=== PATIENT | male | born 1940 | race Caucasian/White ===

== ENCOUNTER 2017-03-16 14:25 | Outpatient (CLI) | payer MEDICARE ==
--- NOTE | 2017-03-16 17:44 | XRAY Report ---
TWO VIEW CHEST: 03/16/2017 CLINICAL INDICATION: Decreased breath sounds right base. COMPARISON: 10/15/2014 Frontal and lateral views of the chest demonstrate a normal cardiac silhouette. The lungs remain hyp erinflated. No focal infiltrate, effusion, or pneumothorax is present. IMPRESSION: STABLE COPD. NO EVIDENCE OF ACUTE CARDIOPULMONARY DISEASE. JOB #: [id number] EXT JOB #:[id number]
== END 2017-03-16 14:26 | disposition home or self-care (01) ==
LOC: DI 14:25
PROVIDERS: ATTEND Physician Assistant Medical
DX: J44.9 Chronic obstructive pulmonary disease, unspecified (principal)
CPT/HCPCS: 71020

== ENCOUNTER 2017-04-03 10:55 | Outpatient (CLI) | payer MEDICARE ==
--- NOTE | 2017-04-03 12:56 | XRAY Report ---
THREE VIEW LEFT SHOULDER: 04/03/2017 CLINICAL INDICATION: Pain. FINDINGS: Internal and external rotational views and a scapular Y view of the left shoulder demonstr ate mild osteoarthritis of the glenohumeral joint. There is no evidence of acute fracture or dislocat ion. No radiopaque foreign body is seen in the soft tissues. IMPRESSION: MILD OSTEOARTHRITIS. JOB #: [id number] EXT JOB #:[id number]
== END 2017-04-03 10:56 | disposition home or self-care (01) ==
LOC: DI 10:55
PROVIDERS: ATTEND Internal Medicine
DX: M19.012 Primary osteoarthritis, left shoulder (principal)

== ENCOUNTER 2018-12-24 11:45 | Outpatient (CLI) | payer MEDICARE ==
[2018-12-24 12:39] LABS: BASOPHILS % (AUTO) 0.5 %; EOSINOPHILS # (AUTO) 0.2 10^3/uL (0.0-0.7); HGB - HEMOGLOBIN 13.1 g/dL (14.0-18.0); LYMPHOCYTES # (AUTO) 2.1 10^3/uL (1.5-3.5); MEAN CORPUSCULAR HEMOGLOBIN 32.3 pg (27.0-31.0); MEAN CORPUSCULAR HGB CONC 33.7 g/dL (32.0-36.0); MONOCYTES # (AUTO) 0.6 10^3/uL (0.0-1.0); MONOCYTES % (AUTO) 10.3 %; NEUTROPHILS # (AUTO) 2.9 10^3/uL (1.5-6.6); PLT - PLATELET COUNT 180 10^3/uL (130-450); RED BLOOD COUNT 4.05 10^6/uL (4.70-6.10); WHITE BLOOD COUNT 5.9 x10^3/uL (4.8-10.8)
[2018-12-24 13:17] LABS: BUN - BLOOD UREA NITROGEN 21 mg/dL (6-20); CALCIUM 11.2 mg/dL (8.5-10.3); CARBON DIOXIDE - CO2 28 mmol/L (21-32); CHLORIDE 103 mmol/L (101-111); CREATININE 1.2 mg/dL (0.6-1.2); GFR - MDRD 58 (>89); GLUCOSE 114 mg/dL (70-100); SODIUM 140 mmol/L (135-145)
[2018-12-24 14:19] LABS: T4 (THYROXINE) 8.75 ug/dL (6.09-12.23)
[2018-12-24 14:22] LABS: CRP - C-REACTIVE PROTEIN < 1.0 mg/dL (0-1.0)
[2018-12-24 14:23] LABS: THYROID STIMULATING HORMONE 1.62 uIU/mL (0.34-5.60)
--- NOTE | 2018-12-24 16:11 | XRAY Report ---
Reason: PERICARDIAL FRICTION RUB Procedure Date: 12/24/2018 Accession Number: [id number] / [id number] Procedure: XR - Chest 2 View X-Ray CPT Code: 42156 FULL RESULT: EXAM: CHEST RADIOGRAPHY EXAM DATE: 12/24/2018 12:01 PM. CLINICAL HISTORY: PERICARDIAL FRICTION RUB. COMPARISON: CHEST 2 VIEW PA/LAT 05/17/2017 9:36 AM. TECHNIQUE: 2 views. FINDINGS: Lungs/Pleura: No focal opacities evident. No pleural effusion. No pneumothorax. Normal volumes. Mediastinum: Heart and mediastinal contours are unremarkable. Other: None. IMPRESSION: No focal consolidation. RADIA
== END 2018-12-24 11:46 | disposition home or self-care (01) ==
LOC: DI 11:45
PROVIDERS: ATTEND Family Medicine
DX: R01.2 Other cardiac sounds (principal)
CPT/HCPCS: 36415; 71046; 80048; 84436; 84443; 84481; 85025; 85651; 86140

== ENCOUNTER 2018-12-25 10:44 | Emergency (ER) | payer MEDICARE ==
[2018-12-25] MEDS ORDERED: LIDOCAINE PATCH 5% TOP STA (11:23)
[2018-12-25 11:33] LABS: BASOPHILS % (AUTO) 0.5 %; EOSINOPHILS # (AUTO) 0.2 10^3/uL (0.0-0.7); LYMPHOCYTES % (AUTO) 32.6 %; MEAN CORPUSCULAR HEMOGLOBIN 32.3 pg (27.0-31.0); MEAN CORPUSCULAR HGB CONC 33.6 g/dL (32.0-36.0); MEAN CORPUSCULAR VOLUME 96.3 fL (80.0-94.0); MEAN PLATELET VOLUME 9.6 fL (7.4-11.4); MONOCYTES # (AUTO) 0.6 10^3/uL (0.0-1.0); MONOCYTES % (AUTO) 10.4 %; NEUTROPHILS # (AUTO) 3.2 10^3/uL (1.5-6.6); PLT - PLATELET COUNT 170 10^3/uL (130-450); RED BLOOD COUNT 4.02 10^6/uL (4.70-6.10); WHITE BLOOD COUNT 6.1 x10^3/uL (4.8-10.8)
--- NOTE | 2018-12-25 11:38 | ED Physician Documentation ---
PD HPI CHEST PAIN - Stated complaint Stated Complaint: CHEST PX - Chief complaint Chief Complaint: Cardiac - History obtained from History obtained from: Patient, Family - History of Present Illness Timing - onset: How many months ago (1) Timing - onset during: Other (movement) Timing - duration: Months (1) Timing - details: Gradual onset, Still present, Other (worse in the last 2 days) Quality: Sharp Location: Right chest Radiation: Other (none) Improved by: Rest Worsened by: Movement, Palpation, Other (deep breathing) Associated symptoms: No: Shortness of air, Diaphoresis, Nausea, Vomiting, Feeling faint / dizzy, General Weakness, Palpitations, Cough Similar symptoms before: Has not had sx before Recently seen: Clinic (yesterday had a chest xray) Review of Systems Ten Systems: 10 systems reviewed and negative Constitutional: denies: Fever, Chills Cardiac: reports: Chest pain / pressure Respiratory: denies: Dyspnea, Cough GI: denies: Abdominal Pain, Nausea, Vomiting Skin: denies: Rash Musculoskeletal: denies: Neck pain, Back pain, Extremity pain, Extremity swelling Neurologic: denies: Focal weakness, Numbness Immunocompromised: reports: Other (hx of multiple myeloma) PD PAST MEDICAL HISTORY - Past Medical History Past Medical History: Yes Cardiovascular: Hypertension Respiratory: Asthma, Pneumonia, Other Endocrine/Autoimmune: None GI: None : Benign prostate hypertrophy HEENT: None Psych: None Musculoskeletal: Osteoarthritis Derm: Other - Past Surgical History Past Surgical History: Yes General: Colonoscopy Ortho: Hip replacement, Spine surgery HEENT: Tonsil/Adenoidectomy - Present Medications Home Medications: Ambulatory Orders Medication Instructions Recorded Confirmed Finasteride [Proscar] 5 mg PO DAILY 11/19/12 10/17/18 RX: Hydrochlorothiazide 25 mg PO DAILY 11/19/12 10/17/18 RX: Potassium Chloride 20 meq PO BID 11/19/12 10/17/18 Albuterol [Ventolin Hfa] 1 puffs INH DAILY PRN 02/04/15 10/17/18 Doxazosin [Cardura] 12 mg PO DAILY 02/15/17 10/17/18 Calcium Carbonate [Tums (Calcium 500 mg PO ONCE PRN 02/21/18 10/17/18 Carbonate 500mg)] RX: Aspirin 81 mg PO DAILY 02/21/18 10/17/18 Lenalidomide [Revlimid] 1 udtab ORAL DAILY 03/07/18 10/17/18 RX: dexAMETHasone [Dexamethasone] 1 tab ORAL DAILY 03/07/18 10/17/18 Psyllium [Metamucil] 1 packet PO DAILY PRN 03/21/18 10/17/18 RX: dexAMETHasone [Dexamethasone] 12 mg PO Q7D 05/16/18 10/17/18 RX: Lidocaine Ointment 5% 1 applic TOP BID 10/17/18 10/17/18 [Xylocaine Ointment 5%] RX: HYDROmorphone [Dilaudid] 2 mg PO Q6H PRN #20 tablet 12/25/18 - Allergies Allergies/Adverse Reactions: Allergies Allergy/AdvReac Type Severity Reaction Status Date / Time No Known Drug Allergies Allergy Verified 10/17/18 08:42 - Social History Does the pt smoke?: No Smoking Status: Never smoker Does the pt drink ETOH?: Yes Does the pt have substance abuse?: No - Immunizations Immunizations are current?: Yes - POLST Patient has POLST: No PD ED PE NORMAL - Vitals Vital signs reviewed: Yes - General General: Alert and oriented X 3, No acute distress, Well developed/nourished - HEENT HEENT: Atraumatic - Neck Neck: Supple, no meningeal sign, No JVD - Cardiac Cardiac: RRR, No murmur, No gallop, No rub - Respiratory Respiratory: No respiratory distress, Clear bilaterally - Abdomen Abdomen: Soft, Non tender, Non distended - Male Male : Deferred - Rectal Rectal: Deferred - Derm Derm: Normal color, Warm and dry, No rash - Extremities Extremities: No deformity, No tenderness to palpate, No edema - Neuro Neuro: Alert and oriented X 3 Eye Opening: Spontaneous Motor: Obeys Commands Verbal: Oriented GCS Score: 15 - Psych Psych: Normal mood, Normal affect PD ED PE EXPANDED - Cardiac Cardiac: Chest wall TTP (right mid chest wall, moderate, no crepitus) Results - Vitals Vitals: Oxygen O2 Source [] Room air O2 Source [] Room air O2 Source Room air - EKG (time done) 11:06 Rate: Rate (enter#) Rhythm: NSR, Other (occasional PVCs) [place]: Normal Intervals: Normal SC QRS: Normal Computer interpretation: Agree with computer - Labs Labs: Laboratory Tests 12/25/18 12/25/18 12/25/18 11:26 11:26 11:26 WBC 6.1 RBC 4.02 L Hgb 13.0 L Hct 38.7 L MCV 96.3 H MCH 32.3 H MCHC 33.6 RDW 13.0 Plt Count 170 MPV 9.6 Neut # (Auto) 3.2 Lymph # (Auto) 2.0 [place] # (Auto) 0.6 Eos # (Auto) 0.2 Baso # (Auto) 0.0 Absolute Nucleated RBC 0.00 Nucleated RBC % 0.0 PT INR Sodium 140 Potassium 3.9 Chloride 103 Carbon Dioxide 26 Anion Gap 11.0 BUN 22 H Creatinine 1.2 Estimated GFR (MDRD) 58 L Glucose 115 H Calcium 11.3 H Total Bilirubin 0.9 AST 21 ALT 23 Alkaline Phosphatase 67 Troponin I < 0.04 Total Protein 7.0 Albumin 4.1 Globulin 2.9 Albumin/Globulin Ratio 1.4 Lipase 36 12/25/18 11:26 WBC RBC Hgb Hct MCV MCH MCHC RDW Plt Count MPV Neut # (Auto) Lymph # (Auto) [place] # (Auto) Eos # (Auto) Baso # (Auto) Absolute Nucleated RBC Nucleated RBC % PT 11.2 INR 1.0 Sodium Potassium Chloride Carbon Dioxide Anion Gap BUN Creatinine Estimated GFR (MDRD) Glucose Calcium Total Bilirubin AST ALT Alkaline Phosphatase Troponin I Total Protein Albumin Globulin Albumin/Globulin Ratio Lipase - Rads (name of study) CXR Radiology: EMP read indepedently (no acute disease) CTA chest Radiology: Final report received (negative for PE, but sternal mass present as wall as vertebral mass in thoracic spine ) PD MEDICAL DECISION MAKING - ED course Complexity details: reviewed results, re-evaluated patient, considered differential, d/w patient, d/w family ED course: ddx - ACS, pleurisy, pericarditis, PE, pleural effusion, chest wall pain, co stochondritic, nonspecific chest pain, GERD, TAD 78 y/o M with hx of multiple myeloma in remission, pt with chest pain for months worsening for a few days. Worse with movement and deep breathing. EKG is nonischemic, CXR without acute abnormality. Given lidoderm patch and analgesics here. Given persistent pain despite treatment here. Thus obtained CTA to eval for pE. CTA neg for PE but shows a sternal mass c/w recurrent myeloma. Discussed this with pt, family, PCP and his Oncologist Dr. Olivares who will help in arranging radiation therapy. Pt however is currently stable for discharge with continued outpt mgmt. Departure - Departure Disposition: Home, Self Care Clinical Impression: Mass of sternum, Chest pain Condition: Fair Record reviewed to determine appropriate education?: Yes Follow-Up: Sebastian Dias MD [Primary Care Provider] - Prescriptions: RX: HYDROmorphone [Dilaudid] 2 mg PO Q6H PRN #20 tablet PRN Reason: Pain Comments: I discussed your symptoms and findings of your CT scan with Oncologist Dr. Olivares who will provide you with a referral to radiation oncology to treat your pain and your cancer. Take the hydromorphone as needed for pain. You should return to the ED if worsening symptoms. Discharge Date/Time: 12/25/18 16:42
[2018-12-25 11:47] LABS: PT - PROTHROMBIN TIME 11.2 secs (9.9-12.6)
[2018-12-25 11:51] LABS: ALBUMIN 4.1 g/dL (3.2-5.5); ALBUMIN/GLOBULIN RATIO 1.4 (1.0-2.2); BILIRUBIN,TOTAL 0.9 mg/dL (0.2-1.0); CALCIUM 11.3 mg/dL (8.5-10.3); CREATININE 1.2 mg/dL (0.6-1.2)
--- NOTE | 2018-12-25 12:05 | XRAY Report ---
Reason: chest pain Procedure Date: 12/25/2018 Accession Number: [id number] / [id number] Procedure: XR - Chest 2 View X-Ray CPT Code: 18783 FULL RESULT: EXAM: CHEST RADIOGRAPHY EXAM DATE: 12/25/2018 11:41 AM. CLINICAL HISTORY: Chest pain. COMPARISON: CHEST 2 VIEW 12/24/2018 11:52 AM. TECHNIQUE: 2 views. FINDINGS: Lungs/Pleura: No focal opacities evident. No pleural effusion. No pneumothorax. High lung volumes with flattened diaphragms. Mediastinum: Heart and mediastinal contours are stable, mild borderline cardiomegaly. Other: None. IMPRESSION: The lung volumes and flattened diaphragms are often seen in the setting of obstructive lung disease. RADIA
[2018-12-25] MEDS ORDERED: HYDROmorphone 1 MG/ML CARPUJECT IVP STA (13:08)
[2018-12-25] MEDS ORDERED: IOVERSOL 320 100 ML VIAL IVP ONE ×2 (13:22→13:50)
--- NOTE | 2018-12-25 14:53 | CT Report ---
Reason: Right chest pain with deep breath eval for PE Procedure Date: 12/25/2018 Accession Number: [id number] / [id number] Procedure: CT - ANGIO CHEST W/WO CPT Code: FULL RESULT: EXAM: CT ANGIOGRAM CHEST EXAM DATE: 12/25/2018 01:49 PM. CLINICAL HISTORY: Right chest pain with deep breath. Evaluate for pulmonary embolus. COMPARISON: None. TECHNIQUE: Routine helical imaging was performed through the chest in the pulmonary arterial phase. IV Contrast: OPTI 320, 80 mL. Reconstructions: Coronal 3-D MIP reconstructions. Sagittal and coronal. In accordance with CT protocol optimization, one or more of the following dose reduction techniques were utilized for this exam: automated exposure control, adjustment of mA and/or KV based on patient size, or use of iterative reconstructive technique. FINDINGS: Pulmonary Arteries: Diagnostic quality: Limited through the segmental arteries, adequate to the lobar arteries and most proximal segmental branch point. No evidence for sizable acute or chronic pulmonary emboli in this setting. RV/LV is within normal limits. There is no interventricular septal bowing. There is no reflux of contrast material in the IVC. Lungs/Pleura: No consolidation, nodules, or edema. No effusions or pneumothorax. Mediastinum: No lymphadenopathy by size criteria. No pericardial effusion. Thoracic Aorta: Mildly calcified. Upper Abdomen: Unremarkable. Other: There is a 2.6 x 2.8 cm lesion in the T11 vertebral body with destruction of the inferior endplate and discontinuity of the posterior border of the vertebral body against the spinal canal in the setting of osteopenia and diffuse lytic lesions. Separately, there is an expansile destructive mass in the sternum, approximately 4.5 x 4.8 cm as seen on image 103 series 12. A 1.7 cm subcutaneous superficial soft tissue nodule of the mid thoracic back most likely represents a sebaceous cyst. Malignant metastatic nodule would be highly unlikely unless the patient is found to have melanoma or similar entity known to present in this fashion. IMPRESSION: No PE. Osseous metastatic disease including sternal mass and T11 lytic lesion as described. RADIA The call report notification system was initiated by Dr. Isidro Hansen at 02:52 PM on 12/25/2018. The above call report findings were discussed with Erika Hedrick by Dr. Isidro Hansen at 02:54 PM on 12/25/2018.
[2018-12-25] MEDS ORDERED: HYDROcod/ACETAM 5/325 MG TABLET PO STA (16:34)
[2018-12-25 16:43] VITALS: BP 141/81
== END 2018-12-25 16:42 | disposition home or self-care (01) ==
LOC: ED 10:44
DX: R07.9 Chest pain, unspecified (principal); I49.3 Ventricular premature depolarization; M89.8X8 Other specified disorders of bone, other site; Z85.79 Personal history of other malignant neoplasms of lymphoid, hematopoietic and related tissues; I10 Essential (primary) hypertension; Z79.82 Long term (current) use of aspirin
CPT/HCPCS: 36415; 71046; 71275; 80053; 83690; 84484; 85025; 85610; 93005; 96374; 99284; 99285; A9270; J1170; Q9967

== ENCOUNTER 2018-12-27 08:26 | Outpatient (CLI) | payer MEDICARE ==
[2018-12-27 17:32] LABS: T4 (THYROXINE) 7.84 ug/dL (6.09-12.23)
[2018-12-27 17:35] LABS: THYROID STIMULATING HORMONE 2.69 uIU/mL (0.34-5.60)
== END 2018-12-27 08:27 | disposition home or self-care (01) ==
LOC: LAB.S 08:26
PROVIDERS: ATTEND Family Medicine
DX: R01.2 Other cardiac sounds (principal)
CPT/HCPCS: 36415; 80048; 84436; 84443; 84481; 85025; 85651; 86140

== ENCOUNTER 2019-01-16 17:56 | Outpatient (CLI) | payer MEDICARE ==
[2019-01-16 18:17] LABS: VBG PH 7.421 (7.31-7.41)
[2019-01-16 18:22] LABS: CALCIUM 9.7 mg/dL (8.5-10.3); CREATININE 1.4 mg/dL (0.6-1.2)
== END 2019-01-16 17:57 | disposition home or self-care (01) ==
LOC: LAB 17:56
PROVIDERS: ATTEND Family Medicine
DX: E83.52 Hypercalcemia (principal); C90.00 Multiple myeloma not having achieved remission; M99.9 Biomechanical lesion, unspecified; R01.2 Other cardiac sounds
CPT/HCPCS: 36415; 80048; 82330

== ENCOUNTER 2019-04-09 11:08 | Outpatient (CLI) | payer MEDICARE ==
--- NOTE | 2019-04-09 17:48 | CONSULTATION NOTE ---
Palliative Care Consultation - Referral Referring Provider: Dr. Jackie Olivares Time of Visit: 11:30-12:45 Referral setting: [facility] [place] [facility] [place] Reason: Pain of neoplastic origin/Recurrent Multiple Myeloma/COPD - Information Sources Records reviewed: Previous records reviewed History/Review of Systems obtained from: Patient, Family ( Abigail at visit) Exam limitations: No limitations - History of Present Illness Brief History of Present Illness: This is an 79-year-old gentleman who has had multiple myeloma originally diag nosed in 2006. He has had multiple treatments, including treatment with thalidomide and Velcade, Revlimid with residual peripheral neuropathy. He has been on Pomacyst since 02/08/2019. He did present to [facility] 12/25 with acute chest pain, and found to have hypercalcemia as well as recurrent multiple myeloma lesions to his sternum and thoracic spine for which he received radiation. He was hospitalized briefly over at [facility] during this time in December. He continues to struggle with pancytopenia, requiring recent transfusion. He does not perceive benefit, though did not get significant "bump" in his counts. He still remains quite anemic today. During that time he also had a history of malignant hypercalcemia with worsening renal functioning this has improved and resolved. Palliative care to see patient regarding ongoing and progressive pain, fatigue, advanced care planning as well as addressing goals of care. Medical/Surgical History - Past Medical History Cardiovascular: reports: Hypertension Respiratory: reports: Asthma, COPD, Pneumonia, Other Neuro: Tremors Endocrine/Autoimmune: reports: None GI: reports: None : reports: Benign prostate hypertrophy HEENT: reports: None Psych: reports: None Musculoskeletal: reports: Osteoarthritis, Fatigue Derm: reports: Other MRSA Hx?: No Other Past Medical History: hx of hypercalciumia - Past Surgical History General: reports: Colonoscopy Ortho: reports: Hip replacement, Spine surgery HEENT: reports: Tonsil/Adenoidectomy Derm: reports: Skin cancer surgery (malignant melanoma) Social History - Living Situation Living arrangement: At home Living Situation: With spouse/s.o. Support System: Patient is a retired telephone repairman, had come up from [place], he and his have been 54 years. They do have 2 daughters, and a huge circles of friends[place] She does have 2 sisters who are quite close to her and can provide support. She herself is pending surgery scheduled for replacement of the hip, that she needs to follow through on it is scheduled for April. Family History - Family History Family History: Mother: , Cancer (she at 100), Father: , CAD ( age 70) Medications/Allergies - Medications Home Medications: Ambulatory Orders Medication Instructions Recorded Confirmed Finasteride [Proscar] 5 mg PO DAILY 11/19/12 04/11/19 Potassium Chloride 20 meq PO BID 11/19/12 04/11/19 Albuterol [Ventolin Hfa] 2 puffs INH Q4HR PRN 02/04/15 04/11/19 Doxazosin [Cardura] 8 mg PO DAILY 02/15/17 04/11/19 dexAMETHasone [Dexamethasone] 20 mg PO Q7D 02/06/19 04/11/19 Pomalidomide [Pomalyst] 3 mg PO DAILY 02/07/19 04/11/19 Ixazomib Citrate [Ninlaro] 4 mg PO ONCE 04/03/19 04/11/19 Cholecalciferol (Vitamin D3) 2,000 unit PO DAILY 04/11/19 04/11/19 [Vitamin D3] Multivitamin [Multivitamins] 1 tab PO DAILY 04/11/19 04/11/19 Polyethylene Glycol 3350 [Miralax] 17 gm PO DAILY 04/11/19 04/11/19 Sennosides [Senna Lax] 1 tab PO BID PRN 04/11/19 04/11/19 oxyCODONE [Roxicodone] 5 mg PO Q4HR PRN 04/11/19 04/11/19 - Allergies Allergies/Adverse Reactions: Allergies Allergy/AdvReac Type Severity Reaction Status Date / Time No Known Drug Allergies Allergy Verified 03/26/19 11:27 Review of Systems - Constitutional Constitutional: reports: Fatigue, Weakness, Weight loss. denies: Fever, Chills - Ears, Nose & Throat Ears, Nose & Throat: reports: Hoarseness - Cardiovascular Cardiovascular: reports: Chest pain, Lightheadedness, Exertional dyspnea, Decr. exercise tolerance - Respiratory Respiratory: reports: Orthopnea, SOB at rest, SOB with exertion - Gastrointestinal Gastrointestinal: reports: Constipation, Poor appetite, Early satiety. denies: Nausea - Musculoskeletal Musculoskeletal: reports: Back pain, Stiffness, Muscle weakness - Integumentary Integumentary: reports: Dryness - Neurological Neurological: reports: General weakness, Numbness, Abnormal gait - Psychiatric Psychiatric: denies: Depression, Anxiety - Hematologic/Lymphatic Hematologic/Lymphatic: reports: Anemia (received transfusion with little improvment in SOB). denies: Recurrent infections - All Other Systems All Other Systems: reports: Reviewed and negative Physical Exam - Vital Signs Pulse Rate: 81 Respiratory Rate: 18 O2 Saturation: 98 (ra @ rest) Blood Pressure: 127/49 - Physical Exam General Appearance: positive: Alert, Mild distress (with breathlessness) Eyes Bilateral: positive: Normal inspection ENT: positive: No signs of dehydration, Other (voice hoarse; needing effort to get breath through vocal chords). negative: Pharyngeal erythema, Oral lesions Neck: positive: No JVD, Trachea midline Cardiovascular: positive: Regular rate & rhythm Respiratory: positive: Diminished throughout. negative: Wheezes, Rales, Rhonchi Abdomen: positive: Non-tender, Soft, Nml bowel sounds Skin: positive: Pallor, Dryness, Bruising Extremities: positive: No pedal edema Neurologic/Psychiatric: positive: Oriented x3, Mood/affect nml, Weakness Palliative Care - POLST Patient has POLST: No Pain: Pain worsening, Location (Patient presented in December with acute sternal pain, still has residual intermittent chest pains. Increased pain with deep inspiration, pain localized bilateral breast, up in shoulders, mid thoracic area over umbilical area as well as coccyx. Patient rates pain 9 out of 10. Has been using ibuprofen and acetaminophen without results. Patient quite anxious regarding using opioids, though has used in the past. Biggest fears are constipation and addiction.) Tiredness/Fatigue: Severe (7-10) Drowsiness/Sedation: Mild (1-3) Nausea: None Depression: None Anxiety: None Dyspnea: Severe (7-10), Comment (worsening; biggest QOL limitation) Anorexia: Moderate (4-6), Weight loss Sleep: Variable sleep pattern Constipation: Yes, Intermittent constipation Feelings of wellbeing/Perceived Quality of Life: Fair, Worsening Performance Status: Patient's most limiting factor for performance status, is his dyspnea and pain. He can only tolerate ambulate short distances without resting. He is able to manage his ADLs, but is quite sedentary given his limitations currently. He finds this quite frustrating. Has had to sleep in the recliner because it easier to get in and out of bed, for better breathing. - Palliative Care Discussion: Patient reports he has been fairly passive in his treatment program, has been able to tolerate quite well up to this point in time. This is time he has had significant impact on his quality of life and is quite concerned with his dyspnea and pain. He does feel like he has been on borrowed time, is quite pragmatic and somewhat pessimistic about looking forward as far as goals of care. He reports he does not feel like he asks enough questions, and does pre sent with multiple questions regarding his current disease process as well as implications of his lesions. Patient does not have any advanced care planning documents, will address this at future visits. 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 Patient presents with fairly significant symptom burden of severe dyspnea and severe pain. Patient does have pancytopenia and hemoglobin of 7.6 today. Palliative care meeting with patient to set up rapport, establish pain management program, and initiate conversation regarding advanced care planning for goals of care. Recommendations/Counseling Done: 1. Dyspnea. This is multifactorial in origin, patient has had recent radiation to his sternum, concern regarding pneumonitis. We will follow-up with Dr. jaswinder vincent if this is a possibility given his field of treatment. He is to have an echo tomorrow, though he did have one in the last 2 months that did not show any abnormal findings. Counseling provided regarding the role of anemia in the context of his dyspnea, essentially has less than a half tank of gas, and will feel effects with any kind of activity, patient does have poor activity tolerance currently. He is not hypoxic, but limited by his breathlessness. 2. Acute pain. Patient does have multiple lesions attributed to his multiple myeloma distributed across the T2, throughout the spine and sacrum. He also has underlying osteoarthritis and history of spinal surgery. Patient does awaken in pain, does not really able to find any kind of comfortable position. Patient's barriers for opioid use are worries about addiction and constipation. Counseling provided regarding addiction, and need for aggressive bowel program. 3. Constipation. Patient to initiate MiraLAX 17 g daily, and senna 1-2 tabs to titrate as needed for bowel program. Counseling provided and written instructions. 4. Fatigue. This is multifactorial in origin, mostly impacted also by his dyspnea and pain. Instructed and counseled regarding energy conservation, pacing activities, and staying active within the context of his activity tolerance. Patient most likely will need further transfusion support. 5. Recurrent multiple myeloma. Address questions regarding labs, symptom burden, and concerns regarding quality of life. Patient and are anxious to meet with provider again has to have more questions as they have been doing more research. Patient is hoping for the best, with extended quality and quantity of life, but does present with high symptom burden. 6. Advanced care planning. Palliative care established role of palliative care, development of rapport. Began exploration regarding goals of care, and setting of priorities. We will continue to explore in future visits. Time Spent: 75 minutes was given 50% of this done and counseling regarding pain and symptom management, opioid use and safety, bowel program, role of palliative care and anticipatory guidance. Plan for visit next week to follow-up on pain regimen, and titrate accordingly, she a long acting medication if indicated.
== END 2019-04-09 11:09 | disposition home or self-care (01) ==
LOC: PC 11:08
PROVIDERS: ATTEND Nurse Practitioner Adult Health
DX: Z51.5 Encounter for palliative care (principal); G89.3 Neoplasm related pain (acute) (chronic); R06.02 Shortness of breath; K59.00 Constipation, unspecified; J44.9 Chronic obstructive pulmonary disease, unspecified; D61.818 Other pancytopenia; C90.00 Multiple myeloma not having achieved remission; Z79.899 Other long term (current) drug therapy; Z79.891 Long term (current) use of opiate analgesic
CPT/HCPCS: 99205

== ENCOUNTER 2019-04-10 08:37 | Outpatient (CLI) | payer MEDICARE | END 2019-04-10 08:38 | disposition home or self-care (01) | LOC: DI 08:37 | PROVIDERS: ATTEND Internal Medicine Hematology & Oncology | DX: I35.0 Nonrheumatic aortic (valve) stenosis (principal); R06.02 Shortness of breath; R53.83 Other fatigue; C90.00 Multiple myeloma not having achieved remission | CPT/HCPCS: 93306 ==

== ENCOUNTER 2019-04-16 11:00 | Outpatient (CLI) | payer MEDICARE ==
--- NOTE | 2019-04-16 21:46 | CONSULTATION NOTE ---
Palliative Care Follow Up - Referral Referring Provider: Dr. Jackie Olivares Time of Visit: 9131-8189 Referral setting: [facility] – [place] Referral Reason: Pain of neoplastic origin/Dyspnea/Multiple Myeloma - Information Sources Records reviewed: Previous records reviewed History/Review of Systems obtained from: Patient, Family ( Gay @ visit) Exam limitations: No limitations - History of Present Illness Update Brief HPI Update: This an 79-year-old gentleman who has multiple myeloma of kappa light chain type, originally diagnosed in 2007. He has been on multiple treatments, and most recently on pomalidomide since 02/08/2019 and monthly Xgeva. Unfortunately he developed rapidly progressing bony mets, and required hospitalization at [facility] secondary to bone pain and hypercalcemia 12/25/2018, received palliative radiation to his sternum and thoracic spine. Patient has experienced pancytopenia, and though his counts have not worsened they have not improved his hemoglobin is 7.6 today. Patient's most distressing and persistent symptom that he rates a 10 out of 10 has been his dyspnea. He is only able to ambulate short distances, without resting. He has increased discomfort with deep inspiration, and poor activity tolerance. He is mostly sedentary, and certainly is most likely multifactorial with his anemia, but of concern particularly on the impact of his quality of life. On exam, he does have diminished breath sounds in the right lower lobe, no wheezing though he does report he has had some on and off but not responsive to his inhaler. He denies any fever or chills, any cough, but has developed some hoarseness that starts in the morning and resolves by evening. He denies pain with this, but is quite frustrated with his ongoing weakness and limiting breathlessness. His O2 sats are 98% at rest, with ambulation of 30 feet they decreased to 90%, and is getting quite concerned overall. He did have an echo on 04/10 which showed an ejection fraction of 55 to 60%, mild aortic stenosis and mildly abnormal right heart pressures. It did rule out any pericardial effusion, or pleural effusion. The other problematic symptom has been his pain, he does rated at an 8 out of 10. I did initiate [id number] oxycodone at 5 mg, which he has had no improvement in his pain management. His pain is fairly localized on the left and right chest area as well as in the back and scapula. Reports he has significant pain with twisting or turning, particularly getting in and out of bed. He reports is progressing as far as his ability to lift his arms over his head, this is limited both by pain and dyspnea. He also has some low-grade pain in his lumbar area no recent MRI showed T2 hyperintense marrow replacing lesions occupying the entirety of the imaged spine and sacrum, and some mild central canal bilateral for foraminal stenosis at L3-L4. Patient did try two oxycodone at the time, and did have a reaction of feeling hot and flushed and dizzy, without any relief of pain so was unwilling to try again at higher dose. He has been averaging about 4-5 oxycodone 5 mg in 24 hours. Unfortunately this is quite discouraging as well. He is on dexamethasone 20 mg weekly, so would not be appropriate to add either high-dose nonsteroidal or steroids at this point. 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 Social History - Living Situation Living arrangement: At home Living Situation: With spouse/s.o. Support System: He has been quite active and involved in managing his home and household tasks up to this last couple months, his functional status has declined. He does have his who is pending hip surgery in April, they have 2 daughters and a great number of friends. Medications/Allergies - Medications Home Medications: Ambulatory Orders Medication Instructions Recorded Confirmed Finasteride [Proscar] 5 mg PO DAILY 11/19/12 04/16/19 Potassium Chloride 20 meq PO BID 11/19/12 04/16/19 Albuterol [Ventolin Hfa] 2 puffs INH Q4HR PRN 02/04/15 04/16/19 Doxazosin [Cardura] 8 mg PO DAILY 02/15/17 04/16/19 dexAMETHasone [Dexamethasone] 20 mg PO Q7D 02/06/19 04/16/19 Pomalidomide [Pomalyst] 3 mg PO DAILY 02/07/19 04/16/19 Ixazomib Citrate [Ninlaro] 4 mg PO ONCE 04/03/19 04/16/19 Cholecalciferol (Vitamin D3) 2,000 unit PO DAILY 04/11/19 04/16/19 [Vitamin D3] Multivitamin [Multivitamins] 1 tab PO DAILY 04/11/19 04/16/19 Polyethylene Glycol 3350 [Miralax] 17 gm PO DAILY 04/11/19 04/16/19 Sennosides [Senna Lax] 1 tab PO BID PRN 04/11/19 04/16/19 oxyCODONE [Roxicodone] 5 mg PO Q4HR PRN 04/11/19 04/16/19 Gabapentin 100 mg PO ACHS MDD titrating 04/16/19 04/16/19 fentaNYL [Fentanyl 12mcg patch] 12 mcg TOP .Q72 HOURS MDD titrating 04/16/19 04/16/19 - Allergies Allergies/Adverse Reactions: Allergies Allergy/AdvReac Type Severity Reaction Status Date / Time No Known Drug Allergies Allergy Verified 03/26/19 11:27 Review of Systems - Constitutional Constitutional: reports: Fatigue, Weakness, Poor appetite, Weight loss. denies: Fever, Chills - Ears, Nose & Throat Ears, Nose & Throat: reports: Hoarseness - Cardiovascular Cardiovascular: reports: Exertional dyspnea, Decr. exercise tolerance, Orthopnea. denies: Edema - Respiratory Respiratory: reports: Wheezing (intermittent), SOB at rest, SOB with exertion - Gastrointestinal Gastrointestinal: reports: Poor appetite, Early satiety. denies: Constipation (managing with bowel program), Nausea - Musculoskeletal Musculoskeletal: reports: Back pain, Stiffness, Limited range of motion, Muscle weakness - Integumentary Integumentary: reports: Dryness - Neurological Neurological: reports: General weakness - Psychiatric Psychiatric: denies: Depression, Anxiety - Hematologic/Lymphatic Hematologic/Lymphatic: reports: Anemia (severe 7.6 hgb) - All Other Systems All Other Systems: reports: Reviewed and negative Physical Exam - Vital Signs Temperature: 36.8 C Pulse Rate: 86 Respiratory Rate: 18 (16 with activity) O2 Saturation: 98 (@ rest; 90 with activiy) Blood Pressure: 122/50 (sitting 126/63 standing) - Physical Exam General Appearance: positive: Moderate distress, Anxious Eyes Bilateral: negative: Conjunctivae nml (pallor) ENT: negative: Pharyngeal erythema Neck: positive: Trachea midline Cardiovascular: positive: Regular rate & rhythm, Systolic murmur Respiratory: positive: Other (decreased RLL). negative: Wheezes, Rales, Rhonchi Abdomen: positive: Non-tender, Soft Skin: positive: Pallor, Dryness Extremities: positive: No pedal edema Neurologic/Psychiatric: positive: Oriented x3, Mood/affect nml, Weakness Palliative Care - POLST Patient has POLST: No Pain: Location (bilateral chest area anteriorly; back in scapular area with lower back pain less intense), Severity (8/10) Tiredness/Fatigue: Severe (7-10) Drowsiness/Sedation: Moderate (4-6) Nausea: None Depression: None Anxiety: None Dyspnea: Severe (7-10) Anorexia: Moderate (4-6) Sleep: Variable sleep pattern Constipation: Yes, Opoid induced, Managed Feelings of wellbeing/Perceived Quality of Life: Poor, Worsening Performance Status: Patient's functional status continues to deteriorate, is quite limited by his dyspnea and pain. Spends most of his time in the recliner, changing "chairs". Is unable to tolerate participating in his usual activities or doing household tasks. He is limited in his ambulation because of his need for frequent rest periods and is quite frustrated overall at his functional decline. - Palliative Care Discussion: Patient continues to describe his current situation as being on "borrowed time". He does remain quite concerned and discouraged his quality of life. Finds it quite discouraging to need as much support as he is needing, and not be able to participate in day-to-day activities. Results - Lab Results Lab results reviewed: Yes Impression and Recommendations - Palliative Care Impression: This is an 79-year-old gentleman with multiple myeloma of kappa light chain type, with progressive disease, currently on Pomalidomide and Ninlaro. Patient continues with severe and limiting dyspnea, persistent anemia with a hemoglobin was 7.6, pain unresponsive to low-dose opioids and deteriorating quality of life. I will have care providing support regarding pain and symptom management and advanced care planning for goals of care. Palliative care providing support for pain and symptom management and pursuing further defining goals of care. Recommendations/Counseling Done: 1. Dyspnea. This is multifactorial in origin, did follow-up with Dr. Fisher, did not feel field of radiation captured enough to make at risk for pneumonitis related to radiation. Patient did have echo, but does not reflect the severity of his symptomology. Patient does continue with persistent hemoglobin 7.6. He had declined further transfusion last week, as he did not see it helped dramatically. We did discuss in the context of his low counts, expectations would be to improve mildly functional status, with possible improvement in his dyspnea. His felt he was more active after the transfusion, and he admitted probably had higher expectations with hope for resolution of his breathlessness. Patient does have history of wheezing, denies any fever chills, does not present with cough but is at high risk for infection, as well as on an immunomodulator and not on any prophylactics for thromboembolism. Patient would like to pursue anything that might improve his shortness of breath, will go ahead and follow up on transfusion, will also get chest x-ray to rule out any infection or other cues given today's findings. 2. Acute on chronic pain. Patient does have multiple lesions attributed to his multiple myeloma, his most recent imaging though shows it is across T2 and 3 spine and sacrum. His pain is mostly located bilaterally in his chest and rib area as well as scapula and lower back. Patient did not get any relief with low-dose oxycodone, had a reaction with taking 2 oxycodone and hesitant to escalate his opioids. Patient would be a good candidate for methadone, but is contraindicated with his current Pomalyst. Patient is not a candidate for high- dose NSAIDs and agreement to try some titration of long-acting medication. We will go ahead and start fentanyl 12 mcg patch, with hope for slow steady increase will get some relief. We will also add some gabapentin 100 mg at bedtime, and titrate up accordingly for not only his baseline neuropathy but to improve his pain on awakening and sleep. Plan to call in 3 days and titrate if patient tolerating. Counseling provided regarding opioid safety, Narcan nasal spray given with instruction. Oncology is documented patient not candidate for further radiation, though patient did not perceive much relief of pain though did have tumor shrinkage. 3. Constipation. Patient is taking his daily MiraLAX and senna with good results. 4. Fatigue. This is multifactorial in origin, mostly impacted by his dyspnea and pain and poor sleep. Instructed and counseled regarding energy again conservation pacing activities and staying within the context of his activity tolerance. Patient will most likely need transfusion support ongoing. 5. Recurrent multiple myeloma. Patient does not have appointment for several weeks with provider, is feeling quite anxious. Patient continues to hope for the best with extended quality and quantity of life, but continues to present with high symptom burden. 6. Advanced care planning. Given the acuity and focus on symptoms today, did not explore further advanced care planning, will continue to explore in further visits with expectation to meet next week. 1730 Chest x-ray results returned, unfortunately not read ~end of the day. I will follow-up with oncology tomorrow, findings include possible minimal left CP angle blunting, left lung grossly clear. But did reveal new healing fractures left sixth and ninth lateral, right fourth anterior and right seventh lateral ribs. This could explain the acuteness and pattern of his pain, it was compared to his chest angio 12/25. Spoke with patient and on phone, they were unaware of any imaging over [facility] that revealed any fractures, and these do appear to be more subacute, does not mention it in his MRI of his lumbar spine done on 03/15. Patient also has new right basilar airspace process appearing since 12/25/2018. Patient does not present with any acute signs or symptoms of infection, though is pancytopenic. Will follow up with Dr. Olivares tomorrow if wants further follow-up or testing as on meds increase risk of thromboembolism. He does want to pursue transfusion, will follow up and facilitate tomorrow after speaking with oncology. Time Spent: 45 minutes with greater than 50% of this done in counseling regarding pain and symptom management, anticipatory guidance, and coordination of care.
== END 2019-04-16 11:01 | disposition home or self-care (01) ==
LOC: PC 11:00
PROVIDERS: ATTEND Nurse Practitioner Adult Health
DX: Z51.5 Encounter for palliative care (principal); G89.3 Neoplasm related pain (acute) (chronic); R06.02 Shortness of breath; K59.03 Drug induced constipation; T40.2X5A Adverse effect of other opioids, initial encounter; C90.00 Multiple myeloma not having achieved remission; Z79.899 Other long term (current) drug therapy; Z79.891 Long term (current) use of opiate analgesic
CPT/HCPCS: 99215

== ENCOUNTER 2019-04-16 12:30 | Outpatient (CLI) | payer MEDICARE ==
--- NOTE | 2019-04-16 14:08 | XRAY Report ---
Reason: DYSPNEA,INCREASE WHEEZING,HOARNESS RLL Procedure Date: 04/16/2019 Accession Number: [id number] / [id number] Procedure: XR - Chest 2 View X-Ray CPT Code: 91787 FULL RESULT: EXAM: CHEST RADIOGRAPHY EXAM DATE: 04/16/2019 12:47 PM. CLINICAL HISTORY: DYSPNEA,INCREASE WHEEZING, hoarseness. COMPARISON: CHEST 2 VIEW 12/25/2018 11:34 AM CHEST 2 VIEW PA/LAT 05/17/2017 9:36 AM CHEST ANGIO 12/25/2018 1:40 PM. TECHNIQUE: 2 views. FINDINGS: Lungs/Pleura: Possible minimal left CP angle blunting. Left lung grossly clear Mediastinum: Heart and mediastinal contours are unremarkable. Other: New healing fracture left sixth and ninth lateral, right fourth anterior, and right seventh lateral ribs. Stable degenerative change in the spine. IMPRESSION: New right basilar airspace process appearing since 12/25/2018. Several new bilateral subacute healing rib fractures. RADIA
== END 2019-04-16 12:31 | disposition home or self-care (01) ==
LOC: DI 12:30
PROVIDERS: ATTEND Nurse Practitioner Adult Health
DX: S22.43XA Multiple fractures of ribs, bilateral, initial encounter for closed fracture (principal); R91.8 Other nonspecific abnormal finding of lung field
CPT/HCPCS: 71046

== ENCOUNTER 2019-04-23 11:05 | Outpatient (CLI) | payer MEDICARE ==
--- NOTE | 2019-04-23 19:39 | CONSULTATION NOTE ---
Palliative Care Follow Up - Referral Referring Provider: Dr. Jackie Olivares Time of Visit: [id number] [place] [facility] [place] Reason: Pain of neoplastic origin/MM/dyspnea - Information Sources Records reviewed: Previous records reviewed History/Review of Systems obtained from: Patient, Family ( Abigail) Exam limitations: No limitations - History of Present Illness Update Brief HPI Update: This is an 79-year-old gentleman who has multiple myeloma of kappa light chain type, originally diagnosed in 2017. He has been on multiple treatments and most recently on pomalidomide since 01/2019 and monthly Xgeva. Has also added Ninlaro. Unfortunately continues to have rapidly progressing bone mets, required hospitalization at [facility] in December secondary to tumor in his sternum and thoracic spine and received palliative radiation. Patient has continued with progressive developing and increase severity of ch[place] n, had originally tried multiple medications earlier in the summer, without results. After radiation has been using acetaminophen and ibuprofen without results. He had initiated fentanyl up to 25 mcg patch, with little impact as well as regular scheduled oxycodone 5 mg. He continues with persistent pain, though it has decreased to 6 out of 10 from 10 out of 10. He did present with increased respiratory and dyspnea last time on our visit 04/16. Unfortunately on looking at chest xray 04/16 he did present with new healing fractures of his left sixth and ninth lateral ribs as well as right fourth anterior and right seventh lateral ribs. These correlate with patient's description of his pain which is bilateral left upper chest area and right upper chest area with left greater than right. He now presents with bilateral pain in his groin particularly with weightbearing, and residual long-standing lower extremity pain in his lumbar area. Patient did develop some sharp shooting electric pains in the area of his left nipple breast area, this was exacerbated with movement, and was persistent over the weekend. He did not share this with his , she reports he is stoic and often downplays his symptoms. He had no chest heaviness no change in breathlessness, no nausea, no radiation to his jaw. Certainly is concern for chest pain, but also concern for ongoing escalating bone pain in context of known pathologic fractures. Patient had his fentanyl patches on that side, thought it was a reaction though there was no redness or erythema and removed patches has been without fentanyl for about 24 hours, with no change in intensity of pain he has been using his oxycodone.Patient is quite discouraged by his ongoing level of discomfort, we discussed possible radiation as a intervention, he has had some ongoing pancytopenia and concern for transportation issues. But am worried about opioid refractory pain at this point. Patient did receive 2 units of packed red blood cells, was feeling quite fabulous on Monday, this is also when he got his dexamethasone, his counts are slightly improved. His dyspnea orinally improved, now is persistent and has worsened again, but not back to the severity. His chest x-ray 04/16 also showed new right basilar airspace process in consultation with oncologist, I did prescribe Z-Omar, his hypoxia is improved today, may need follow-up chest x-ray to confirm resolution next week. Social History - Living Situation Living arrangement: At home Living Situation: With spouse/s.o. Support System: Patient is , they have 2 daughters, and supportive community. 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 They have been to [place] in 1996, does have some support from her sisters and she has pending surgery scheduled in April herself. Medications/Allergies - Medications Home Medications: Ambulatory Orders Medication Instructions Recorded Confirmed Finasteride [Proscar] 5 mg PO DAILY 11/19/12 04/24/19 Potassium Chloride 20 meq PO BID 11/19/12 04/24/19 Albuterol [Ventolin Hfa] 2 puffs INH Q4HR PRN 02/04/15 04/24/19 Doxazosin [Cardura] 8 mg PO DAILY 02/15/17 04/24/19 dexAMETHasone [Dexamethasone] 20 mg PO Q7D 02/06/19 04/24/19 Pomalidomide [Pomalyst] 3 mg PO DAILY 02/07/19 04/24/19 Ixazomib Citrate [Ninlaro] 4 mg PO ONCE 04/03/19 04/24/19 Cholecalciferol (Vitamin D3) 2,000 unit PO DAILY 04/11/19 04/24/19 [Vitamin D3] Multivitamin [Multivitamins] 1 tab PO DAILY 04/11/19 04/24/19 Polyethylene Glycol 3350 [Miralax] 17 gm PO DAILY 04/11/19 04/24/19 Sennosides [Senna Lax] 1 tab PO BID PRN 04/11/19 04/24/19 oxyCODONE [Roxicodone] 5 mg PO Q4HR PRN 04/11/19 04/24/19 Gabapentin 200 mg PO ACHS MDD titrating 04/16/19 04/24/19 Morphine ER 15 mg PO BID 04/24/19 04/24/19 - Allergies Allergies/Adverse Reactions: Allergies Allergy/AdvReac Type Severity Reaction Status Date / Time No Known Drug Allergies Allergy Verified 03/26/19 11:27 Review of Systems - Constitutional Constitutional: reports: Fatigue. denies: Fever, Chills, Night sweats - Ears, Nose & Throat Ears, Nose & Throat: reports: Hearing loss, Dry mouth - Cardiovascular Cardiovascular: reports: Chest pain (patient episode of localize left chest area pain; worsened with turning/movement tingling in nature; recurrent Monday on and off; no chest heaviness no radiation no increase in shortness of breath; point tenderness over area of fx improved today; has not had cardiac chest pain before), Exertional dyspnea, Decr. exercise tolerance - Respiratory Respiratory: reports: Orthopnea (sleeps better and more comfortably for pain and dyspnea in recliner), SOB at rest, SOB with exertion. denies: Cough, Sputum production - Gastrointestinal Gastrointestinal: reports: Good appetite. denies: Constipation (using bowel meds), Nausea, Reflux/heartburn - Musculoskeletal Musculoskeletal: reports: Back pain, Stiffness, Muscle weakness - Integumentary Integumentary: reports: Dryness - Neurological Neurological: reports: General weakness. denies: Dizziness - Psychiatric Psychiatric: denies: Depression, Anxiety - Hematologic/Lymphatic Hematologic/Lymphatic: reports: Anemia, Recurrent infections (treated with zpack related to chest xray findings of new right basilar airspace process) - All Other Systems All Other Systems: reports: Reviewed and negative Physical Exam - Vital Signs Temperature: 36.7 C Pulse Rate: 95 Respiratory Rate: 16 (20 with mild activity) O2 Saturation: 97 (ra @ rest; with amb improved 93%) Blood Pressure: 120/53 - Physical Exam General Appearance: positive: Alert, Mild distress Eyes Bilateral: positive: Normal inspection ENT: positive: No signs of dehydration Neck: positive: No JVD, Trachea midline Cardiovascular: positive: Regular rate & rhythm Respiratory: positive: Other (decreased RLL;). negative: Wheezes, Rales, Rhonchi Abdomen: positive: Soft, Nml bowel sounds Skin: positive: Pallor Extremities: positive: No pedal edema Neurologic/Psychiatric: positive: Oriented x3, Mood/affect nml, Weakness Palliative Care - POLST Patient has POLST: No Pain: Pain unchanged, Pain worsening, Location (Bilateral upper chest area; left greater than right; bilateral scapular area worsening with any movement; bilateral groin area; and mid lumbar area; see HPI) Tiredness/Fatigue: Moderate (4-6) Drowsiness/Sedation: Moderate (4-6) Nausea: None Depression: Mild (1-3) Anxiety: Mild (1-3) Dyspnea: Moderate (4-6) Anorexia: Mild (1-3) Sleep: Variable sleep pattern Constipation: Yes, Opoid induced, Managed Feelings of wellbeing/Perceived Quality of Life: Fair, No change Performance Status: Patient's functional status is severely impacted by his dyspnea and persistent pain. He is quite sedentary, is unable to tolerate participating household tasks. He had a very good day on Monday, and was hoping for ongoing improvement, is quite discouraged with progressive symptoms. - Palliative Care Discussion: Patient and do express concerns over patient's ongoing high symptom burden, and recurrent disease and what the implications are currently and into the future. They are anxious to meet with Dr. Olivares with questions about these issues. Patient does express discouragement at his current limitations and i nability to engage with activities that add to his quality of life. Results - Lab Results Lab results reviewed: Yes Lab and Imaging Results: Hematocrit 27.5; hemoglobin 8.9, his now neutropenic with 0.5 neutrophils, and WBCs 1.8 and platelets 75,000. He has been educated on neutropenic precautions by naturopathic oncology provider. Impression and Recommendations - Palliative Care Impression: This is an 79-year-old gentleman with multiple myeloma of kappa light chain type, with progressive disease particularly with advancing bone pain and lesions. Patient is currently on oral therapeutic agents, does continue with severe and limiting dyspnea, pancytopenia, and opioid resistant pain. Palliative care to continue with addressing pain and symptom management and anticipatory guidance. Recommendations/Counseling Done: 1. Dyspnea. This is multifactorial in origin, patient has been treated with Z- Omar, with some mild improvement as well as received 2 units of packed red blood cells. Patient would benefit from follow-up chest x-ray with visit next week, will follow up with oncology if indicated. Counseling provided to continue to pace activities and energy conservation. 2. Pain of neoplastic origin. Patient's titrated up to fentanyl 25 mcg patch, was discontinued related to patient's perception may have been a reaction on his left chest. We did discuss in the context of little effect, we will go ahead and initiate oral long-acting medication, as he is no longer read will start him on MS Contin 15 mg twice daily, he is instructed to use his oxycodone frequently for breakthrough pain and track. He is also been instructed to increase his gabapentin to 200 mg at night. Patient may benefit from low dose decadron for bone pain, will follow up with oncology if this is possible in the treatment plan. 3. Chest pain. Patient's pain correlates over rib area of healing fx, concerned may be progressive in nature or exacerbated with activity. Patient has been instructed if develops persistent pain again to have it evaluated as want to rule out cardiac in nature if needed, patient has had an echo has not had a history of cardiac issues in the past. Verbalized understanding. Currently tenderness on palpation over the area, exacerbated with movement. 4. Constipation. Patient is managing with MiraLAX and senna, reviewed bowel program. 5. Fatigue. This is multifactorial in origin, impacted by dyspnea, pain, and poor sleep. 6. Advanced care planning. Recent does not have any advanced care planning documents, is awaiting meeting with oncologist next week, hoping to have some further information regarding prognosis and expectations from treatment. We will continue to work with patient and on advanced care planning documents. Time Spent: 40 minutes with greater than 50% of this done in counseling regarding pain and symptom management, symptoms to access to ED evaluation, and anticipatory guidance.
== END 2019-04-23 11:06 | disposition home or self-care (01) ==
LOC: PC 11:05
PROVIDERS: ATTEND Nurse Practitioner Adult Health
DX: Z51.5 Encounter for palliative care (principal); G89.3 Neoplasm related pain (acute) (chronic); R06.02 Shortness of breath; R07.9 Chest pain, unspecified; R53.83 Other fatigue; K59.03 Drug induced constipation; T40.2X5A Adverse effect of other opioids, initial encounter; D64.9 Anemia, unspecified; C90.00 Multiple myeloma not having achieved remission; Z79.891 Long term (current) use of opiate analgesic; Z79.899 Other long term (current) drug therapy; Z92.3 Personal history of irradiation
CPT/HCPCS: 99215

== ENCOUNTER 2019-05-14 11:52 | Outpatient (CLI) | payer MEDICARE ==
--- NOTE | 2019-05-14 14:38 | CONSULTATION NOTE ---
Palliative Care Follow Up - Referral Referring Provider: Dr. Jackie Olivares Time of Visit: 7302-5596 Ref[place] [facility] [place] Reason: Pain of neoplastic origin/Dyspnea/Multiple Myeloma - Information Sources Records reviewed: Previous records reviewed History/Review of Systems obtained from: Patient, Family (SUNNY was present) Exam limitations: Clinical condition ([place], mild STM) - History of Present Illness Update Brief HPI Update: This is an 79-year-old gentleman who has multiple myeloma of kappa light chain type, originally diagnosed in 2017. He has been on multiple treatments most recently on pomalidomide since 01/2019, addition of Ninlaro, and monthly Xgeva. 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 Patient continues to have progressive and limiting dyspnea. He reports it is worse with ambulation, is only able to ambulate 10 to 15 feet. He is unable to cough secondary to pain, reports his pain location is bilateral over the breast area, and continues in his lower back. He also has peripheral neuropathy in his hands and feet. His morphine 15 mg extended release twice daily does appear to be manage his pain better, he does occasionally use an oxycodone in the middle the night when he awakens. He does have more pain laying flat, is more comfortable in his recliner. His pain is exacerbated with twisting or raising his arms, and has been quite limiting as far as his ability to manage his ADLs. His biggest complaint though as far as limiting quality of life and he continues to rate at a 10 out of 10 is his dyspnea. His past medical history includes hypertension, COPD, asthma, tremors, BPH, osteoarthritis, and history of hypercalcemia. Social History - Living Situation Living arrangement: At home Living Situation: With spouse/s.o. Support System: Is here today with his [id number], his Abigail has just had hip surgery. She is doing quite well. His [id number] will support them until tomorrow, and then their daughter is coming somewhat indefinitely to provide support over the holidays in particular. He and his have been 54 years, they have 2 daughters, and a supportive community. He is a retired telephone repairman. Medications/Allergies - Medications Home Medications: Ambulatory Orders Medication Instructions Recorded Confirmed Finasteride [Proscar] 5 mg PO DAILY 11/19/12 05/15/19 Potassium Chloride 20 meq PO BID 11/19/12 05/15/19 Albuterol [Ventolin Hfa] 2 puffs INH Q4HR PRN 02/04/15 05/15/19 Doxazosin [Cardura] 8 mg PO DAILY 02/15/17 05/15/19 dexAMETHasone [Dexamethasone] 20 mg PO Q7D 02/06/19 05/15/19 Pomalidomide [Pomalyst] 3 mg PO DAILY 02/07/19 05/15/19 Ixazomib Citrate [Ninlaro] 4 mg PO ONCE 04/03/19 05/15/19 Cholecalciferol (Vitamin D3) 2,000 unit PO DAILY 04/11/19 05/15/19 [Vitamin D3] Multivitamin [Multivitamins] 1 tab PO DAILY 04/11/19 05/15/19 Polyethylene Glycol 3350 [Miralax] 17 gm PO DAILY 04/11/19 05/15/19 Sennosides [Senna Lax] 1 tab PO TID PRN 04/11/19 05/15/19 oxyCODONE [Roxicodone] 5 mg PO Q4HR PRN 04/11/19 05/15/19 Gabapentin 200 mg PO ACHS MDD titrating 04/16/19 05/15/19 Morphine ER 15 mg PO TID 04/24/19 05/15/19 - Allergies Allergies/Adverse Reactions: Allergies Allergy/AdvReac Type Severity Reaction Status Date / Time No Known Drug Allergies Allergy Verified 04/30/19 09:23 Review of Systems - Constitutional Constitutional: reports: Fatigue, Weight stable. denies: Fever, Chills, Diaphoresis, Night sweats - Ears, Nose & Throat Ears, Nose & Throat: reports: Hearing loss - Cardiovascular Cardiovascular: reports: Exertional dyspnea, Decr. exercise tolerance - Respiratory Respiratory: reports: Cough (difficult to cough related to pain in bilateral rib cage), Orthopnea, SOB at rest, SOB with exertion, Pleuritic pain - Gastrointestinal Gastrointestinal: reports: Good appetite. denies: Constipation (managing with meds), Nausea, Reflux/heartburn - Genitourinary Genitourinary: reports: Frequency - Musculoskeletal Musculoskeletal: reports: Back pain, Muscle aches, Stiffness, Limited range of motion, Muscle weakness, Other (able to ambulate only short distances with needing to take rests) - Integumentary Integumentary: reports: Dryness - Neurological Neurological: reports: General weakness, Memory problems (mild) - Psychiatric Psychiatric: reports: Anxiety (worried about his limitations and SOB). denies: Depression - Hematologic/Lymphatic Hematologic/Lymphatic: reports: Anemia - All Other Systems All Other Systems: reports: Reviewed and negative Physical Exam - Vital Signs Temperature: 36.7 C Pulse Rate: 109 Respiratory Rate: 20 O2 Saturation: 98 (RA @ rest) Blood Pressure: 122/55 - Physical Exam General Appearance: positive: Alert, Mild distress, Anxious Eyes Bilateral: positive: Normal inspection ENT: positive: No signs of dehydration, Other (hoarseness of voice) Neck: positive: No JVD, Trachea midline. negative: Lymphadenopathy (R), Lymphadenopathy (L) Cardiovascular: positive: Regular rate & rhythm Respiratory: positive: Diminished throughout. negative: No respiratory distress (easily breathless with activity or talking), Wheezes, Rales, Rhonchi Abdomen: positive: Non-tender, Soft, Nml bowel sounds Skin: positive: Pallor, Dryness Extremities: positive: No pedal edema Neurologic/Psychiatric: positive: Oriented x3, Mood/affect nml, Weakness Palliative Care - POLST Patient has POLST: No Pain: Pain improved, Location (bilateral chest area; bilateral scapula; lower back pain; peripheral neuropathy of hands and feet), Comment (reports pain could be better though has improved; on MS Contin 15 mg BID) Tiredness/Fatigue: Severe (7-10) Drowsiness/Sedation: Moderate (4-6) Nausea: None Anorexia: Moderate (4-6) Dyspnea: Severe (7-10), Comment (feels no improvement) Depression: None Anxiety: Mild (1-3) Feelings of wellbeing/Perceived Quality of Life: Poor, Worsening Sleep: Variable sleep pattern (sleeps better with the pain relieved in recliner) Constipation: Yes, Opoid induced, Managed Performance Status: Patient is mostly limited by his dyspnea, his activities are limited as far as dressing, bathing, with his pain. He is only able to ambulate 8 to 10 feet without needing to rest. He is quite discouraged with his sedentary status. I would put him at a PPS of 60% - Palliative Care Discussion: Patient continues to be quite discouraged by his symptom burden, and limitations on his quality of life. The are having family for the holidays, his is doing well from surgery, he tries to keep a good attitude. describes him as quite stoic. And often not went complain, both are quite worried about the implications regarding his current decline and disease process. Results - Lab Results Lab results reviewed: Yes Impression and Recommendations - Palliative Care Impression: This is a 79 year old gentleman with multiple myeloma of kappa light chain type, with progressive disease with advancing bone pain and lesions. Patient is currently on oral therapeutic agents, continues to present with high symptom burden including severe and limiting dyspnea, ongoing pancytopenia, he has had some improvement in his pain. Palliative care to continue with addressing pain and symptom management and anticipatory guidance. Recommendations/Counseling Done: 1. Dyspnea. This is multifactorial in origin, patient reports his continued progress, with no improvement from baseline. Consult with oncologist, possibly rule out PE, does not feel this is in the differential. Patient does not present with any persistent signs of infection, no fever or chills. He continues with low counts, but finds this most limiting symptom. Will increase his morphine 15 mg to 3 times daily for his pain, counseling provided and may help as well with his persistent feeling of dyspnea and improve exercise tolerance. Counseled patient if patient had worsening shortness of breath, unrelieved with rest, increased cough or fever chills to seek follow-up at the ED. 2. Pain of neoplastic origin. Patient does perceive MS Contin 15 mg twice daily is more effective than the fentanyl, will go ahead and increase it to 3 times daily. Counseling provided regarding increasing bowel program as well, as well as can continue to use intermittent oxycodone for breakthrough pain. We will leave his current gabapentin dose at 200 mg at night, as not to add to sedation, and titrate next week as he continues to have persistent peripheral neuropathy. This information was reviewed with [id number], as patient can be forgetful, as well as follow-up call to his .Written instructions were provided. 3. Constipation. Patient reports he is managing with his MiraLAX senna, denies constipation at visit today. 4. Fatigue, this is multifactorial in origin impacted by dyspnea, pain, and intermittent poor sleep. Patient does do better in his recliner, both with his pain and dyspnea. Recommended to sleep in his recliner over his bed, to improve his sleep hygiene. 5. Multiple myeloma. Patient to receive instruction regarding G-CSF. Patient continues with somewhat limited in side into the seriousness of his illness, as well as his complications secondary to his disease. They are looking forward to their appointment with Dr. ram, as they have still multiple questions. 6. Advance care planning. Patient does not have advanced care planning documents, is awaiting meeting with oncologist, hoping to have further information regarding prognosis. His is not with him today, will not further explore advanced care planning documents but plan for next visit. Time Spent: 35 minutes with greater than 50% of this done in counseling regarding pain and symptom management, coordination of care with oncology, and anticipatory guidance.
== END 2019-05-14 11:53 | disposition home or self-care (01) ==
LOC: PC 11:52
PROVIDERS: ATTEND Nurse Practitioner Adult Health
DX: Z51.5 Encounter for palliative care (principal); R06.02 Shortness of breath; G89.3 Neoplasm related pain (acute) (chronic); R53.83 Other fatigue; K59.03 Drug induced constipation; T40.2X5D Adverse effect of other opioids, subsequent encounter; Z79.899 Other long term (current) drug therapy; C90.00 Multiple myeloma not having achieved remission; Z79.891 Long term (current) use of opiate analgesic; Z79.52 Long term (current) use of systemic steroids
CPT/HCPCS: 99214

== ENCOUNTER 2019-05-21 10:13 | Outpatient (CLI) | payer MEDICARE | END 2019-05-21 10:14 | disposition home or self-care (01) | LOC: RT 10:13 | PROVIDERS: ATTEND Internal Medicine Hematology & Oncology | DX: C90.00 Multiple myeloma not having achieved remission (principal) ==

== ENCOUNTER 2019-05-22 14:58 | Outpatient (CLI) | payer MEDICARE ==
--- NOTE | 2019-05-22 19:19 | CONSULTATION NOTE ---
Palliative Care Follow Up - Referral Referring Provider: Dr. Jackie Olivares Time of Visit: [id number] Referral setting: [facility] [place] Referral Reason: Pain of neoplastic origin/LE edema/Multiple Myeloma - Information Sources Records reviewed: Previous records reviewed History/Review of Systems obtained from: Patient, Family ( Abigail present for visit) Exam limitations: No limitations - History of Present Illness Update Brief HPI Update: This is a jarvis 79-year-old gentleman who has multiple myeloma of kappa light chain type, originally diagnosed in 2017. He has been on multiple treatments most recently on pomalidomide since 01/2019, with the addition of Ninlaro, and monthly Xgeva. 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 Palliative care has been working with him on his pain management, on 04/16/2019 he did have a chest x-ray that did show several new bilateral subacute healing rib fractures, these correlate with his acute and now chronic pain on bilateral chest areas, exacerbated by lifting or twisting, but has improved with the titration of the MS Contin 15 mg 3 times daily, he still uses occasional oxycodone at nighttime, as has more discomfort getting up and down and turning in bed. Other allusive symptom continues to be his progressive and limiting dyspnea. It is worse with any ambulation or activity, in response to his chest x-ray on 04/16 we did try some antibiotics as he had a new right basilar airspace, without any improvement. He had at that point in time had some symptoms of chills these have since abated. He is continue to be limited with an ambulation of 10 to 15 feet with needing frequent rest periods he was tested again, but this time with respiratory therapist for O2 eval. His O2 sats at rest were 97%, pulse of 86, with ambulation of 75 feet on room air 96% with a pulse of 110, and 150 feet O2 sats are 97% with a pulse of 128. Patient does not demonstrate any hypoxia, but does present with tachycardia and poor activity tolerance. He does have a pending referral to cardiology, as he is also now presented in the last few days with increased lower extremity edema, 1-2+ up to mid calf. His lungs are clear other than the decreased breath sounds in his right lower lobe. Patient's is present for exam, we had discussed if patient ever been on diuretics, he actually has been on furosemide in the past, and had it discontinued most likely response to his lower blood pressures and anemia, but had been continued on potassium. He is now receiving his second unit of RBCs, and did feel increased pressure and dyspnea after getting home yesterday. Social History - Living Situation Living arrangement: At home Living Situation: With spouse/s.o. Support System: Patient is here with his Abigail, she is just coming off hip surgery and feels significantly better. They are managing well at home. They do have their daughter presently visiting, and providing support. Unfortunately she is leaving in the next couple days. They do feel currently they have adequate support and are managing. Medications/Allergies - Medications Home Medications: Ambulatory Orders Medication Instructions Recorded Confirmed Finasteride [Proscar] 5 mg PO DAILY 11/19/12 05/23/19 Potassium Chloride 20 meq PO BID 11/19/12 05/23/19 Albuterol [Ventolin Hfa] 2 puffs INH Q4HR PRN 02/04/15 05/23/19 Doxazosin [Cardura] 8 mg PO DAILY 02/15/17 05/23/19 dexAMETHasone [Dexamethasone] 20 mg PO Q7D 02/06/19 05/23/19 Pomalidomide [Pomalyst] 3 mg PO DAILY 02/07/19 05/23/19 Ixazomib Citrate [Ninlaro] 4 mg PO ONCE 04/03/19 05/23/19 Cholecalciferol (Vitamin D3) 2,000 unit PO DAILY 04/11/19 05/23/19 [Vitamin D3] Multivitamin [Multivitamins] 1 tab PO DAILY 04/11/19 05/23/19 Polyethylene Glycol 3350 [Miralax] 17 gm PO DAILY 04/11/19 05/23/19 Sennosides [Senna Lax] 1 tab PO TID PRN 04/11/19 05/23/19 oxyCODONE [Roxicodone] 5 mg PO Q4HR PRN 04/11/19 05/23/19 Gabapentin 200 mg PO ACHS MDD titrating 04/16/19 05/23/19 Morphine ER 15 mg PO TID 04/24/19 05/23/19 Furosemide 20 mg PO DAILY MDD 5 days 05/23/19 05/23/19 - Allergies Allergies/Adverse Reactions: Allergies Allergy/AdvReac Type Severity Reaction Status Date / Time No Known Drug Allergies Allergy Verified 04/30/19 09:23 Review of Systems - Constitutional Constitutional: reports: Fatigue, Weakness, Weight loss (243). denies: Fever, Chills - Ears, Nose & Throat Ears, Nose & Throat: reports: Hearing loss, Hearing aids, Hoarseness (remains problematic for patient) - Cardiovascular Cardiovascular: reports: Edema (new LE for several days), Exertional dyspnea, Decr. exercise tolerance, Orthopnea - Respiratory Respiratory: reports: Cough (causes increased pain), Orthopnea, SOB with exertion. denies: SOB at rest - Gastrointestinal Gastrointestinal: reports: Early satiety. denies: Constipation - Musculoskeletal Musculoskeletal: reports: Stiffness, Muscle weakness, Assistive devices (using walker with better tolerance) - Integumentary Integumentary: reports: Dryness - Neurological Neurological: reports: General weakness - Psychiatric Psychiatric: denies: Depression, Anxiety - Hematologic/Lymphatic Hematologic/Lymphatic: reports: Anemia (receiving 2nd unit). denies: Recurrent infections - All Other Systems All Other Systems: reports: Reviewed and negative Physical Exam - Physical Exam General Appearance: positive: Alert Eyes Bilateral: positive: Normal inspection ENT: positive: No signs of dehydration Neck: positive: No JVD, Trachea midline Cardiovascular: positive: Regular rate & rhythm Respiratory: positive: Other (diminished RLL). negative: No respiratory distress (increased resp. effort with ambulation), Wheezes, Rales, Rhonchi Abdomen: positive: Non-tender, Soft Skin: positive: Pallor, Dryness Extremities: positive: Pedal edema (new 1-2 + up to mid calf) Neurologic/Psychiatric: positive: Oriented x3, Mood/affect nml, Weakness Palliative Care - POLST Patient has POLST: No Pain: Pain improved, Location (bilateral shoulder pain/thoracic are right greater than left; bilat scapular and lower back pain; peripheral neuropathy in hands and feet not improved on gabapentin) Tiredness/Fatigue: Severe (7-10) Drowsiness/Sedation: Mild (1-3) Nausea: None Anorexia: Moderate (4-6) Dyspnea: Severe (7-10) Depression: Mild (1-3) Anxiety: Mild (1-3) Feelings of wellbeing/Perceived Quality of Life: Fair, Improved Sleep: Sleep improved Constipation: Yes, Opoid induced, Managed Performance Status: Patient is limited, relating his activity only to able to ambulate short distances without needing breaks. This is related to his dyspnea, though does admit to increasing lower extremity weakness as he has not been able to be active for several months now. His pain is improved so is able to do more of his ADLs, he is using a walker with improved ambulation as far as gait and stable base. Discussion today regarding physical therapy, if would be of benefit. We will go ahead and do [id number], as patient is homebound, but will await outcome of cardiac consultation. - Palliative Care Discussion: Patient continues to be discouraged by his current quality of life, his pain is better but his dyspnea remains limiting as far as his ability to engage in things that bring him pleasure. He has had his daughter visiting, his is doing better after surgery, and appears in good spirits. 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 He is currently on oral therapeutic agents, has ongoing pancytopenia, receiving frequent transfusions. He has had improvement in his pain, but remains problematic and impactful with his dyspnea, he is pending now a cardiology referral. Palliative care to continue to provide support addressing pain and symptom management and anticipatory guidance. Recommendations/Counseling Done: 1. Pain of neoplastic origin. Patient is tolerating increased MS Contin 15 mg 3 times daily with no increase in side effects, he is using oxycodone intermittently, at bedtime, but otherwise has not felt the need for it. We did review again short acting/breakthrough pain management, if patient is experiencing increasing discomfort. present for visit today, does feel pain has improved and observations of him moving easier. Agreed we will keep current regimen, and continue to titrate as indicated. 2. Lower extremity edema. Patient has in the past been on furosemide, has presented with 3 to 4 days of increasing lower extremity edema, no significant change in his dyspnea. Will do short course of furosemide 20 mg x 5 days, as patient is receiving 2 units of packed red blood cells. He is already on baseline potassium. Instructed pending cardiology referral, to do daily weights, to hold furosemide if blood pressure less than 100/40, and if increased shortness of breath are worsening dyspnea at rest to seek urgent evaluation. Counseling provided regarding use of moderate support hose, and elevation of legs. 3. Constipation. Patient is managing with his MiraLAX and senna, denies constipation at visit today. 4. Fatigue. This is multifactorial in origin impacted by dyspnea, pain, and intermittently poor sleep. Patient does do better in his recliner as far as pain and dyspnea. 5. Generalized weakness. Counseling and discussion with patient and regarding outcome for physical therapy. Discussed patient has had increase sedentary lifestyle with pain and dyspnea, and does present with some deconditioning. His activity though is more limited by his dyspnea, not his strength. Counseling provided regarding outpatient versus home health. At this point, it is a taxing considerable effort for the patient to leave the home, and given his multiple appointments adding physical therapy would most likely add to his fatigue. Conclusion was to wait until cardiac evaluation, and if/pending outcome of this can move forward on home health. Patient is a [facility] patient, will go ahead and do [id number] in preparation. 6. Multiple myeloma. Patient is to start G-CSF next week, patient with limited insight into the seriousness of his illness, as well as complications secondary to his disease. They did meet with Dr. Olivares and got some other questions answered are looking forward to follow-up next week. 7. Advanced care planning. Patient does not have advanced care planning documents, is hoping to have more information regarding his prognosis. is recovering from surgery, will address with next visit to initiate conversation. [id number]. It is a taxing considerable effort for the patient leave the home secondary severe dyspnea and deconditioning as a result of his decline in functional status. Physical therapy to provide home safety eval, home exercise program, and progressive ambulation as well as equipment recommendations. Time Spent: 45 minutes with greater than 50% of this done in counseling regarding pain and symptom management, and anticipatory guidance
== END 2019-05-22 14:59 | disposition home or self-care (01) ==
LOC: PC 14:58
PROVIDERS: ATTEND Nurse Practitioner Adult Health
DX: Z51.5 Encounter for palliative care (principal); G89.3 Neoplasm related pain (acute) (chronic); C90.00 Multiple myeloma not having achieved remission; Z92.3 Personal history of irradiation; Z79.899 Other long term (current) drug therapy; Z79.891 Long term (current) use of opiate analgesic; R06.00 Dyspnea, unspecified; R60.0 Localized edema; G62.9 Polyneuropathy, unspecified; D61.818 Other pancytopenia
CPT/HCPCS: 99215

== ENCOUNTER 2019-05-27 11:15 | Outpatient (CLI) | payer MEDICARE ==
--- NOTE | 2019-05-27 15:30 | CONSULTATION NOTE ---
Palliative Care Follow Up - Referral Referring Provider: Dr. Case Time of Visit: [id number] Referral setting: [facility] [place] Referral Reason: LE edema/Dyspnea/Multiple Myeloma - Information Sources Records reviewed: Previous records reviewed History/Review of Systems obtained from: Patient, Family ( Abigail) Exam limitations: No limitations - History of Present Illness Update Brief HPI Update: This is a jarvis 79-year-old gentleman has multiple myeloma of kappa light chain type, originally diagnosed in 2017. He has been on multiple treatments most recently on thalidomide since 01/2019 with addition of Ninlaro, and monthly Xgeva. 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 Patient was seen acutely today, response to patient's progressive lower extremity edema. He had been seen on 4 with instituting furosemide 20 mg daily, was requested to do daily weights, he was 250 on 05/23 and this morning was 259. With increasing lower extremity edema. His blood pressures have remained stable of 113-126/62-68, denies any dizziness with this. He is on baseline potassium. He is going to try some compression, he has been elevating his legs, unfortunately he has though had some increase in urination, has not had any weight loss. He has not heard anything further on his cardiology referral, patient is having progressive dyspnea over several weeks, given his now lower extremity edema and weight gain, have requested he see his internal medicine doctor Dr. Lee urgently. He would like to avoid emergency room visit, we will go ahead and bump up his furosemide to 40 mg daily, and possibly further but need labs for tomorrow. Patient's original lower extremity edema last week was 1-2+ up to mid calf, he presents today with 3-4+ up to mid calf with right greater than left and taut though no fluid blisters noted. Palliative care is also been providing support regarding pain management, is currently on MS Contin 50 mg 3 times daily, his reports that his is continued to improve, he has been able to walk better not needed the wheelchair today, he has had some increase with constipation, they are titrating his MiraLAX and senna, this was reviewed again today. Social History - Living Situation Living arrangement: At home Living Situation: With spouse/s.o. Support System: Patient's Abigail, is present for exam. She is recently had hip surgery, their daughter is since returned home. Medications/Allergies - Medications Home Medications: Ambulatory Orders Medication Instructions Recorded Confirmed Finasteride [Proscar] 5 mg PO DAILY 11/19/12 05/27/19 Potassium Chloride 20 meq PO BID 11/19/12 05/27/19 Albuterol [Ventolin Hfa] 2 puffs INH Q4HR PRN 02/04/15 05/27/19 Doxazosin [Cardura] 8 mg PO DAILY 02/15/17 05/27/19 dexAMETHasone [Dexamethasone] 20 mg PO Q7D 02/06/19 05/27/19 Pomalidomide [Pomalyst] 3 mg PO DAILY 02/07/19 05/27/19 Ixazomib Citrate [Ninlaro] 4 mg PO ONCE 04/03/19 05/27/19 Cholecalciferol (Vitamin D3) 2,000 unit PO DAILY 04/11/19 05/27/19 [Vitamin D3] Multivitamin [Multivitamins] 1 tab PO DAILY 04/11/19 05/27/19 Polyethylene Glycol 3350 [Miralax] 17 gm PO DAILY 04/11/19 05/27/19 Sennosides [Senna Lax] 2 tab PO BID 04/11/19 05/27/19 oxyCODONE [Roxicodone] 5 mg PO Q4HR PRN 04/11/19 05/27/19 Gabapentin 200 mg PO ACHS MDD titrating 04/16/19 05/27/19 Morphine ER 15 mg PO TID 04/24/19 05/27/19 Furosemide 40 mg PO DAILY MDD 5 days 05/23/19 05/27/19 - Allergies Allergies/Adverse Reactions: Allergies Allergy/AdvReac Type Severity Reaction Status Date / Time No Known Drug Allergies Allergy Verified 04/30/19 09:23 Review of Systems - Constitutional Constitutional: reports: Fatigue, Weight gain (9 pounds LE edema). denies: Fever, Chills - Ears, Nose & Throat Ears, Nose & Throat: reports: Hearing loss, Hoarseness - Cardiovascular Cardiovascular: reports: Exertional dyspnea, Decr. exercise tolerance - Respiratory Respiratory: reports: SOB with exertion. denies: SOB at rest - Gastrointestinal Gastrointestinal: reports: Constipation, Good appetite. denies: Nausea - Genitourinary Genitourinary: reports: Frequency, Urgency - Musculoskeletal Musculoskeletal: reports: Stiffness, Muscle weakness, Assistive devices (cane) - Integumentary Integumentary: reports: Dryness - Neurological Neurological: reports: General weakness - Psychiatric Psychiatric: denies: Depression, Anxiety - Hematologic/Lymphatic Hematologic/Lymphatic: reports: Anemia (recent blood transfusion) - All Other Systems All Other Systems: reports: Reviewed and negative Physical Exam - Vital Signs Temperature: 36.6 C Pulse Rate: 113 Respiratory Rate: 18 Blood Pressure: 108/56 - Physical Exam General Appearance: positive: No acute distress, Alert Eyes Bilateral: positive: Normal inspection ENT: positive: No signs of dehydration Neck: positive: No JVD, Trachea midline Cardiovascular: positive: Regular rate & rhythm Respiratory: positive: Diminished in bases. negative: No respiratory distress (with activity; conversation) Abdomen: positive: Non-tender, Soft, Nml bowel sounds, Distended Skin: positive: Pallor Extremities: positive: Pedal edema (Worsening; taut) Neurologic/Psychiatric: positive: Oriented x3, Mood/affect nml, Weakness, Other (voice soft/hoarse) Palliative Care Pain: Pain improved, Location Tiredness/Fatigue: Moderate (4-6) Drowsiness/Sedation: Mild (1-3) Nausea: None Anorexia: None Dyspnea: Moderate (4-6), Comment (mild improvement last couple of days; but still distressful) Depression: None Anxiety: None Constipation: Yes, Opoid induced, Intermittent constipation Performance Status: Patient with some mild improvement of his functional status, he had been using walker last week, is using cane today. He still is very slow from sit to stand, gait quite measured, and moving quite slowly. - Palliative Care Discussion: Discussed with patient and , acute concerns regarding weight gain over week of 9 pounds, continued dyspnea. He does not have an appointment or referral completed for cardiology, recommended given in the context of making sure managed appropriately, will defer and refer to see his internal medicine doctor Dr. Lee as soon as possible, before it becomes more urgent and need for ED visit. In agreement. 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 He is currently on oral therapeutic agents, has had ongoing pancytopenia, and received 2 units of packed red blood cells last week. He presents today more acutely, with a 9 pound weight gain, his dyspnea has not increased in severity, but continues, concern regarding his worsening respiratory/cardiac status. Have requested he see his internal medicine, Dr. Lee. Patient's pain currently controlled, constipation needs to be further titrated. Palliative care to continue to provide support addressing pain and symptom management and anticipatory guidance. Recommendations/Counseling Done: Lower extremity edema, exacerbated. Patient has been instructed with poor response of his 20 mg of furosemide, to increase to 40 mg and he will have an added CMP for his labs tomorrow. He has been instructed to follow-up with his PCP, for more aggressive work-up and diuresis, patient most likely needs follow- up with CT scan as we have not looked at his chest recently. Counseling provided regarding urgency of visit, would like to avoid emergency room, but will seek assistance if needed. Patient also to obtain compression hose. 2. Pain of neoplastic origin. Patient is tolerating MS Contin 15 mg 3 times daily, has not needed much oxycodone. His observes he is doing much better with functional status, and seems less painful. Though when he coughs this is with significant discomfort. Will continue on current regimen, and titrate as indicated. 3. Constipation. Patient is taking daily MiraLAX, has been using senna 1-2 tabs, instructed as patient's bowels are soft, to increase his senna consistently 2 tabs twice daily. Reviewed titration rationale, with MiraLAX for softening and senna for frequency. 5. Generalized weakness. Patient is actually doing little bit better, suspect improved with his 2 units of packed red blood cells. Currently he is using cane, versus wheelchair and walker as of last week. We will continue to monitor, may need further follow-up as far as home health. 6. Multiple myeloma. Patient received his first GSF this week, and continues with his oral therapies. Time Spent: The minutes with greater than 50% of this done in counseling and follow-up regarding acute chronic symptoms, pain management, and anticipatory guidance with recommendation to coordinate care with PCP internal medicine.
== END 2019-05-27 11:16 | disposition home or self-care (01) ==
LOC: PC 11:15
PROVIDERS: ATTEND Nurse Practitioner Adult Health
DX: Z51.5 Encounter for palliative care (principal); C90.00 Multiple myeloma not having achieved remission; Z79.899 Other long term (current) drug therapy; Z92.3 Personal history of irradiation; R60.0 Localized edema; R63.5 Abnormal weight gain; Z79.891 Long term (current) use of opiate analgesic; K59.03 Drug induced constipation; T40.2X5D Adverse effect of other opioids, subsequent encounter; D61.818 Other pancytopenia; G89.3 Neoplasm related pain (acute) (chronic)
CPT/HCPCS: 99213

== ENCOUNTER 2019-06-18 11:09 | Outpatient (CLI) | payer MEDICARE ==
--- NOTE | 2019-06-18 15:33 | CONSULTATION NOTE ---
Palliative Care Follow Up - Referral Referring Provider: Dr. Jackie Olivares Time of Visit: [id number] Referral setting: [facility] [place] Referral Reason: Pain of neoplastic origin/dyspnea/multiple myeloma - Information Sources Records reviewed: Previous records reviewed History/Review of Systems obtained from: Patient, Family ( Abigail present) Exam limitations: No limitations - History of Present Illness Update Brief HPI Update: This is a jarvis 79-year-old gentleman who has multiple myeloma of kappa light chain type, originally diagnosed in 2017. He has been on multiple treatments most recently on pomalyst 3 mg, Ninlaro, and monthly Xgeva. He presented with rapidly progressing bone mets with a sternal tumor that required hospitalization and received radiation to his sternum and thoracic spine. Patient's most significant development, has been a further decline in his cardiac status. Patient originally presented with severe dyspnea, has received multiple transfusions related to his anemia, today his HCT is 25.5 and hemoglobin 7.9. He has been fairly incapacitated with the shortness of breath. He did start to develop lower extremity edema in the last few weeks, unresponsive to furosemide, did see his PCP on recommendation to see urgently, as he had been waiting for a cardiology referral. He was diagnosed with atrial fib with controlled ventricular rate, was started on Xarelto and metoprolol, and changed from furosemide to torsemide. Unfortunately continues to have progressive dyspnea, poor activity tolerance, and feels fairly incapacitated. His weight has continued to increase, he originally had a response to torsemide, but is now creeping back up almost a pound a day. He did see the food service order clerk, no further medication changes were made, he is going to rule out cardiac amyloidosis with further testing. He was diagnosed with congestive heart failure related to diastolic dysfunction and atrial fib, and presents today with hypotension. Both he and his are quite discouraged, they are awaiting a nuclear cardiac stress test to be done at [place] on this Monday and Monday. Patient's lower extremity is now 4+, does present with abdominal swelling, no crackles but limiting activity. Patient's pain has improved, though still has some discomfort in his lower back, his pain is more intensified in his feet with the lower extremity swelling. He has been able to titrate back off the MS Contin, though we did discuss it may be helping with some breathlessness. Social History - Living Situation Living arrangement: At home Living Situation: With spouse/s.o. Support System: She lives at home with his jarvis Abigail, she is recently had hip surgery but is recovering quite well. She is quite concerned over his ongoing decline, and worried about the future. They do have 2 daughters and a supportive community,. Medications/Allergies - Medications Home Medications: Ambulatory Orders Medication Instructions Recorded Confirmed Finasteride [Proscar] 5 mg PO DAILY 11/19/12 06/18/19 Potassium Chloride 20 meq PO BID 11/19/12 06/18/19 Albuterol [Ventolin Hfa] 2 puffs INH Q4HR PRN 02/04/15 06/18/19 Doxazosin [Cardura] 8 mg PO DAILY 02/15/17 06/18/19 dexAMETHasone [Dexamethasone] 20 mg PO Q7D 02/06/19 06/18/19 Pomalidomide [Pomalyst] 3 mg PO DAILY 02/07/19 06/18/19 Ixazomib Citrate [Ninlaro] 4 mg PO ONCE 04/03/19 06/18/19 Cholecalciferol (Vitamin D3) 2,000 unit PO DAILY 04/11/19 06/18/19 [Vitamin D3] Multivitamin [Multivitamins] 1 tab PO DAILY 04/11/19 06/18/19 Polyethylene Glycol 3350 [Miralax] 17 gm PO DAILY PRN 04/11/19 06/18/19 Sennosides [Senna Lax] 2 tab PO BID PRN 04/11/19 06/18/19 oxyCODONE [Roxicodone] 5 mg PO Q4HR PRN 04/11/19 06/18/19 Gabapentin 300 mg PO ACHS MDD titrating 04/16/19 06/18/19 Morphine ER 15 mg PO DAILY 04/24/19 06/18/19 Torsemide 40 mg PO DAILY 06/04/19 06/18/19 Metoprolol Tartrate 25 mg PO BID 06/18/19 06/21/19 Rivaroxaban [Xarelto] 15 mg PO DAILY 06/18/19 06/18/19 - Allergies Allergies/Adverse Reactions: Allergies Allergy/AdvReac Type Severity Reaction Status Date / Time No Known Drug Allergies Allergy Verified 06/04/19 11:52 Review of Systems - Constitutional Constitutional: reports: Fatigue, Poor appetite, Other (patient has had steady gain of fluid weight despite diuretics; loss of muscle mass presenting with upper extremity wasting and temporal wasting). denies: Fever, Chills - Eyes Eyes: reports: Vision loss, Corrective lenses - Ears, Nose & Throat Ears, Nose & Throat: reports: Hearing loss, Hoarseness (worsens through the day), Dry mouth - Cardiovascular Cardiovascular: reports: Irregular heart rate, Edema (worsening), Exertional dyspnea, Decr. exercise tolerance, Orthopnea - Respiratory Respiratory: reports: Orthopnea, SOB at rest (worsening; able to ambulate only a few steps before "winded"), SOB with exertion - Gastrointestinal Gastrointestinal: reports: Abdominal distention (worsening), Poor appetite, Early satiety. denies: Constipation - Genitourinary Genitourinary: reports: Frequency - Musculoskeletal Musculoskeletal: reports: Back pain, Muscle aches, Stiffness, Limited range of motion, Muscle weakness, Assistive devices - Integumentary Integumentary: reports: Dryness - Neurological Neurological: reports: General weakness - Psychiatric Psychiatric: reports: Depression, Anxiety - Hematologic/Lymphatic Hematologic/Lymphatic: reports: Anemia - All Other Systems All Other Systems: reports: Reviewed and negative Physical Exam - Vital Signs Pulse Rate: 89 Respiratory Rate: 20 Blood Pressure: 98/51 (sitting) - Physical Exam General Appearance: positive: Alert, Mild distress, Anxious Eyes Bilateral: positive: Normal inspection ENT: positive: No signs of dehydration. negative: Pharyngeal erythema Neck: positive: Trachea midline. negative: No JVD Cardiovascular: positive: Irregular Respiratory: positive: Diminished in bases. negative: No respiratory distress (increased respiratory effort with ambulation; conversation), Wheezes, Rales, Rhonchi Abdomen: positive: Non-tender, Distended, Taut (appears fluid retention) Skin: positive: Pallor, Dryness Extremities: positive: Pedal edema (severe LE edema worsening up to knees;) Neurologic/Psychiatric: positive: Oriented x3, Weakness, Depressed mood/affect, Flat affect Palliative Care - POLST Patient has POLST: No POLST Status: Full Code Pain: Pain improved, Location (pain in chest better; has weaned off MS Contin; patient with high tolerance; still with pain in back at baseline; pain worsening bilat feet with edema; gabapentin at 200 mg) Tiredness/Fatigue: Severe (7-10) Drowsiness/Sedation: Moderate (4-6) Nausea: None Anorexia: Moderate (4-6), Weight loss (signs of cachexia) Dyspnea: Severe (7-10) (patient feels is worsening) Depression: Moderate (4-6) Anxiety: Severe (7-10) Feelings of wellbeing/Perceived Quality of Life: Poor, Worsening Sleep: Sleeps poorly, Variable sleep pattern (has to sleep in recliner with orthopnea) Constipation: Yes, Opoid induced, Managed Performance Status: .Patient continues to decline with his functional status, he is limited now not by his pain but by dyspnea he is quite discouraged as he is used to being quite active, he is quite sedentary and spending most the time in the chair, he cannot sleep in the bed secondary to orthopnea. He is needing wheelchair for longer distance, is ambulatory in his home. He is feeling like he is getting more more deconditioned, and needing to use assistive devices. - Palliative Care Discussion: Both he and his are expressing concern. Regarding his ongoing decline. This is been a progressive and very frustrating journey for them, and feeling like it is still getting drawn out. They do recognize he is getting acutely worse, are hoping there is something that can be done to improve his symptoms. Results - Lab Results Lab results reviewed: Yes Impression and Recommendations - Palliative Care Impression: This is a jarvis 81-year-old gentleman with multiple myeloma of kappa light chain type, with progressive disease with advancing bone lesions. He is currently on oral therapeutic agents, ongoing pancytopenia, and presents with high symptom burden. Is recently been diagnosed with atrial fib with controlled ventricular rate, Is receiving work-up to rule out cardiac amyloidosis, and now presents with worsening congestive heart failure related to diastolic dysfunction and atrial fib. Palliative care continue provide support regarding symptom management, coordination of care, and anticipatory guidance. Recommendations/Counseling Done: 1. Dyspnea. This is multifactorial in origin, including worsening congestive heart failure, anemia with hemoglobin 7.9, deconditioning, and newly onset atrial fib. Patient currently in work-up for cardiology, are hopeful there will be some outcome with improvement of symptoms. Patient though with worsening weight, symptomology, and lower extremity edema. They are scheduled for nuclear stress test this Monday, very past provided, also counseling provided regarding further acute decline and accessing emergent evaluation. Patient continues with baseline pain and discomfort, instructed to retry MS Contin 15 mg a.m. to see if decrease the severity of his symptomology of his dyspnea. 2. Acute on chronic pain. Patient does have longstanding chronic back pain, his chest pain and scapular pain have improved, he is not needing any oxycodone, and has titrated off the MS Contin. We will go ahead and increase his gabapentin for his peripheral neuropathy, worsened with the edema. 3. Depression. Patient is quite stoic, has often not shared the severity of his symptoms, they are getting quite discouraged over his ongoing decline, the length of time as far as working on his cardiology work-up, and his poor quality of life. Counseling provided to normalize grief and anxiety with current changes. 4. Advanced care planning. Patient does present with ongoing decline, is aware of the seriousness of his illness, but now concern regarding prognosis. Both patient and feel would be helpful to have more information to be able to better complete and further advance care planning documents. ADDENDUM: 06/[address] Aguiar's office to get note regarding patient's questions and pending work up. Call to Abigail to share regarding diagnosis of cardiac amyloidosis is what they are concerned about, she could not remember the conversation, other than it had to do with his multiple myeloma affecting his heart and wanted dx. Patient has had further weight gain, today was 250; yesterday 248; 12 31-247; blood pressure today 109/49, continues with breathlessness and increased lower extremity edema and abdominal pressure. They are scheduled for test tomorrow, did recommend if patient worsens or has further weight gain to access [place] ED as cardiology would be available to him. Time Spent: 55 minutes with greater than 50% of this done in counseling regarding symptom management, anxiety and depression, coordination of care, and anticipatory guidance
== END 2019-06-18 11:10 | disposition home or self-care (01) ==
LOC: PC 11:09
PROVIDERS: ATTEND Nurse Practitioner Adult Health
DX: Z51.5 Encounter for palliative care (principal); R06.02 Shortness of breath; G89.3 Neoplasm related pain (acute) (chronic); C90.00 Multiple myeloma not having achieved remission; F32.9 Major depressive disorder, single episode, unspecified; I50.30 Unspecified diastolic (congestive) heart failure; G62.9 Polyneuropathy, unspecified; I48.91 Unspecified atrial fibrillation; D61.818 Other pancytopenia; Z79.899 Other long term (current) drug therapy; Z79.01 Long term (current) use of anticoagulants; Z92.3 Personal history of irradiation
CPT/HCPCS: 99215

== ENCOUNTER 2019-06-26 14:53 | Outpatient (CLI) | payer MEDICARE ==
--- NOTE | 2019-06-26 16:53 | CONSULTATION NOTE ---
Palliative Care Follow Up - Referral Referring Provider: Dr. Olivares Time of Visit: [id number] [place] [facility] [place] Reason: CHF/Anemia/Multiple Myeloma - Information Sources Records reviewed: Previous records reviewed History/Review of Systems obtained from: Patient, Family ( Gay) Exam limitations: Clinical condition (patient feeling poorly) - History of Present Illness Update Brief HPI Update: This is a jarvis 79-year-old gentleman who has multiple myeloma of kappa light chain type, originally diagnosed in 2017. He has been on multiple treatments most recently on poly-mist 3 mg, Ninlaro, and monthly Xgeva. Unfortunately over the last few weeks he is developed more disabling and severe dyspnea, has been fairly incapacitated as far as his activity level, and yesterday when originally we had a visit scheduled, he was feeling quite woozy. There was some discussion regarding he was not having a CBC, his is concerned as he had declined a transfusion last week when his hemoglobin was 7.9. He is feeling quite weak and worried, his feels he does improve though it "doesn't fix him" like he wants. We had agreed if it was 7.5 or less, given his last transfusion on 3, it did come back at 7.0. He is receiving 2 units today, with furosemide in between. Patient is also had worsening weight, he did see his PCP Dr. Lee yesterday, he had been recommended to go to the emergency room by myself, as he had been putting a 1 pound a day on, and his blood pressure remained quite low. This was is compromised with his . He did increase his torsemide to 40 mg twice daily, he was recently diagnosed with atrial fib with controlled ventricular rate, was started on Xarelto and metoprolol, he did see the mill machinist, with no further medication changes, and is receiving work-up to rule out cardiac amyloidosis. He was diagnosed with congestive heart failure related to his d iastolic dysfunction and atrial fib, and has been dealing with persistent hypotension. They are quite discouraged they do not have even a phone consult until 07/03. Abigail has tried to reach out to cardiology, is unable to talk to anybody specifically. Requested some assistance as far as communicating the severity of his symptoms and their distress. Patient has been resistant to follow-up the ED and/or consider hospitalization with the acuity of his symptoms fluctuating. Patient's O2 sats are 94%, he has decreased breath sounds in the right lower lobe though this is been his baseline, few fine crackles in LLL with inspiration only. Social History - Living Situation Living arrangement: At home Living Situation: With spouse/s.o. Support System: This with his Abigail, who is recently undergone hip surgery. They do have 2 daughters but they are in [place]. She is feeling somewhat overwhelmed with patient's ongoing decline, patient is currently able to ambulate short distances, but she is quite worried about the sequela of a fall or if he were to get weaker. Medications/Allergies - Medications Home Medications: Ambulatory Orders Medication Instructions Recorded Confirmed Finasteride [Proscar] 5 mg PO DAILY 11/19/12 06/26/19 Potassium Chloride 20 meq PO BID 11/19/12 06/26/19 Albuterol [Ventolin Hfa] 2 puffs INH Q4HR PRN 02/04/15 06/26/19 Doxazosin [Cardura] 8 mg PO DAILY 02/15/17 06/26/19 dexAMETHasone [Dexamethasone] 20 mg PO Q7D 02/06/19 06/26/19 Pomalidomide [Pomalyst] 3 mg PO DAILY 02/07/19 06/26/19 Ixazomib Citrate [Ninlaro] 4 mg PO ONCE 04/03/19 06/26/19 Cholecalciferol (Vitamin D3) 2,000 unit PO DAILY 04/11/19 06/26/19 [Vitamin D3] Multivitamin [Multivitamins] 1 tab PO DAILY 04/11/19 06/26/19 Sennosides [Senna Lax] 2 tab PO BID PRN 04/11/19 06/26/19 oxyCODONE [Roxicodone] 5 mg PO Q4HR PRN 04/11/19 06/26/19 polyethylene glycoL 3350 [Miralax] 17 gm PO DAILY PRN 04/11/19 06/26/19 Gabapentin 300 mg PO QPM MDD titrating 04/16/19 06/26/19 Morphine ER 15 mg PO PRN PRN 04/24/19 06/26/19 Torsemide 40 mg PO BID 06/04/19 06/26/19 Metoprolol Tartrate 25 mg PO BID 06/18/19 06/26/19 Rivaroxaban [Xarelto] 15 mg PO DAILY 06/18/19 06/26/19 - Allergies Allergies/Adverse Reactions: Allergies Allergy/AdvReac Type Severity Reaction Status Date / Time No Known Drug Allergies Allergy Verified 06/04/19 11:52 Review of Systems - Constitutional Constitutional: reports: Fatigue, Weight gain (fluid gain; wasting upper extremitities). denies: Fever, Chills - Ears, Nose & Throat Ears, Nose & Throat: reports: Hearing loss, Hearing aids, Nasal congestion, Hoarseness - Cardiovascular Cardiovascular: reports: Edema (worsening; lower extremity up to sacral area; abdomen taut), Exertional dyspnea, Decr. exercise tolerance, Orthopnea (awakened last night and felt claustrophic and had to sit in recliner) - Respiratory Respiratory: reports: SOB at rest, SOB with exertion - Gastrointestinal Gastrointestinal: reports: Abdominal distention, Bloating, Early satiety - Musculoskeletal Musculoskeletal: reports: Stiffness, Limited range of motion, Muscle weakness, Assistive devices (needing walker at home; w/c for longer distances) - Integumentary Integumentary: reports: Dryness, Other ("sore on bottom") - Neurological Neurological: reports: General weakness, Memory problems ( notes mild cognitive changes), Abnormal gait (difficulty with neuropathy and edema) - Psychiatric Psychiatric: reports: Depression, Anxiety - Hematologic/Lymphatic Hematologic/Lymphatic: reports: Anemia (hgb 7.0 and hct 22.9) - All Other Systems All Other Systems: reports: Reviewed and negative Physical Exam - Vital Signs Pulse Rate: 96 Respiratory Rate: 20 O2 Saturation: 97 (ra @ rest) Blood Pressure: 81/49 (retook 90/50 few minutes later; has been low consistently) - Physical Exam General Appearance: positive: Moderate distress, Anxious Eyes Bilateral: positive: Normal inspection ENT: positive: Other (hoarseness) Neck: positive: Trachea midline Cardiovascular: positive: Regular rate & rhythm, Tachycardia Respiratory: positive: Diminished in bases (right greater than left). negative: No respiratory distress (patient with perception of breathlessness with any activity; limiting ability to function; reports now difficulty without frequent rest periods; and frustrated), Wheezes, Rales, Rhonchi Abdomen: positive: Distended, Taut, Other (feels distention is not improving with diuretics) Skin: positive: Pressure wound (stage II decub in crevice between buttocks; moist; sacral edema;) Extremities: positive: Pedal edema (legs taut / severe up to mid thigh; painful no blistering but skin taut) Neurologic/Psychiatric: positive: Oriented x3, Weakness, Depressed mood/affect, Flat affect Palliative Care - POLST Patient has POLST: Yes POLST Status: DNR, Selective Treatment (completed POLST at visit) Pain: Pain worsening, Location (chronic low back pain; mild bilateral chest/rib pain with movement; worsening pain/numbenss in feet/legs) Tiredness/Fatigue: Severe (7-10) Drowsiness/Sedation: Moderate (4-6) (had received benadryl) Nausea: None Anorexia: Mild (1-3) Dyspnea: Severe (7-10) Depression: Moderate (4-6) Anxiety: Moderate (4-6) Feelings of wellbeing/Perceived Quality of Life: Poor, Worsening Sleep: Variable sleep pattern Constipation: Yes, Intermittent constipation Performance Status: Patient has had declining functional status since hospitalization in December, more acutely over the last few weeks, having significant weakness over the last 24 to 48 hours. This is attributed to his increased edema as well as his severe anemia. He is now needing to use a walker, he is at high risk for falls, his is quite concerned. - Palliative Care Discussion: Patient presents with worsening symptoms of heart failure, high symptom burden, ongoing functional decline. and patient quite discouraged, hoping for answers to cardiology, goal is to improve his quality of life and quality of life. Patient does recognize the seriousness of his illness. We did discuss advanced care planning today. His Abigail is his D POA, with his daughter Jolly as secondary. They do have this completed, we did though introduced and discussed the POLST today. In the context most likely he may end up calling 911, have all fallen need assistance, or go into the hospital system. We discussed what is most important to him at this point in time, he would like "a miracle", he would like to be able to breathe, and be able to be more functioning. It is very important for him to be independent, he is worried about his ongoing decline. He has been quite resistant to going into the hosp ital, or accessing ED with his progressive symptoms. This is been quite frustrating for his , she does see his rapid decline. We did discuss as far as what was acceptable in the way of interventions, we completed the POLST as DNA R/selective treatments. At this point in time he would accept hospitalization, interventions that would improve his quality and quantity of life, but does not want to be intubated or have suffering prolonged. We did discuss if we are hoping for the best for some improvement, but if he were to continue decline, what his wishes were around end of life, he would want hospice and an end-of-life experience there. If this was okay with his , his would like this as well. We did complete his goals as focusing on comfort and quality of life, treating reversible conditions, and end-of-life a comfortable respectful at home. Patient and did discuss things that were priorities at this point in time. Results - Lab Results Lab results reviewed: Yes Impression and Recommendations - Palliative Care Impression: This is an 79-year-old gentleman who has a new diagnosis of CHF, related diastolic dysfunction and atrial fib, severe anemia currently receiving blood transfusion, and underlying multiple myeloma receiving palliative treatment. Patient presents with high symptom burden, ongoing functional decline, and quite distressed with his persistent symptoms regarding his CHF. Palliative care providing support regarding advanced care planning, symptom burden, will reach out to cardiology regarding urgent concerns regarding follow up on testing. Recommendations/Counseling Done: 1. Dyspnea. This is multifactorial in origin, including worsening heart failure, anemia with a hemoglobin of 7.0, deconditioning, and new onset atrial fib. Patient did complete his testing for cardiology, they are hopeful there will be some outcome with improvement of symptoms. Patient though with progressive weight, did see PCP yesterday, did increase torsemide to 40 mg twice daily. Patient did think he lost maybe 1 or 2 pounds, unfortunately is now receiving 2 units of blood, but with IV Lasix. Patient has been encouraged if worsening, or nonresponsive to diuretics to access to ED support, patient does have significant abdominal distention concerned about patient's absorption of medications. Unfortunately with patient's hypotension, is difficult to push diuretics much more aggres sively.Patient is feeling a little better with his first unit of blood, but remains quite discouraged. Counseling provided regarding signs and symptoms and rationale for accessing emergent help, if patient worsens or does not improve.Both verbalized understanding, patient remains quite resistant, remains quite frustrated with patient's resistance 2. Stage II decub sacral. Mepilex dressing applied by oncology nurse. Counseling provided regarding pressure relief measures, will order pressure relief cushion, as well as obtain Cavilon barrier cream. Instructed to stop the Neosporin. Patient high risk for further breakdown, given his sedentary measures and presacral edema. 3. Depression. Patient is quite stoic, he often does not share the severity of his symptoms, he is able to expresses some of his concerns and worries today in our conversation around advanced care planning. Patient is hoping for the best, but concerned about his ongoing decline. Counseling provided to no rmalize her feelings of grief and concern, they do feel care is fragmented, and awaiting final input from cardiology. Agreed palliative care would reach out and try and facilitate earlier contact or appointment. 4. Advanced care planning. Counseling provided regarding patient's goals, the role and completion of POLST, as DNA R/selective treatments, patient would still accept treatment for reversible conditions, including hospitalization. Patient except antibiotics, at this point we marked no medical nutrition, but did discuss The POLST is a set of guidelines, that all decisions other than DNA R, can be weighed in the context of the situation. Time Spent: 70 minutes is greater than 50% of this done in counseling regarding goals of care, completing the POLST, coordination of care.
== END 2019-06-26 14:54 | disposition home or self-care (01) ==
LOC: PC 14:53
PROVIDERS: ATTEND Nurse Practitioner Adult Health
DX: Z51.5 Encounter for palliative care (principal); I50.9 Heart failure, unspecified; I48.91 Unspecified atrial fibrillation; D64.9 Anemia, unspecified; R06.00 Dyspnea, unspecified; L89.152 Pressure ulcer of sacral region, stage 2; I95.9 Hypotension, unspecified; C90.00 Multiple myeloma not having achieved remission; F32.9 Major depressive disorder, single episode, unspecified; Z79.899 Other long term (current) drug therapy; Z79.01 Long term (current) use of anticoagulants; Z66 Do not resuscitate
CPT/HCPCS: 99215

== ENCOUNTER 2019-06-27 11:36 | Observation (INO) | payer MEDICARE ==
--- NOTE | 2019-06-27 12:35 | ED Physician Documentation ---
History of Present Illness - Stated complaint Stated Complaint: DYSPNEA - Chief complaint Chief Complaint: Resp - History obtained from History obtained from: Patient, Family - History of Present Illness Timing: Other (ongoing for months) Pain level max: 0 Pain level now: 0 - Additonal information Additional information: 79-year-old male with a history of multiple myeloma presents to the emergency department with worsening edema of his bilateral lower extremities and abdomen. He was on Lasix, was changed to torsemide. Still having increasing edema. No difficulty ambulating. Can only take 2-3 steps at a time before he is out of breath. Worse with exertion, better with rest. Review of Systems Constitutional: denies: Fever, Chills Ears: denies: Ear pain Nose: denies: Rhinorrhea / runny nose, Congestion Throat: denies: Sore throat Respiratory: reports: Dyspnea. denies: Cough GI: denies: Nausea, Vomiting, Constipation, Diarrhea Skin: denies: Rash Musculoskeletal: denies: Neck pain, Back pain PD PAST MEDICAL HISTORY - Past Medical History Cardiovascular: Hypertension Respiratory: Asthma, Pneumonia, Other Endocrine/Autoimmune: None GI: None : Benign prostate hypertrophy HEENT: None Psych: None Musculoskeletal: Osteoarthritis Derm: Other - Past Surgical History Past Surgical History: Yes General: Colonoscopy Ortho: Hip replacement, Spine surgery HEENT: Tonsil/Adenoidectomy - Present Medications Home Medications: Ambulatory Orders Medication Instructions Recorded Confirmed Finasteride [Proscar] 5 mg PO DAILY 11/19/12 06/26/19 Potassium Chloride 20 meq PO BID 11/19/12 06/26/19 Albuterol [Ventolin Hfa] 2 puffs INH Q4HR PRN 02/04/15 06/26/19 Doxazosin [Cardura] 8 mg PO DAILY 02/15/17 06/26/19 dexAMETHasone [Dexamethasone] 20 mg PO Q7D 02/06/19 06/26/19 Pomalidomide [Pomalyst] 3 mg PO DAILY 02/07/19 06/26/19 Ixazomib Citrate [Ninlaro] 4 mg PO ONCE 04/03/19 06/26/19 Cholecalciferol (Vitamin D3) 2,000 unit PO DAILY 04/11/19 06/26/19 [Vitamin D3] Multivitamin [Multivitamins] 1 tab PO DAILY 04/11/19 06/26/19 Sennosides [Senna Lax] 2 tab PO BID PRN 04/11/19 06/26/19 oxyCODONE [Roxicodone] 5 mg PO Q4HR PRN 04/11/19 06/26/19 polyethylene glycoL 3350 [Miralax] 17 gm PO DAILY PRN 04/11/19 06/26/19 Gabapentin 300 mg PO QPM MDD titrating 04/16/19 06/26/19 Morphine ER 15 mg PO PRN PRN 04/24/19 06/26/19 Torsemide 40 mg PO BID 06/04/19 06/26/19 Metoprolol Tartrate 25 mg PO BID 06/18/19 06/26/19 Rivaroxaban [Xarelto] 15 mg PO DAILY 06/18/19 06/26/19 - Allergies Allergies/Adverse Reactions: Allergies Allergy/AdvReac Type Severity Reaction Status Date / Time No Known Drug Allergies Allergy Verified 06/27/19 11:58 - Social History Does the pt smoke?: No Smoking Status: Never smoker Does the pt drink ETOH?: Yes Does the pt have substance abuse?: No - Immunizations Immunizations are current?: Yes - POLST Patient has POLST: Yes PD ED PE NORMAL - Vitals Vital signs reviewed: Yes - General General: Alert and oriented X 3, Well developed/nourished, Other (Dyspnea, even at rest, speaking in short sentences) - HEENT HEENT: PERRL, Moist mucous membranes - Neck Neck: Supple, no meningeal sign - Cardiac Cardiac: RRR - Respiratory Respiratory: No respiratory distress, Clear bilaterally - Abdomen Abdomen: Soft, Non tender, Non distended - Derm Derm: Warm and dry - Extremities Extremities: Other (Diffuse edema from his feet to mid abdomen. Pitting throughout.) - Neuro Neuro: Alert and oriented X 3 - Psych Psych: Normal mood, Normal affect Results - Vitals Vitals: Vital Signs - 24 hr 06/27/19 06/27/19 11:43 13:07 Temperature 36 C L Heart Rate 74 80 Respiratory 24 21 Rate Blood Pressure 105/59 L 106/57 L O2 Saturation 96 96 Oxygen O2 Source [With Activity] Room air O2 Source [Without Activity] Room air O2 Source Room air - EKG (time done) 1209 Rate: Rate (enter#) (76) Rhythm: Atrial fibrillation Intervals: RBBB (incomplete) QRS: Normal Ischemia: Normal ST segments - Labs Labs: Laboratory Tests 06/27/19 06/27/19 06/27/19 13:00 13:00 13:00 WBC 1.9 L* RBC 2.55 L Hgb 8.4 L Hct 26.8 L MCV 105.1 H MCH 32.9 H MCHC 31.3 L RDW 22.1 H Plt Count 27 L* MPV 10.9 Neut # (Auto) Not Reportable Lymph # (Auto) Not Reportable Johnson # (Auto) Not Reportable Eos # (Auto) Not Reportable Baso # (Auto) Not Reportable Absolute Nucleated RBC Not Reportable Total Counted 100 Band Neuts % (Manual) 0 Reactive Lymphs % (Man) 3 Abnorm Lymph % (Manual) 0 Nucleated RBC % Not Reportable Neutrophils # (Manual) 0.2 L* Lymphocytes # (Manual) 1.1 L Monocytes # (Manual) 0.3 Eosinophils # (Manual) 0.2 Basophils # (Manual) 0.0 Nucleated RBCs 6 Differential Comment MANUAL DIFFERENTIAL Platelet Estimate DECREASED (<130,000) Platelet Morphology NORMAL APPEARANCE RBC Morph Micro Appear 2+ ANISOCYTOSIS Sodium 138 Potassium 5.3 H Chloride 101 Carbon Dioxide 26 Anion Gap 11.0 BUN 51 H Creatinine 1.9 H Estimated GFR (MDRD) 34 L Glucose 112 H Calcium 9.7 Total Bilirubin 0.9 AST 40 ALT 56 Alkaline Phosphatase 162 H B-Natriuretic Peptide 432 H Total Protein 6.4 L Albumin 3.9 Globulin 2.5 Albumin/Globulin Ratio 1.6 Lipase 29 Urine Color Urine Clarity Urine pH Ur Specific Limon Urine Protein Urine Glucose (UA) Urine Ketones Urine Occult Blood Urine Nitrite Urine Bilirubin Urine Urobilinogen Ur Leukocyte Esterase Ur Microscopic Review Urine Culture Comments 06/27/19 13:29 WBC RBC Hgb Hct MCV MCH MCHC RDW Plt Count MPV Neut # (Auto) Lymph # (Auto) Johnson # (Auto) Eos # (Auto) Baso # (Auto) Absolute Nucleated RBC Total Counted Band Neuts % (Manual) Reactive Lymphs % (Man) Abnorm Lymph % (Manual) Nucleated RBC % Neutrophils # (Manual) Lymphocytes # (Manual) Monocytes # (Manual) Eosinophils # (Manual) Basophils # (Manual) Nucleated RBCs Differential Comment Platelet Estimate Platelet Morphology RBC Morph Micro Appear Sodium Potassium Chloride Carbon Dioxide Anion Gap BUN Creatinine Estimated GFR (MDRD) Glucose Calcium Total Bilirubin AST ALT Alkaline Phosphatase B-Natriuretic Peptide Total Protein Albumin Globulin Albumin/Globulin Ratio Lipase Urine Color YELLOW Urine Clarity CLEAR Urine pH 5.0 Ur Specific Limon 1.025 Urine Protein TRACE Urine Glucose (UA) NEGATIVE Urine Ketones NEGATIVE Urine Occult Blood NEGATIVE Urine Nitrite NEGATIVE Urine Bilirubin NEGATIVE Urine Urobilinogen 0.2 (NORMAL) Ur Leukocyte Esterase NEGATIVE Ur Microscopic Review NOT INDICATED Urine Culture Comments NOT INDICATED - Rads (name of study) Chest x-ray Radiology: Prelim report reviewed, EMP read contemporaneously PD MEDICAL DECISION MAKING - ED course Complexity details: reviewed results, re-evaluated patient, considered differential, d/w patient, d/w family ED course: 79-year-old male with multiple myeloma, pancytopenia and worsening edema. Symptoms improved with 100 mg of Lasix IV. He was also given a small amount of IV fluid for his acute renal failure. He is unable to take more than 2-3 steps without significant dyspnea. He is even dyspneic just lying in bed. We will place in observation for further diuresis. Had a recent echocardiogram in March with normal left ventricular function and normal EF. Discussed the case with Dr. Duque, hospitalist who accepts This document was made in part using voice recognition software. While efforts are made to proofread this document, sound alike and grammatical errors may occur. Departure - Departure Disposition: ED Place in Observation Clinical Impression: Anasarca, Peripheral edema, Acute renal insufficiency, Hyperkalemia Condition: Stable
--- NOTE | 2019-06-27 12:42 | XRAY Report ---
Reason: dyspnea Procedure Date: 06/27/2019 Accession Number: [id number] / [id number] Procedure: XR - Chest 1 View X-Ray CPT Code: 81324 Final Report FULL RESULT: EXAM: CHEST RADIOGRAPHY EXAM DATE: 06/27/2019 12:10 PM. CLINICAL HISTORY: Dyspnea. COMPARISON: CHEST 2 VIEW 04/16/2019 12:42 PM. TECHNIQUE: 1 view. FINDINGS: Lungs/Pleura: There is focal opacity within the right lung base which may represent right middle lobe atelectasis. No other areas of opacity are seen. No evidence of large effusion. There is no pneumothorax. Mediastinum: There is borderline cardiomegaly. Other: There are remote rib fractures. IMPRESSION: 1. Focal opacity within the right lung base likely represents right middle lobe atelectasis. 2. Lungs are otherwise clear. 3. There is no pneumothorax. RADIA
[2019-06-27 13:12] LABS: BASOPHILS % (AUTO) 0.5 %; HGB - HEMOGLOBIN 8.4 g/dL (14.0-18.0); LYMPHOCYTES % (AUTO) 50.8 %; MEAN CORPUSCULAR HEMOGLOBIN 32.9 pg (27.0-31.0); MEAN CORPUSCULAR HGB CONC 31.3 g/dL (32.0-36.0); MEAN CORPUSCULAR VOLUME 105.1 fL (80.0-94.0); MEAN PLATELET VOLUME 10.9 fL (7.4-11.4); MONOCYTES % (AUTO) 23.3 %; NEUTROPHILS % (AUTO) 13.8 %; RED BLOOD COUNT 2.55 10^6/uL (4.70-6.10); RED CELL DISTRIBUTION WIDTH 22.1 % (12.0-15.0)
[2019-06-27 13:15] LABS: PLT - PLATELET COUNT 27 10^3/uL (130-450); WHITE BLOOD COUNT 1.9 x10^3/uL (4.8-10.8)
[2019-06-27 13:16] LABS: ABNORMAL LYMPHS % (MANUAL) 0 %; BAND NEUTROPHILS % (MANUAL) 0 %
[2019-06-27 13:23] LABS: ALBUMIN 3.9 g/dL (3.2-5.5); ALBUMIN/GLOBULIN RATIO 1.6 (1.0-2.2); BILIRUBIN,TOTAL 0.9 mg/dL (0.2-1.0); CALCIUM 9.7 mg/dL (8.5-10.3); CREATININE 1.9 mg/dL (0.6-1.2); TOTAL PROTEIN 6.4 g/dL (6.7-8.2)
[2019-06-27] MEDS ORDERED: FUROSEMIDE 100 MG/10 ML VIAL IVP STA (13:35)
[2019-06-27 13:36] LABS: BILIRUBIN,URINE NEGATIVE (NEGATIVE); CLARITY,URINE CLEAR (CLEAR); GLUCOSE, URINE (UA) NEGATIVE (NEGATIVE); KETONES,URINE (UA) NEGATIVE (NEGATIVE); LEUKOCYTE ESTERASE, URINE NEGATIVE (NEGATIVE); NITRITE,URINE NEGATIVE (NEGATIVE); OCCULT BLOOD,URINE NEGATIVE (NEGATIVE); PROTEIN,URINE TRACE mg/dL (NEGATIVE); UROBILINOGEN,URINE 0.2 (NORMAL) E.U./dL (NORMAL)
[2019-06-27] MEDS ORDERED: SODIUM CHLORIDE 0.9% 500 ML IV ONE (13:36)
[2019-06-27 13:51] LABS: EOSINOPHILS # (MANUAL) 0.2 10^3/uL (0-0.7); LYMPHOCYTES # (MANUAL) 1.1 10^3/uL (1.5-3.5); LYMPHOCYTES % (MANUAL) 54 %; MONOCYTES # (MANUAL) 0.3 10^3/uL (0.0-1.0)
[2019-06-27 13:52] LABS: DIFFERENTIAL COMMENT MANUAL DIFFERENTIAL; PLATELET ESTIMATE, MANUAL DECREASED (<130,000) (NORMAL); PLATELET MORPHOLOGY NORMAL APPEARANCE (NORMAL)
[2019-06-27] MEDS ORDERED: SODIUM CHLORIDE FLUSH 0.9% 10 ML SYRINGE IVP PRN (15:37)
[2019-06-27] MEDS ORDERED: LIDOCAINE 2% URO-JET 5 ML SYRINGE UR PRN (17:05)
--- NOTE | 2019-06-27 17:11 | HISTORY & PHYSICAL EXAMINATION ---
Chief Complaint - Chief Complaint Chief Complaint: Shortness of breath History of Present Illness - Admitted From Admitted From:: ED - History Obtained From Records Reviewed: yes History obtained from: patient, , old records Exam Limitations: none - History of Present Illness HPI Comment/Other: Eriberto Roberto is a pleasant 79-year old male with a past medical history of hypertension, longstanding macrocytic anemia, status post 2 units PRBC on 06/26/2019, multiple myeloma of kappa light chain type, originally diagnosed in 2017, aortic stenosis, peripheral neuropathy, hemorrhoids, psoriasis, spondylosis of the cervical spine, Stage 2 COPD, BPH, nocturia, GERD, undiagnosed ARSENIO, hearing impairment, and recent CHF 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 The patient is being followed by palliative care, Katalina Riggins. Chart review notes that the patient was recently started on CHF medications to manage his fluid status. Despite starting torsemide, the patient has continued to gain weight, have activity intolerance, loss of appetite, orthopnea, cough, hoarseness, and progressive shortness of breath. He can only take a few steps at a time without having to stop to catch his breath and has stopped driving a car within the past few weeks. He has progressed to using a walker. Chest x-ray from the ED shows borderline cardiomegaly, no pleural effusions, some atelectasis. Labs show an elevated BNP at 432, creatinine 1.9, BUN 51, GFR 34, alk phos 162, WBC 1.9, ANC 0.2, Hgb 8.4, HCt 26.8, MCV 105.1, platelets 27. On my exam the patient appears to have severe hepatic congestion with complaints of anorexia, nausea, and a firm, muffin-top abdominal girth, positive for +pericardial rub, +JVD, +S3, irregular, poor peripheral perfusion, orthopnea, accessory muscle use, few word sentences, firm abdomen, +3 pitting edema to BLEs, anasarca generalized to nipple line/chest. He will be admitted for observation to treat volume overload. History - Past Medical History Cardiovascular: reports: Congestive heart failure, Hypertension, Atrial fibrillation, Murmur, Arrhythmia Respiratory: reports: Asthma, COPD, Pneumonia, Shortness of breath, Sleep apnea (not diagnosed per ), Other Neuro: reports: Headaches, Peripheral neuropathy, Tremors Endocrine/Autoimmune: reports: None GI: reports: GERD, Hemorrhoids IMPROVEMENT SPECIALIST: reports: None : reports: Benign prostate hypertrophy, Renal insuffiency, Nocturia, Frequency HEENT: reports: Chronic vision loss, Chronic sinusitis, Chronic hearing loss Psych: reports: Depression Musculoskeletal: reports: Osteoarthritis, Fatigue, Chronic back pain Derm: reports: Other (coccyx wound, boil in mid-posterior spine) MRSA Hx?: No - Past Surgical History General: reports: Colonoscopy Ortho: reports: Hip replacement, Spine surgery HEENT: reports: Tonsil/Adenoidectomy - Family & Social History Family History: Mother: , Father: Family History Comment/Other: The patient has no siblings, mother at age 100 from cancer, father with heart disease- at age 70. Living arrangement: At home Living Situation: With spouse/s.o. Social History Notes: The patient is retired from the [employer]. - Substance History Use: Uses substance without health or social issues: NONE Abuse: Recurrent use of substance despite neg consequences: NONE Dependence: Experiences withdrawal or developed tolerances: NONE - POLST Patient has POLST: Yes POLST Status: DNR Meds/Allgy - Home Medications Home Medications: Ambulatory Orders Medication Instructions Recorded Confirmed Finasteride [Proscar] 5 mg PO DAILY 11/19/12 06/26/19 Potassium Chloride 20 meq PO BID 11/19/12 06/26/19 Albuterol [Ventolin Hfa] 2 puffs INH Q4HR PRN 02/04/15 06/26/19 Doxazosin [Cardura] 8 mg PO DAILY 02/15/17 06/26/19 dexAMETHasone [Dexamethasone] 20 mg PO Q7D 02/06/19 06/26/19 Pomalidomide [Pomalyst] 3 mg PO DAILY 02/07/19 06/26/19 Ixazomib Citrate [Ninlaro] 4 mg PO ONCE 04/03/19 06/26/19 Cholecalciferol (Vitamin D3) 2,000 unit PO DAILY 04/11/19 06/26/19 [Vitamin D3] Multivitamin [Multivitamins] 1 tab PO DAILY 04/11/19 06/26/19 Sennosides [Senna Lax] 2 tab PO BID PRN 04/11/19 06/26/19 oxyCODONE [Roxicodone] 5 mg PO Q4HR PRN 04/11/19 06/26/19 polyethylene glycoL 3350 [Miralax] 17 gm PO DAILY PRN 04/11/19 06/26/19 Gabapentin 300 mg PO QPM MDD titrating 04/16/19 06/26/19 Morphine ER 15 mg PO PRN PRN 04/24/19 06/26/19 Torsemide 40 mg PO BID 06/04/19 06/26/19 Metoprolol Tartrate 25 mg PO BID 06/18/19 06/26/19 Rivaroxaban [Xarelto] 15 mg PO DAILY 06/18/19 06/26/19 - Allergies Allergies/Adverse Reactions: Allergies Allergy/AdvReac Type Severity Reaction Status Date / Time No Known Drug Allergies Allergy Verified 06/27/19 11:58 Review of Systems - Constitutional Constitutional: reports: Fatigue, Weakness, Poor appetite, Weight gain - Eyes Eyes: reports: Vision loss - Ears, Nose & Throat Ears, Nose & Throat: reports: Hearing loss, Hearing aids, Postnasal drainage, Sore throat, Hoarseness - Cardiovascular Cariovascular: reports: Irregular heart rate, Edema, Lightheadedness, Exertional dyspnea, Decr. exercise tolerance, Orthopnea - Respiratory Respiratory: reports: Cough, Wheezing, Orthopnea, SOB at rest, SOB with exertion - Gastrointestinal Gastrointestinal: reports: Abdominal distention, Change in bowel habits, Nausea, Reflux/heartburn, Bloating, Poor appetite - Genitourinary Genitourinary: reports: Frequency, Urgency, Nocturia - Musculoskeletal Musculoskeletal: reports: Stiffness, Limited range of motion, Muscle weakness, Joint pain - Integumentary Integumentary: reports: Lesions, Dryness, Pigment changes, Nail changes, Hair changes - Neurological Neurological: reports: General weakness, Focal weakness, Headache, Dizziness, Numbness, Memory problems, Pre-existing deficit, Abnormal gait, Incoordination - Psychiatric Psychiatric: reports: Depression - Endocrine Endocrine: reports: Intolerance to cold - Hematologic/Lymphatic Hematologic/Lymphatic: reports: Anemia, Bruising, Petechiae, Lymphadenopathy, Bleeding tendencies, Recurrent infections - All Other Systems All Other Systems: reports: Reviewed and negative Prior Level of Functionality: Recently using a walker, stopped driving greater than one week ago. Denies falls. Exam - Vital Signs Reviewed Vital Signs: Yes Vital Signs: Vital Signs x48h Temp Pulse Pulse Resp BP BP Pulse Ox 06/27/19 16:42 36.3 C L 79 18 91/50 L 99 06/27/19 16:00 74 18 95/65 97 06/27/19 13:07 80 21 106/57 L 96 06/27/19 11:43 36 C L 74 24 105/59 L 96 - Physical Exam General Appearance: positive: Alert, Mild distress Eyes Bilateral: positive: No lid inflammation ENT: positive: Pharyngeal erythema, Dry mucous membranes Neck: positive: Trachea midline Respiratory: positive: Chest non-tender, Other (absent lung sounds to low bases, expiratory crackles) Cardiovascular: positive: Irregularly irregular, PMI displaced laterally, JVD present, Systolic murmur, Diastolic murmur, Gallop/S3, Decreased pulse(s) Peripheral Pulses: positive: Other (doppler) Abdomen: positive: Guarding, Hepatomegaly, Abnml bowel sounds, Other (firm) Back: negative: Nml inspection (pitting edema to most of back) Skin: positive: No rash, Warm, Cyanosis (BLE toes), Decubitus Extremities: positive: Pedal edema (+3 pitting) Neurologic/Psychiatric: positive: Oriented x3, CN's nml (2-12), Motor nml, Sensation nml, Weakness, Sensory loss Reflexes: Bicep (R): 3+, Bicep (L): 3+ Conclusion/Plan - Problem List (1) Acute exacerbation of CHF (congestive heart failure) Conclusion/Plan: Acute exacerbation of CHF (congestive heart failure) -Outpatient work up is suggesting cardiac amyloidosis -Profound fluid overload; status post 2 units PRBCs on 06/26/2019 -Last echo result in March 2019 showed: mild aortic stenosis, EF 65%, mild pulmonary HTN, and mild diastolic dysfunction -Home medications: torsemide, metoprolol by PCP Plan: Continue telemetry, IV lasix if blood pressure allows, consider Dopamine drip if midodrine does not improve blood pressure KRYSTAL (acute kidney injury) -Baseline creatinine was 1.4, now up to 1.9, GFR 34, BUN 51 -Likely renal (multiple myeloma, suspected amyloidosis), pre-renal (from acute CHF) and nephrotoxic agents with prolonged hypotension -Routine labs, diuretics as tolerated -Gandara cath for accurate I/Os Hyperkalemia -Serum K+ was 5.3, on 06/04/19 it was normal at 3.7 -Likely due to KRYSTAL, poor renal perfusion from hypotension -Consider dextrose/insulin -Routine labs, continue diuretics as tolerated Hypotension -Subacute -Likely secondary to worsening heart failure (reduced EF) -Midodrine 5 mg PO x1 was given with no effect -Blood pressure remains in the 90's systolic -Monitor vital signs, give IV lasix as tolerated -Continue midodrine 5 mg PO TID with meals -Will consider Dopamine to increased renal perfusion, ICU care Peripheral neuropathy -Gabapentin at home, now on hold, pending pharmacy to verify Neutropenia -WBC count low at 1.9, ANC 0.2 -Likely due to multiple myeloma -Routine labs, monitor mental status, signs of infection, fevers Thrombocytopenia -Platelets low at 27 -Holding Xarelto -Consider platelet transfusion if platelets are less than 10 or less than 50 AND bleeding -Routine labs, monitor for bleeding Multiple myeloma -See Dr. Olivares-Oncology and takes Pomalyst & Ninlaro at home, continued here -Patient is status post chest radiation from a prior mediastinal mass related to chronic multiple myeloma BPH (benign prostatic hyperplasia) -Patient notes that generally, he would get up 3-5 times per night prior to this exacerbation -Takes Finasteride, Cardura at home, now on hold due to nephrotoxic effects -Maintain indwelling gandara for accurate I/Os Aortic stenosis -noted as mild on March 2019 echo -Echo is pending for the AM - Lab Results Lab results reviewed: Yes Fish Bones: 06/28/19 06:00 06/28/19 06:00 - Diagnostic Imaging Results Diagnostic Imaging Results: positive: Final report reviewed Diagnostic Imaging Results Comments: EXAM: CHEST RADIOGRAPHY EXAM DATE: 06/27/2019 12:10 PM. IMPRESSION: 1. Focal opacity within the right lung base likely represents right middle lobe atelectasis. 2. Lungs are otherwise clear. 3. There is no pneumothorax. Core Measures - Anticipated LOS I expect patient to be DC'd or transferred within 96 hours.: Yes - DVT/VTE - Prophylaxis VTE/DVT Device ordered at admit?: Yes VTE/DVT Prophylaxis med ordered at admit?: Yes - Stroke - Rehab Assessment Rehab services assessment to be ordered?: Yes - AMI - Statin at Admit Aspirin Prescribed on Admit: Yes
[2019-06-27] MEDS ORDERED: MIDODRINE 2.5 MG TABLET PO SCH (18:00)
[2019-06-27] MEDS ORDERED: MIDODRINE 2.5 MG TABLET PO ONE (18:59)
[2019-06-27] MEDS: SODIUM CHLORIDE FLUSH 0.9% 10 ML SYRINGE IVP SCH (19:40)
[2019-06-27] MEDS ORDERED: MIN OIL/DIMETHICON/COCONUT OIL 92 GM TUBE TOP PRN (19:42)
[2019-06-27] MEDS ORDERED: ACETAMINOPHEN 325 MG TABLET PO PRN (22:22)
[2019-06-28] MEDS: SODIUM CHLORIDE FLUSH 0.9% 10 ML SYRINGE IVP SCH ×3 (01:17→17:49)
[2019-06-28] MEDS ORDERED: MIDODRINE 2.5 MG TABLET PO STA (03:18)
--- NOTE | 2019-06-28 04:17 | CT Report ---
Reason: abdominal distension. asess for ascites Procedure Date: 06/28/2019 Accession Number: [id number] / [id number] Procedure: CT - Abdomen/Pelvis WO CPT Code: Final Report FULL RESULT: EXAM: CT ABDOMEN AND PELVIS EXAM DATE: 06/28/2019 01:58 AM. CLINICAL HISTORY: Abdominal distension. Assess for ascites. COMPARISONS: ABD/PEL 11/17/2006 10:26 AM LUMBAR SPINE W/WO 03/15/2019 9:22 AM. TECHNIQUE: Routine helical CT imaging was performed through the abdomen and pelvis. IV contrast: None. Enteric contrast: No. Reconstructions: Coronal and sagittal. In accordance with CT protocol optimization, one or more of the following dose reduction techniques were utilized for this exam: automated exposure control, adjustment of mA and/or KV based on patient size, or use of iterative reconstructive technique. FINDINGS: Lung Bases: Moderate right and small left pleural effusions. Mild cardiomegaly. Coronary artery calcifications. Bibasilar atelectasis. Liver: No focal lesion identified on this noncontrast examination. Gallbladder/Bile Ducts: Unremarkable. Spleen: Enlarged at 17 cm. Pancreas: Normal. Adrenal Glands: Normal. Kidneys: Normal. No masses or hydronephrosis. Peritoneal Cavity/Bowel: Moderate ascites. No free air. No bowel obstruction seen. Colonic diverticulosis. No diverticulitis seen. No lymphadenopathy. Appendix is not well seen. No evidence of appendicitis. Pelvic Organs: Suboptimally seen due to streak artifact. Sanchez catheter in the urinary bladder. Vasculature: Moderate atherosclerosis. No aortic aneurysm. 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 Bones: Right hip prosthesis. Mottled appearance of the bones. Lytic focus at T12 measuring 2.7 cm. Vertebral body fracture at L3 of uncertain age. Other: None. IMPRESSION: 1. Moderate ascites. 2. Moderate right and small left pleural effusions with cardiomegaly and bibasilar atelectasis. 3. Splenomegaly measuring 17 cm. 4. Mottled appearance of the bones consistent with multiple myeloma. RADIA
[2019-06-28 06:10] LABS: EOSINOPHILS % (AUTO) 5.9 %; LYMPHOCYTES % (AUTO) 64.4 %; MEAN CORPUSCULAR HEMOGLOBIN 33.6 pg (27.0-31.0); MEAN CORPUSCULAR HGB CONC 32.3 g/dL (32.0-36.0); MEAN CORPUSCULAR VOLUME 104.2 fL (80.0-94.0); MEAN PLATELET VOLUME 12.2 fL (7.4-11.4); MONOCYTES % (AUTO) 13.9 %; NEUTROPHILS % (AUTO) 11.3 %; RED BLOOD COUNT 2.38 10^6/uL (4.70-6.10); RED CELL DISTRIBUTION WIDTH 21.3 % (12.0-15.0)
[2019-06-28 06:18] LABS: INR 1.2 (0.8-1.2); PT - PROTHROMBIN TIME 13.8 secs (9.9-12.6)
[2019-06-28 06:22] LABS: PLT - PLATELET COUNT 26 10^3/uL (130-450)
[2019-06-28 06:23] LABS: ABNORMAL LYMPHS % (MANUAL) 0 %; ALBUMIN 3.6 g/dL (3.2-5.5); ALBUMIN/GLOBULIN RATIO 1.6 (1.0-2.2); BAND NEUTROPHILS % (MANUAL) 0 %; BILIRUBIN,TOTAL 1.1 mg/dL (0.2-1.0); CALCIUM 9.6 mg/dL (8.5-10.3); CREATININE 1.7 mg/dL (0.6-1.2); MAGNESIUM 2.5 mg/dL (1.7-2.8); TOTAL PROTEIN 5.8 g/dL (6.7-8.2)
[2019-06-28 06:33] LABS: EOSINOPHILS # (MANUAL) 0.1 10^3/uL (0-0.7); LYMPHOCYTES # (MANUAL) 1.2 10^3/uL (1.5-3.5); LYMPHOCYTES % (MANUAL) 62 %; MONOCYTES # (MANUAL) 0.3 10^3/uL (0.0-1.0); MYELOCYTES % (MANUAL) 1 %
[2019-06-28 06:37] LABS: DIFFERENTIAL COMMENT MANUAL DIFFERENTIAL; PLATELET ESTIMATE, MANUAL DECREASED (<130,000) (NORMAL)
[2019-06-28] MEDS ORDERED: FUROSEMIDE 40 MG/4 ML VIAL IVP ONE (07:15)
[2019-06-28] MEDS: MIDODRINE 2.5 MG TABLET PO SCH ×3 (08:40→17:43)
--- NOTE | 2019-06-28 09:10 | PROVIDER PROGRESS NOTE ---
Subjective - Prog Note Date Prog Note Date: 06/28/19 Prog Note Time: 09:08 - Subjective Pt reports feeling: Improved Subjective: Eriberto states that his swelling is much improved and his Echo has already been completed. He denies chest pain, nausea, vomiting, confusion, dysuria, diarrhea or a new rash. He is agreeable to one more night of stay for further diuretic therapy. Current Medications - Current Medications Current Medications: Active Medications Acetaminophen (Tylenol) 650 mg PO Q4HR PRN PRN Reason: Pain or Fever > 38C (100.4F) Last Admin: 06/28/19 01:21 Dose: 650 mg Furosemide (Lasix Inj 40 Mg Vial) 40 mg IVP BIDDIURETIC MARTINEZ Last Admin: 06/28/19 13:51 Dose: 40 mg Lidocaine HCl (Xylocaine Uro-Jet 2%) 2.5 ml UR Q6H PRN PRN Reason: PAIN Last Admin: 06/27/19 18:25 Dose: 2.5 ml Lorazepam (Ativan Inj (Vial)) 0.25 mg IVP Q2H PRN PRN Reason: Anxiety Last Admin: 06/28/19 13:52 Dose: 0.25 mg Midodrine () 10 mg PO TIDWM [facility] Mineral Oil (Cavilon) 1 applic TOP PRN PRN PRN Reason: Skin Care Last Admin: 06/27/19 21:38 Dose: 1 applic Morphine Sulfate (Roxanol) 5 mg PO Q2HR PRN PRN Reason: AIR HUNGER Sodium Chloride (Normal Saline Flush 0.9%) 10 ml IVP PRN PRN PRN Reason: NEEDED PER PROVIDER ORDERS Last Admin: 06/28/19 13:52 Dose: 10 ml Sodium Chloride (Normal Saline Flush 0.9%) 10 ml IVP 0100,0900,1700 MARTINEZ Last Admin: 06/28/19 08:41 Dose: 10 ml Finasteride [Proscar] 5 mg PO DAILY 11/19/12 Potassium Chloride 20 meq PO BID 11/19/12 Albuterol [Ventolin Hfa] 2 puffs INH Q4HR PRN 02/04/15 dexAMETHasone [Dexamethasone] 20 mg PO Q7D 02/06/19 Pomalidomide [Pomalyst] 3 mg PO DAILY 02/07/19 Ixazomib Citrate [Ninlaro] 4 mg PO Q7D 04/03/19 Cholecalciferol (Vitamin D3) [Vitamin D3] 2,000 unit PO DAILY 04/11/19 Multivitamin [Multivitamins] 1 tab PO DAILY 04/11/19 polyethylene glycoL 3350 [Miralax] 17 gm PO DAILY PRN 04/11/19 Gabapentin 300 mg PO QPM 04/16/19 Morphine ER 15 mg PO DAILY PRN 04/24/19 Torsemide 40 mg PO BID 06/04/19 Metoprolol Tartrate 25 mg PO BID 06/18/19 Rivaroxaban [Xarelto] 15 mg PO QPM 06/18/19 Doxazosin Mesylate 8 mg PO DAILY 06/28/19 Objective - Vital Signs/Intake & Output Reviewed Vital Signs: Yes Vital Signs: Vital Signs x48h Temp Pulse Resp BP BP Pulse Ox 06/28/19 08:26 36.4 C L 83 18 102/53 L 95 06/28/19 06:00 105/49 L 06/28/19 05:00 36.3 C L 86 18 95/56 L 97 06/28/19 03:41 36.3 C L 87 18 99/49 L 92 Intake & Output: Intake & Output 06/25/19 06/26/19 06/27/19 06/28/19 23:59 23:59 23:59 23:59 Intake Total 1040 952 Output Total 1980 450 Balance -940 502 - Objective General Appearance: positive: No acute distress, Alert Eyes Bilateral: positive: No lid inflammation Eyes: OU Conjunctivae pale ENT: positive: Pharyngeal erythema, Dry mucous membranes Neck: positive: Stiff neck Respiratory: positive: Chest non-tender, No respiratory distress, Other (diminished) Cardiovascular: positive: JVD present, Systolic murmur, Diastolic murmur, Gallop/S3, Friction rub (pericardial,heard in aortic region,apex), Decreased pulse(s), Other (Abdominal edema is less firm, now with a soft abdomen, BLE pitting edema is also improved, OLU hose applied) Peripheral Pulses: 1+ Radial (R), 1+ Radial (L) Abdomen: positive: Non-tender, Hepatomegaly, Abnml bowel sounds, Other (soft,obese) Back: positive: Nml inspection, Other (midline-spinal abcess, not infected) Skin: positive: No rash, Warm, Dry, Pallor (Extremities) Extremities: positive: Non-tender, Pedal edema, Joint swelling, Other (Pitting edema to BLEs, +2-3 today) Neurologic/Psychiatric: positive: Oriented x3, CN's nml (2-12), Motor nml, Sensation nml, Mood/affect nml, Weakness, Sensory loss, Depressed mood/affect (flat affect, still with a good sense of humor), Other (sluggish speech at times,did not sleep well) Reflexes: Bicep (R): 2+, Bicep (L): 2+ - Lab Results Fish Bones: 06/28/19 06:00 06/28/19 06:00 Other Labs: Lab Results x24hrs 06/28/19 06/28/19 06/28/19 Range/Units 06:00 06:00 06:00 WBC (4.8-10.8) x10^3/uL RBC (4.70-6.10) 10^6/uL Hgb (14.0-18.0) g/dL Hct (42.0-52.0) % MCV (80.0-94.0) fL MCH (27.0-31.0) pg MCHC (32.0-36.0) g/dL RDW (12.0-15.0) % Plt Count (130-450) 10^3/uL MPV (7.4-11.4) fL Neut # (Auto) Lymph # (Auto) Sherman # (Auto) Eos # (Auto) Baso # (Auto) Absolute Nucleated RBC Total Counted Band Neuts % (Manual) (0 - 10) % Reactive Lymphs % (Man) % Abnorm Lymph % (Manual) % Myelocytes % ( - 0) % Nucleated RBC % Neutrophils # (Manual) (1.5-6.6) 10^3/uL Lymphocytes # (Manual) (1.5-3.5) 10^3/uL Monocytes # (Manual) (0.0-1.0) 10^3/uL Eosinophils # (Manual) (0-0.7) 10^3/uL Basophils # (Manual) (0-0.1) 10^3/uL Nucleated RBCs % Differential Comment Platelet Estimate (NORMAL) Platelet Morphology (NORMAL) RBC Morph Micro Appear (NORMAL) PT 13.8 H (9.9-12.6) secs INR 1.2 (0.8-1.2) Sodium 138 (135-145) mmol/L Potassium 4.6 (3.5-5.0) mmol/L Chloride 100 L (101-111) mmol/L Carbon Dioxide 27 (21-32) mmol/L Anion Gap 11.0 (6-13) BUN 47 H (6-20) mg/dL Creatinine 1.7 H (0.6-1.2) mg/dL Estimated GFR (MDRD) 39 L (>89) Glucose 100 (70-100) mg/dL Calcium 9.6 (8.5-10.3) mg/dL Magnesium 2.5 (1.7-2.8) mg/dL Total Bilirubin 1.1 H (0.2-1.0) mg/dL AST 33 (10-42) IU/L ALT 50 (10-60) IU/L Alkaline Phosphatase 150 H (42-121) IU/L B-Natriuretic Peptide 413 H (5-100) pg/mL Total Protein 5.8 L (6.7-8.2) g/dL Albumin 3.6 (3.2-5.5) g/dL Globulin 2.2 (2.1-4.2) g/dL Albumin/Globulin Ratio 1.6 (1.0-2.2) Lipase (22-51) U/L Urine Color Urine Clarity (CLEAR) Urine pH (5.0-7.5) PH Ur Specific Dermott (1.002-1.030) Urine Protein (NEGATIVE) mg/dL Urine Glucose (UA) (NEGATIVE) mg/dL Urine Ketones (NEGATIVE) mg/dL Urine Occult Blood (NEGATIVE) Urine Nitrite (NEGATIVE) Urine Bilirubin (NEGATIVE) Urine Urobilinogen (NORMAL) E.U./dL Ur Leukocyte Esterase (NEGATIVE) Ur Microscopic Review Urine Culture Comments 06/28/19 06/27/19 06/27/19 Range/Units 06:00 13:29 13:00 WBC 2.0 L* (4.8-10.8) x10^3/uL RBC 2.38 L (4.70-6.10) 10^6/uL Hgb 8.0 L (14.0-18.0) g/dL Hct 24.8 L (42.0-52.0) % MCV 104.2 H (80.0-94.0) fL MCH 33.6 H (27.0-31.0) pg MCHC 32.3 (32.0-36.0) g/dL RDW 21.3 H (12.0-15.0) % Plt Count 26 L* (130-450) 10^3/uL MPV 12.2 H (7.4-11.4) fL Neut # (Auto) Not Reportable Lymph # (Auto) Not Reportable Sherman # (Auto) Not Reportable Eos # (Auto) Not Reportable Baso # (Auto) Not Reportable Absolute Nucleated RBC Not Reportable Total Counted 100 Band Neuts % (Manual) 0 (0 - 10) % Reactive Lymphs % (Man) % Abnorm Lymph % (Manual) 0 % Myelocytes % 1 H ( - 0) % Nucleated RBC % Not Reportable Neutrophils # (Manual) 0.3 L* (1.5-6.6) 10^3/uL Lymphocytes # (Manual) 1.2 L (1.5-3.5) 10^3/uL Monocytes # (Manual) 0.3 (0.0-1.0) 10^3/uL Eosinophils # (Manual) 0.1 (0-0.7) 10^3/uL Basophils # (Manual) 0.0 (0-0.1) 10^3/uL Nucleated RBCs 6 % Differential Comment MANUAL DIFFERENTIAL Platelet Estimate DECREASED (<130,000) (NORMAL) Platelet Morphology (NORMAL) RBC Morph Micro Appear 1+ POLYCHROMASIA (NORMAL) PT (9.9-12.6) secs INR (0.8-1.2) Sodium (135-145) mmol/L Potassium (3.5-5.0) mmol/L Chloride (101-111) mmol/L Carbon Dioxide (21-32) mmol/L Anion Gap (6-13) BUN (6-20) mg/dL Creatinine (0.6-1.2) mg/dL Estimated GFR (MDRD) (>89) Glucose (70-100) mg/dL Calcium (8.5-10.3) mg/dL Magnesium (1.7-2.8) mg/dL Total Bilirubin (0.2-1.0) mg/dL AST (10-42) IU/L ALT (10-60) IU/L Alkaline Phosphatase (42-121) IU/L B-Natriuretic Peptide 432 H (5-100) pg/mL Total Protein (6.7-8.2) g/dL Albumin (3.2-5.5) g/dL Globulin (2.1-4.2) g/dL Albumin/Globulin Ratio (1.0-2.2) Lipase (22-51) U/L Urine Color YELLOW Urine Clarity CLEAR (CLEAR) Urine pH 5.0 (5.0-7.5) PH Ur Specific Dermott 1.025 (1.002-1.030) Urine Protein TRACE (NEGATIVE) mg/dL Urine Glucose (UA) NEGATIVE (NEGATIVE) mg/dL Urine Ketones NEGATIVE (NEGATIVE) mg/dL Urine Occult Blood NEGATIVE (NEGATIVE) Urine Nitrite NEGATIVE (NEGATIVE) Urine Bilirubin NEGATIVE (NEGATIVE) Urine Urobilinogen 0.2 (NORMAL) (NORMAL) E.U./dL Ur Leukocyte Esterase NEGATIVE (NEGATIVE) Ur Microscopic Review NOT INDICATED Urine Culture Comments NOT INDICATED 06/27/19 06/27/19 Range/Units 13:00 13:00 WBC 1.9 L* (4.8-10.8) x10^3/uL RBC 2.55 L (4.70-6.10) 10^6/uL Hgb 8.4 L (14.0-18.0) g/dL Hct 26.8 L (42.0-52.0) % MCV 105.1 H (80.0-94.0) fL MCH 32.9 H (27.0-31.0) pg MCHC 31.3 L (32.0-36.0) g/dL RDW 22.1 H (12.0-15.0) % Plt Count 27 L* (130-450) 10^3/uL MPV 10.9 (7.4-11.4) fL Neut # (Auto) Not Reportable Lymph # (Auto) Not Reportable Sherman # (Auto) Not Reportable Eos # (Auto) Not Reportable Baso # (Auto) Not Reportable Absolute Nucleated RBC Not Reportable Total Counted 100 Band Neuts % (Manual) 0 (0 - 10) % Reactive Lymphs % (Man) 3 % Abnorm Lymph % (Manual) 0 % Myelocytes % ( - 0) % Nucleated RBC % Not Reportable Neutrophils # (Manual) 0.2 L* (1.5-6.6) 10^3/uL Lymphocytes # (Manual) 1.1 L (1.5-3.5) 10^3/uL Monocytes # (Manual) 0.3 (0.0-1.0) 10^3/uL Eosinophils # (Manual) 0.2 (0-0.7) 10^3/uL Basophils # (Manual) 0.0 (0-0.1) 10^3/uL Nucleated RBCs 6 % Differential Comment MANUAL DIFFERENTIAL Platelet Estimate DECREASED (<130,000) (NORMAL) Platelet Morphology NORMAL APPEARANCE (NORMAL) RBC Morph Micro Appear 2+ ANISOCYTOSIS (NORMAL) PT (9.9-12.6) secs INR (0.8-1.2) Sodium 138 (135-145) mmol/L Potassium 5.3 H (3.5-5.0) mmol/L Chloride 101 (101-111) mmol/L Carbon Dioxide 26 (21-32) mmol/L Anion Gap 11.0 (6-13) BUN 51 H (6-20) mg/dL Creatinine 1.9 H (0.6-1.2) mg/dL Estimated GFR (MDRD) 34 L (>89) Glucose 112 H (70-100) mg/dL Calcium 9.7 (8.5-10.3) mg/dL Magnesium (1.7-2.8) mg/dL Total Bilirubin 0.9 (0.2-1.0) mg/dL AST 40 (10-42) IU/L ALT 56 (10-60) IU/L Alkaline Phosphatase 162 H (42-121) IU/L B-Natriuretic Peptide (5-100) pg/mL Total Protein 6.4 L (6.7-8.2) g/dL Albumin 3.9 (3.2-5.5) g/dL Globulin 2.5 (2.1-4.2) g/dL Albumin/Globulin Ratio 1.6 (1.0-2.2) Lipase 29 (22-51) U/L Urine Color Urine Clarity (CLEAR) Urine pH (5.0-7.5) PH Ur Specific Dermott (1.002-1.030) Urine Protein (NEGATIVE) mg/dL Urine Glucose (UA) (NEGATIVE) mg/dL Urine Ketones (NEGATIVE) mg/dL Urine Occult Blood (NEGATIVE) Urine Nitrite (NEGATIVE) Urine Bilirubin (NEGATIVE) Urine Urobilinogen (NORMAL) E.U./dL Ur Leukocyte Esterase (NEGATIVE) Ur Microscopic Review Urine Culture Comments - Diagnostic Imaging Diagnostic Imaging Results: positive: Final report reviewed Diagnostic Imaging Comments: EXAM: CT ABDOMEN AND PELVIS EXAM DATE: 06/28/2019 01:58 AM. IMPRESSION: 1. Moderate ascites. 2. Moderate right and small left pleural effusions with cardiomegaly and bibasilar atelectasis. 3. Splenomegaly measuring 17 cm. 4. Mottled appearance of the bones consistent with multiple myeloma. 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 -Ongoing fluid overload; status post 2 units PRBCs on 06/26/2019, improved today -Preliminary echo today shows similar findings as already known with aortic stenosis, EF 65%, moderate pulmonary HTN, and diastolic dysfunction -Home medications: torsemide, metoprolol by PCP -Spoke with primary Varnish Finisher who was in agreement with current treatment of high dose midodrine/IV lasix -BNP still 413, weight down 1 kg in 24 hours -Results of recent nuclear stress test was given as no suspected blocked coronaries -Continue telemetry, IV lasix if blood pressure allows, consider Dopamine drip if midodrine does not improve blood pressure KRYSTAL (acute kidney injury) -Baseline creatinine was 1.4, now1.7, GFR 39, BUN 47 -Great urine output; 1650 mL on day shift, clear colorless urine in gandara -Likely renal (multiple myeloma, suspected amyloidosis), pre-renal (from acute CHF) and nephrotoxic agents with prolonged hypotension -Routine labs, diuretics as tolerated -Gandara cath for accurate I/Os Hyperkalemia -Serum K+ now 4.6 -Likely due to KRYSTAL, poor renal perfusion from hypotension -Consider dextrose/insulin -Routine labs, continue diuretics as tolerated Hypotension -Subacute -Likely secondary to worsening heart failure (reduced EF) -Midodrine adjusted to max dosing of 10 mg PO TID with meals -Blood pressure remains in the 90-100's systolic -Monitor vital signs, continue BID lasix Peripheral neuropathy -Gabapentin at home, now on hold, resuming in the AM Neutropenia -WBC count low at 2.0, ANC 0.5 -Likely due to multiple myeloma -Routine labs, monitor mental status, signs of infection, fevers Thrombocytopenia -Platelets low at 26 -Holding Xarelto -Consider platelet transfusion if platelets are less than 10 or less than 50 AND bleeding -Routine labs, monitor for bleeding Multiple myeloma -See Dr. Olivares-Oncology and takes Pomalyst & Ninlaro at home, continued here -Patient is status post chest radiation from a prior mediastinal mass related to chronic multiple myeloma BPH (benign prostatic hyperplasia) -Patient notes that generally, he would get up 3-5 times per night prior to this exacerbation -Takes Finasteride, Cardura at home, now on hold due to nephrotoxic effects -Maintain indwelling gandara for accurate I/Os Aortic stenosis -noted as mild on March 2019 echo - appears unchanged per preliminary echo today
[2019-06-28] MEDS ORDERED: LORazepam 2 MG/ML VIAL IVP PRN (13:09)
[2019-06-28] MEDS ORDERED: MORPHINE SOL 10 MG/0.5 ML SYRINGE PO PRN ×2 (13:10→13:34)
[2019-06-28] MEDS: FUROSEMIDE 40 MG/4 ML VIAL IVP SCH (13:51)
--- NOTE | 2019-06-28 16:30 | PHARMACY PROGRESS NOTE ---
- Best Possible Medication History Admit Date and Time: 06/27/19 1537 Processed by: Pharmacy Medication History completed: Yes Patient Interview: Completed Secondary Source(s): Written medication list, Spouse/Significant other, Insurance records As the person ultimately responsible for medication therapy, providers are able to order a medication from an existing home medication list in [facility] via the "Reconcile Routine" prior to Confirmation of that medication by practice support specialist. Such practice is discouraged except when the physician, in their clinical judgment, deems that a medical need exists for a medication without regard to previous use.
[2019-06-28] MEDS ORDERED: IXAZOMIB CITRATE 4 MG PO SCH (16:45)
[2019-06-28] MEDS ORDERED: dexAMETHasone 4 MG TABLET PO SCH (17:00)
[2019-06-28] MEDS ORDERED: GABAPENTIN 100 MG CAPSULE PO SCH (22:00)
[2019-06-29 05:41] LABS: BASOPHILS % (AUTO) 0.7 %; EOSINOPHILS % (AUTO) 5.2 %; HGB - HEMOGLOBIN 8.6 g/dL (14.0-18.0); LYMPHOCYTES % (AUTO) 49.8 %; MEAN CORPUSCULAR HEMOGLOBIN 33.5 pg (27.0-31.0); MEAN CORPUSCULAR HGB CONC 32.1 g/dL (32.0-36.0); MEAN CORPUSCULAR VOLUME 104.3 fL (80.0-94.0); MEAN PLATELET VOLUME 10.9 fL (7.4-11.4); MONOCYTES % (AUTO) 23.3 %; NEUTROPHILS % (AUTO) 16.1 %; RED BLOOD COUNT 2.57 10^6/uL (4.70-6.10); RED CELL DISTRIBUTION WIDTH 21.1 % (12.0-15.0); WHITE BLOOD COUNT 2.9 x10^3/uL (4.8-10.8)
[2019-06-29 05:51] LABS: ALBUMIN 3.9 g/dL (3.2-5.5); ALBUMIN/GLOBULIN RATIO 1.6 (1.0-2.2); BILIRUBIN,TOTAL 1.4 mg/dL (0.2-1.0); CREATININE 1.4 mg/dL (0.6-1.2); MAGNESIUM 2.5 mg/dL (1.7-2.8); TOTAL PROTEIN 6.3 g/dL (6.7-8.2)
[2019-06-29 05:52] LABS: PLT - PLATELET COUNT 27 10^3/uL (130-450)
[2019-06-29 05:53] LABS: ABNORMAL LYMPHS % (MANUAL) 0 %
[2019-06-29 06:12] LABS: BAND NEUTROPHILS % (MANUAL) 1 %; EOSINOPHILS # (MANUAL) 0.1 10^3/uL (0-0.7); LYMPHOCYTES # (MANUAL) 1.9 10^3/uL (1.5-3.5); LYMPHOCYTES % (MANUAL) 66 %; MONOCYTES # (MANUAL) 0.3 10^3/uL (0.0-1.0)
[2019-06-29 06:13] LABS: DIFFERENTIAL COMMENT MANUAL DIFFERENTIAL; PLATELET ESTIMATE, MANUAL DECREASED (<130,000) (NORMAL)
[2019-06-29] MEDS: SODIUM CHLORIDE FLUSH 0.9% 10 ML SYRINGE IVP SCH ×2 (06:32→10:36)
[2019-06-29] MEDS: FUROSEMIDE 40 MG/4 ML VIAL IVP SCH (06:32)
--- NOTE | 2019-06-29 08:08 | Discharge Plan ---
Discharge Plan Problem Reviewed?: Yes Disposition: Home, Self Care Condition: Fair Prescriptions: Amiodarone [Pacerone] 200 mg PO BID #60 tablet Amiodarone HCl 400 mg PO TID #9 tablet LORazepam [Lorazepam] 0.5 mg PO Q6H PRN #20 tablet PRN Reason: Anxiety Midodrine HCl 10 mg PO TIDWM #90 tablet Spironolactone [Aldactone] 25 mg PO DAILY #30 tablet Diet: Cardiac Activity Restrictions: Activity as Tolerated Shower Restrictions: No Instruction Topics: Midodrine tablets, Amiodarone tablets, Spironolactone tablets Health Concerns: Heart failure Acute kidney injury Volume overload Anxiety Hypotension Atrial fibrillation Plan of Treatment: You were admitted for heart failure exacerbation with fluid overload. I spoke with your primary Fur Storage Clerk who agreed with your inpatient treatment of IV Lasix (furosemide), and midodrine to keep your blood pressure up. You have a heart arrhythmia called atrial fibrillation which you were put on a blood thinner (Xarelto) for. There are guidelines that show that your risk of bleeding far outweighs the risk of stroke based on your age, anemia, low platelets and other chronic illnesses. 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 STOP the potassium, STOP metoprolol. Continue the medications of Torsemide (loop diuretic), Spironolactone (to keep pulmonary pressures low), Midodrine (for low blood pressure), and Amiodarone to help regular your atrial fibrillation. Your kidneys have improved, likely due to improved heart function, which also reassures me that you will be better off at home using oral medications. Be careful when taking the lorazepam in the pill form because it can cause weakness, slight confusion and decreased breathing. See your primary care physician, or Katalina Riggins within one week as a follow up to this hospital stay. Care Goals: Prevent hospital stays, control symptoms, continue with Palliative care. Assessment: You were admitted for 2 nights to get fluid off using IV diuretics. Your heart rates continued to be very irregular and greater than 100, so you were started on Amiodarone for rate control which should continue at a loading dose of 400 mg three times per day for the next 3 days, then 200 mg twice daily thereafter. Your anxiety seemed improved with the addition of lorazepam, so you may continue low dose lorazepam at home. A gandara catheter was used for large urine output, but taken out prior to discharge and your regular prostate medications can be resumed. Follow-Up Care: Home Health - PT No Smoking: If you smoke, Please STOP! Call for help. Follow-up with: Sebastian Dias MD [Primary Care Provider] -
[2019-06-29] MEDS: AMIODARONE 200 MG TABLET PO SCH ×2 (08:36→13:00)
[2019-06-29] MEDS: MIDODRINE 2.5 MG TABLET PO SCH ×2 (08:36→11:42)
[2019-06-29 08:40] VITALS: BP 127/68
[2019-06-29] MEDS ORDERED: SPIRONOLACTONE 25 MG TABLET PO SCH (09:00)
[2019-06-29] MEDS ORDERED: FUROSEMIDE 40 MG/4 ML VIAL IVP ONE (11:13)
--- NOTE | 2019-06-29 15:38 | DISCHARGE SUMMARY ---
Discharge Summary Admit Date: 06/27/19 Discharge Date: 06/29/19 Discharging Provider: LAYNE Reed Primary Care Provider: Sebastian Dias Code Status: Do Not Attempt Resuscitation Condition at Discharge: Fair Discharge Disposition: Home Health Service - DIAGNOSES Admission Diagnoses: Acute exacerbation of CHF (congestive heart failure) Aortic stenosis Hypotension Peripheral neuropathy Pericardial friction rub Anasarca Neutropenia Thrombocytopenia KRYSTAL (acute kidney injury) Hyperkalemia Multiple myeloma BPH (benign prostatic hyperplasia) Discharge Diagnoses with Status of Each Condition: Acute right-sided congestive heart failure-Improved with less edema using IV diuretics, midodrine and amiodarone, stable Cor Pulmonale-New on this admission, increased RVSP since last echo, 49 mmHg, profound abdominal and BLE edema was improved, stable, no oxygen needs Atrial fibrillation-Loading dose of Amiodarone x3 days followed by BID dosing, for sustained uncontrolled atrial fibrillation, will need follow up. Atria bleeding risk score was 5, making the risk of bleeding outweighing the risk of stroke, also has low platelets at 27, stopped Xarelto KRYSTAL (acute kidney injury)- Creatinine returned to a baseline of 1.4 today, urine output since midnight was 1950 mL, 2900 mL yesterday, gandara removed and resumed BPH meds upon discharge Hypotension-Titrated midodrine up to 10mg TID with meals to achieve adequate blood pressure for proper kidney perfusion and to allow for diuretic therapy, to continue at home Hyperkalemia- Resolved Peripheral neuropathy-Chronic, stable Pericardial friction rub-Chronic, stable Anasarca-Chronic, stable Neutropenia-Chronic, stable Thrombocytopenia-Chronic, stable Multiple myeloma-Chronic, stable BPH (benign prostatic hyperplasia)-Chronic, stable Aortic stenosis- slightly worse since previous echo, still noted to be mild Weakness- Ongoing, ordered home health PT, using walker, activity tolerance improved since removing fluid Anxiety- Treated with IV lorazepam, transitioned to oral lorazepam upon discharge to be used sparingly - HPI History of Present Illness: Eriberto Roberto is a pleasant 79-year old male with a past medical history of hypertension, longstanding macrocytic anemia, status post 2 units PRBC on 06/26/2019, multiple myeloma of kappa light chain type, originally diagnosed in 2017, aortic stenosis, peripheral neuropathy, hemorrhoids, psoriasis, spondyl osis of the cervical spine, Stage 2 COPD, BPH, nocturia, GERD, undiagnosed ARSENIO, hearing impairment, and recent CHF 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 The patient is being followed by palliative care, Katalina Riggins. Chart review notes that the patient was recently started on CHF medications to manage his fluid status. Despite starting torsemide, the patient has continued to gain weight, have activity intolerance, loss of appetite, orthopnea, cough, hoarseness, and progressive shortness of breath. He can only take a few steps at a time without having to stop to catch his breath and has stopped driving a car within the past few weeks. He has progressed to using a walker. Chest x-ray from the ED shows borderline cardiomegaly, no pleural effusions, some atelectasis. Labs show an elevated BNP at 432, creatinine 1.9, BUN 51, GFR 34, alk phos 162, WBC 1.9, ANC 0.2, Hgb 8.4, HCt 26.8, MCV 105.1, platelets 27. On my exam the patient appears to have severe hepatic congestion with complaints of anorexia, nausea, and a firm, muffin-top abdominal girth, positive for +pericardial rub, +JVD, +S3, irregular, poor peripheral perfusion, orthopnea, accessory muscle use, few word sentences, firm abdomen, +3 pitting edema to BLEs, anasarca generalized to nipple line/chest. He will be admitted for observation to treat volume overload. - HOSPITAL COURSE Hospital Course: The patient was admitted for 2 nights to get fluid off using IV diuretics. The patient's heart rates continued to be very irregular and greater than 100, so he was started on Amiodarone for rate control which should continue at a loading dose of 400 mg three times per day for the next 3 days, then 200 mg twice daily thereafter. The patient had ongoing anxiety which improved with the addition of lorazepam, so a prescription was given to continue low dose lorazepam at home. A gandara catheter was used for large urine output, but taken out prior to dischar ge and his regular prostate medications were resumed. Prior to his departure, he agreed to a home health referral, which was ordered. The patient was medically stable and transported via private car home with his . He did not require oxygen and did not have a fall while in the hospital. He is to follow up within one week with his PCP or with Katalina Riggins-Palliative care. - ALLERGIES Allergies/Adverse Reactions: Allergies Allergy/AdvReac Type Severity Reaction Status Date / Time No Known Drug Allergies Allergy Verified 06/27/19 11:58 - MEDICATIONS Home Medications: Ambulatory Orders Medication Instructions Recorded Confirmed Finasteride [Proscar] 5 mg PO DAILY 11/19/12 06/28/19 Albuterol [Ventolin Hfa] 2 puffs INH Q4HR PRN 02/04/15 06/28/19 dexAMETHasone [Dexamethasone] 20 mg PO Q7D 02/06/19 06/28/19 Pomalidomide [Pomalyst] 3 mg PO DAILY 02/07/19 06/28/19 Ixazomib Citrate [Ninlaro] 4 mg PO Q7D 04/03/19 06/28/19 Cholecalciferol (Vitamin D3) 2,000 unit PO DAILY 04/11/19 06/26/19 [Vitamin D3] Multivitamin [Multivitamins] 1 tab PO DAILY 04/11/19 06/28/19 polyethylene glycoL 3350 [Miralax] 17 gm PO DAILY PRN 04/11/19 06/28/19 Gabapentin 300 mg PO QPM 04/16/19 06/28/19 Morphine ER 15 mg PO DAILY PRN 04/24/19 06/28/19 Torsemide 40 mg PO BID 06/04/19 06/28/19 Doxazosin Mesylate 8 mg PO DAILY 06/28/19 06/28/19 Amiodarone HCl 400 mg PO TID #9 tablet 06/29/19 Amiodarone [Pacerone] 200 mg PO BID #60 tablet 06/29/19 LORazepam [Lorazepam] 0.5 mg PO Q6H PRN #20 tablet 06/29/19 Midodrine HCl 10 mg PO TIDWM #90 tablet 06/29/19 Spironolactone [Aldactone] 25 mg PO DAILY #30 tablet 06/29/19 - PHYSICAL EXAM AT DISCHARGE General Appearance: positive: Alert, Mild distress Eyes Bilateral: positive: PERRL, No lid inflammation ENT: positive: Pharyngeal erythema, Dry mucous membranes Neck: positive: Trachea midline, Stiff neck Respiratory: positive: Chest non-tender, No respiratory distress, Other (scattered crackles-bilaterally) Cardiovascular: positive: Tachycardia, JVD present, Systolic murmur, Gallop/S3, Decreased pulse(s) Peripheral Pulses: positive: 1+ Abdomen: positive: Non-tender, Hepatomegaly, Abnml bowel sounds, Other (firm, rounded) Back: positive: Nml inspection Skin: positive: No rash, Warm, Dry, Cyanosis (BLE toes), Pallor Extremities: positive: Pedal edema, Joint swelling, Other (pitting edema- improved since admission, patient refused OLU hose) Neurologic/Psychiatric: positive: Oriented x3, CN's nml (2-12), Weakness, Sensory loss, Depressed mood/affect, Other (baseline short term memory loss) Reflexes: Bicep (R): 3+, Bicep (L): 3+ - LABS Result Diagrams: 06/29/19 05:12 06/29/19 05:12 - DIAGNOSTIC IMAGING Diagnostic Imaging Results: Final report reviewed Diagnostic Imaging Results Comments: EXAM: CHEST RADIOGRAPHY EXAM DATE: 06/27/2019 12:10 PM. IMPRESSION: 1. Focal opacity within the right lung base likely represents right middle lobe atelectasis. 2. Lungs are otherwise clear. 3. There is no pneumothorax. EXAM: CT ABDOMEN AND PELVIS EXAM DATE: 06/28/2019 01:58 AM. IMPRESSION: 1. Moderate ascites. 2. Moderate right and small left pleural effusions with cardiomegaly and bibasilar atelectasis. 3. Splenomegaly measuring 17 cm. 4. Mottled appearance of the bones consistent with multiple myeloma. - FOLLOW UP Follow Up: See your primary care physician, or Katalina Riggins within one week as a follow up to this hospital stay. - TIME SPENT Time Spent in Discharge (Minutes): 65
--- NOTE | 2019-06-29 15:54 | ADVANCE CARE PLANNING NOTE ---
Advance Care Planning - Planning Encounter Date: 06/28/19 Time: 11:00 Purpose: Confirm goals of care, code status and expected outcomes of this hospital stay. Parties in Attendance: The patient-Eriberto Roberto, his -Gay, myself-LAYNE Reed Decisional Capacity of the Patient: The patient is fully decisional and can make informed choices about his care, his , Abigail could also confirm this. - Diagnosis for Encounter (1) Acute right-sided congestive heart failure Summary: -Outpatient work up is suggested cardiac amyloidosis -Ongoing fluid overload; status post 2 units PRBCs on 06/26/2019, improved today -Preliminary echo today shows similar findings as already known with aortic stenosis, EF 65%, moderate pulmonary HTN, and diastolic dysfunction -Home medications: torsemide, metoprolol by PCP -Spoke with primary Police Detention Attendant who was in agreement with current treatment of high dose midodrine/IV lasix -BNP still 413, weight down 1 kg in 24 hours -Results of recent nuclear stress test was given as no suspected blocked coronaries -Continue telemetry, IV lasix if blood pressure allows, consider Dopamine drip if midodrine does not improve blood pressure - Encounter Subjective/Patient's Story: The patient and his explain that he was recently at [facility] and underwent a cardiac stress test and are anxious to know the results of that. They are most concerned with his recent quality of life being very limited by his recent decline in functional abilities with only being able to walk a few steps using a walker at home. The patient notes that up until just a few weeks ago, he was still driving a car. The patients main concern is his increased anxiety as it has been more frequent and is dependent on his position in the bed. He becomes breathless quite easily with minimal activity, but cannot see himself being dependent on home oxygen. He and his still agree that he has been on borrowed time and are not looking forward to the next phase, although Hospice has not taken on his case yet. The patient agrees with no invasive treatments such as a myocardial biopsy which would be the next step in diagnosing cardiac amyloidosis. He confirms his code status of DNR/DNI. Objective/Medical Story: Eriberto Roberto is a pleasant 79-year old male with a past medical history of hypertension, longstanding macrocytic anemia, status post 2 units PRBC on 06/26/2019, multiple myeloma of kappa light chain type, originally diagnosed in 2017, aortic stenosis, peripheral neuropathy, hemorrhoids, psoriasis, spondylosis of the cervical spine, Stage 2 COPD, BPH, nocturia, GERD, undiagnosed ARSENIO, hearing impairment, and recent CHF 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 The patient is being followed by palliative care, Katalina Riggins. Chart review notes that the patient was recently started on CHF medications to manage his fluid status. Despite starting torsemide, the patient has continued to gain weight, have activity intolerance, loss of appetite, orthopnea, cough, hoarseness, and progressive shortness of breath. He can only take a few steps at a time without having to stop to catch his breath and has stopped driving a car within the past few weeks. He has progressed to using a walker. Chest x-ray from the ED shows borderline cardiomegaly, no pleural effusions, some atelectasis. Labs show an elevated BNP at 432, creatinine 1.9, BUN 51, GFR 34, alk phos 162, WBC 1.9, ANC 0.2, Hgb 8.4, HCt 26.8, MCV 105.1, platelets 27. On my exam the patient appears to have severe hepatic congestion with complaints of anorexia, nausea, and a firm, muffin-top abdominal girth, positive for +pericardial rub, +JVD, +S3, irregular, poor peripheral perfusion, orthopnea, accessory muscle use, few word sentences, firm abdomen, +3 pitting edema to BLEs, anasarca generalized to nipple line/chest. He was admitted for observation to treat volume overload and is staying for 2 nights for ongoing treatment. Goals of Care: Remain at home, avoid invasive procedures, focus on comfort to manage excess fluid, maintain mobility, or improve mobility Plan: Continue IV diuretics, contact primary Police Detention Attendant to discuss recent nuclear stress test results, manage symptoms, allow rest Code Status: Do Not Attempt Resuscitation Time spent on advance care plannin
== END 2019-06-29 14:00 | disposition home health service (06) ==
LOC: ED 11:36 → MS2 15:37
PROVIDERS: ADMIT Nurse Practitioner; ATTEND Nurse Practitioner
DX: I11.0 Hypertensive heart disease with heart failure (principal); I50.811 Acute right heart failure; I27.81 Cor pulmonale (chronic); I48.91 Unspecified atrial fibrillation; N17.9 Acute kidney failure, unspecified; I95.9 Hypotension, unspecified; E87.5 Hyperkalemia; G62.9 Polyneuropathy, unspecified; C90.00 Multiple myeloma not having achieved remission; J44.9 Chronic obstructive pulmonary disease, unspecified; R01.2 Other cardiac sounds; D61.818 Other pancytopenia; I27.29 Other secondary pulmonary hypertension; G47.33 Obstructive sleep apnea (adult) (pediatric); N40.1 Benign prostatic hyperplasia with lower urinary tract symptoms; R35.1 Nocturia; R35.0 Frequency of micturition; R53.1 Weakness; F41.9 Anxiety disorder, unspecified; F32.9 Major depressive disorder, single episode, unspecified; I35.0 Nonrheumatic aortic (valve) stenosis; M47.812 Spondylosis without myelopathy or radiculopathy, cervical region; K21.9 Gastro-esophageal reflux disease without esophagitis; J32.9 Chronic sinusitis, unspecified; Z74.09 Other reduced mobility; M19.90 Unspecified osteoarthritis, unspecified site; R26.9 Unspecified abnormalities of gait and mobility; R41.3 Other amnesia; L40.9 Psoriasis, unspecified; K64.9 Unspecified hemorrhoids; H91.90 Unspecified hearing loss, unspecified ear; H54.7 Unspecified visual loss; G89.29 Other chronic pain; Z66 Do not resuscitate; Z79.51 Long term (current) use of inhaled steroids; Z79.52 Long term (current) use of systemic steroids; Z79.891 Long term (current) use of opiate analgesic; Z79.01 Long term (current) use of anticoagulants; Z79.899 Other long term (current) drug therapy; Z92.3 Personal history of irradiation; Z96.649 Presence of unspecified artificial hip joint; Z87.01 Personal history of pneumonia (recurrent)
CPT/HCPCS: 36415; 71045; 74176; 80053; 81003; 83690; 83735; 83880; 85025; 85610; 93005; 93306; 96361; 96374; 96375; 96376; 99284; 99285; A6250; A9270; G0378; J1940; J2060; J8540; 81001; 87086

== ENCOUNTER 2019-07-09 11:31 | Outpatient (CLI) | payer MEDICARE ==
--- NOTE | 2019-07-09 17:42 | CONSULTATION NOTE ---
Palliative Care Follow Up - Referral Referring Provider: Dr. 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 Currently on hold, because of worsening anemia. Patient has had actually more complexity in the context of his decline in functional status and health, related to his worsening and new diagnosis of CHF, newly diagnosed atrial fib, and was recently hospitalized 06/27-06/29 at [facility]. He presented with KRYSTAL, hyperkalemia, acute exacerbation of his CHF, new diagnosis of cor pulmonale, hypotension with new prescription for Midodrin, and mild to worsening aortic stenosis. Patient reports worsening weakness, his hemoglobin is 7.2 today, down from 8.0 on 07/02, he had received a blood transfusion on 8 of 2 units. The hope unfortunately his platelets were also down, to 13,000, though his white count had improved to 4.4 and WBC 0.9. Patient does understand the seriousness of his illness, that is not a curable disease, he is expressing fatigue over his worsening functional status, poor activity tolerance, and loss of independence. His PCP, had broached the topic of hospice, patient meeting with palliative care to further define goals of care. Patient does present with high symptom burden, is severe dyspnea, he is awakening with increased panic and shortness of breath, describes symptoms of orthopnea. He does have severe lower extremity weakness, 3-4+ pitting edema up to his mid thighs, though this has improved with his hospitalization and diuresis, he reports he did lose 10 pounds. He has had multiple medication changes, but has not felt any improvement in his overall status. Patient reports recurrent pain, more intense on his right upper chest area, recurrent lower back pain acute on chronic, and increased discomfort with his peripheral neuropathy with the worsening edema. Social History - Living Situation Living arrangement: At home Living Situation: With spouse/s.o. Support System: This with his jarvis Abigail, she is concerned about his ongoing decline, they did start home health physical therapy yesterday. They do have 2 daughters but they are located in [place]. They are both feeling overwhelmed with his continuing loss of independence, and multiple health problems. Medications/Allergies - Medications Home Medications: Ambulatory Orders Medication Instructions Recorded Confirmed Finasteride [Proscar] 5 mg PO DAILY 11/19/12 07/10/19 Albuterol [Ventolin Hfa] 2 puffs INH Q4HR PRN 02/04/15 07/10/19 dexAMETHasone [Dexamethasone] 20 mg PO Q7D 02/06/19 07/10/19 Cholecalciferol (Vitamin D3) 2,000 unit PO DAILY 04/11/19 07/10/19 [Vitamin D3] Multivitamin [Multivitamins] 1 tab PO DAILY 04/11/19 07/10/19 polyethylene glycoL 3350 [Miralax] 17 gm PO DAILY PRN 04/11/19 07/10/19 Gabapentin 300 mg PO QPM 04/16/19 07/10/19 Morphine ER 15 mg PO DAILY 04/24/19 07/10/19 Torsemide 40 mg PO BID 06/04/19 07/10/19 Doxazosin Mesylate 8 mg PO DAILY 06/28/19 07/10/19 Amiodarone [Pacerone] 200 mg PO BID #60 tablet 06/29/19 07/10/19 LORazepam [Lorazepam] 0.5 mg PO Q6H PRN #20 tablet 06/29/19 07/10/19 Midodrine HCl 10 mg PO TIDWM #90 tablet 06/29/19 07/10/19 Spironolactone [Aldactone] 25 mg PO DAILY #30 tablet 06/29/19 07/10/19 Morphine Sulfate [Morphine Sulf 5 mg PO .Q2 PRN 07/10/19 07/10/19 Oral (Roxanol)] Rivaroxaban [Xarelto] 15 mg PO DAILY 07/10/19 07/10/19 - Allergies Allergies/Adverse Reactions: Allergies Allergy/AdvReac Type Severity Reaction Status Date / Time No Known Drug Allergies Allergy Verified 07/02/19 11:42 Review of Systems - Constitutional Constitutional: reports: Fatigue, Weakness, Weight loss (251), Other (patient with temporal wasting; upper extremity;). denies: Fever, Chills - Ears, Nose & Throat Ears, Nose & Throat: reports: Hearing loss, Hearing aids, Hoarseness, Dry mouth - Cardiovascular Cardiovascular: reports: Edema (mild improvement but still severe), Exertional dyspnea, Decr. exercise tolerance, Orthopnea - Respiratory Respiratory: reports: Snoring ( reports odd breathing noises/not "snoring"), Orthopnea, SOB at rest, SOB with exertion, Other (awakens with "panic" attacks and get get air) - Gastrointestinal Gastrointestinal: reports: Abdominal distention, Constipation, Bloating, Poor appetite, Early satiety - Genitourinary Genitourinary: reports: Frequency - Musculoskeletal Musculoskeletal: reports: Back pain, Stiffness, Limited range of motion, Muscle weakness, Joint pain (bilateral knee pain;), Assistive devices (walker at home;), Transfer issues (needs wheelchair for longer distances) - Integumentary Integumentary: reports: Dryness, Other (new petechaie/blisters) - Neurological Neurological: reports: General weakness - Psychiatric Psychiatric: reports: Depression, Anxiety - Hematologic/Lymphatic Hematologic/Lymphatic: reports: Anemia (7.2; to receive one unit on ), Bruising, Petechiae - All Other Systems All Other Systems: reports: Reviewed and negative Physical Exam - Vital Signs Temperature: 98.1 C Pulse Rate: 109 Respiratory Rate: 20 O2 Saturation: 95 (ra @ rest) Blood Pressure: 105/57 - Physical Exam General Appearance: positive: Mild distress, Anxious Eyes Bilateral: positive: Normal inspection, No scleral icterus ENT: positive: No signs of dehydration Neck: positive: No JVD, Trachea midline Cardiovascular: positive: Irregular, Other (severe murmur) Respiratory: positive: Diminished in bases. negative: Wheezes, Rales, Rhonchi Abdomen: positive: Soft, Distended Skin: positive: Pallor, Pressure wound ( reports improved) Extremities: positive: Pedal edema (4+ up into thighs) Neurologic/Psychiatric: positive: Oriented x3, Weakness, Depressed mood/affect, Flat affect Palliative Care - POLST Patient has POLST: Yes POLST Status: DNR, Selective Treatment Pain: Pain worsening, Location (right upper chest; lower back; bilat peripheral neuropathy) Tiredness/Fatigue: Severe (7-10) Drowsiness/Sedation: Severe (7-10) Nausea: None Anorexia: Mild (1-3) Dyspnea: Severe (7-10) Depression: Mild (1-3) Anxiety: Severe (7-10) Feelings of wellbeing/Perceived Quality of Life: Poor, Worsening Sleep: Other (awakens with severe panic/SOB) Constipation: Yes, Opoid induced, Intermittent constipation (patient forgets Miralax) Performance Status: Patient with worsening functional status, is mostly sedentary. Is having more difficulty getting from sitting to standing, no longer can sit or sleep in recliner as it is too difficult to get up. Patient is needing more assistance with ADLs, can walk short distances with his walker, needs wheelchair for going to appointments and extended ambulation. Physical therapy just started, is going to work with equipment and safety. - Palliative Care Discussion: Both patient and quite discouraged, unfortunately their understanding was they were no longer going to be on the oral medications to treat his multiple myeloma. In follow-up with Dr. Olivares, they are currently on hold, awaiting to see what the impact is on his pancytopenia. She has made a referral to [facility], patient is quite discouraged and at this point is not planning on following through. Recommended to make appointment, and check closer to the time if he feels like he can manage the trip. We did discuss in the context of multiple myeloma, it is a disease of management, and there are multiple treatments available. His more complicating factor actually his been his CHF, KRYSTAL, and worsening dyspnea. They have been working on balancing his medications, with his kidney function. We discussed the continuum of care, including palliative versus hospice. For hospice prognosis needs to be less than 6 months, given his functional decline, multiple comorbidities, if no further treatment and no further hospitalization most likely would meet this, but reinforce goals were for comfort only and no further treatment. It is adding to the complexity regarding the question about weighing benefits and balance of blood transfusions, at this point in time this is still acceptable to patient. Patient at this point in time would like to continue with the supportive care approach, is accepting of blood transfusions, is hoping for recovery and needing transfusions less. He will continue to treat for CHF, balancing his current regimen, at this point does not have a follow-up with the oil furnace installer, was told would be managed by a clinic nurse, has not received any follow-up calls. He has been seeing his PCP Dr. Lee, with support and now with new medications from hospital stay and is doing better with his blood pressure. Discussed what would not be quality of life, the threshold for transitioning to focus of comfort, it would be in his mind more dependence, being a burden on his , and unable to manage as he does value his independence. He does have feelings of grief and loss given his functional decline, and worsening quality of life, is somewhat pragmatic, but is hoping for improvement. Results - Lab Results Lab results reviewed: Yes Lab and Imaging Results: Ordered CMP given oil furnace installer request, though no orders sent. Sodium 137, potassium 3.6, chloride 90, BUN 18, creatinine 1.5, GFR 45, these are not worse and consistent from his hospital numbers. Impression and Recommendations - Palliative Care Impression: This is an 79-year-old gentleman who was recently hospitalized for acute exacerbation of his new diagnosis of CHF, related diastolic dysfunction and atrial fib, now presents with recurrent severe anemia, thrombocytopenia, and his current oncology treatment on hold for his multiple myeloma. Patient continues to have functional decline, high symptom burden, is worried about his continuing decline of quality of life. Palliative care providing support regarding pain and symptom management and anticipatory guidance. Recommendations/Counseling Done: 1. Pancytopenia. Patient presents with anemia, counseling provided regarding expectations around blood transfusions. Hemoglobin at 7.2, patient does not feel like "they help", we did discuss though in the setting of his cardiac status it is important to continue to support himself to decrease a burden on his heart. Patient presents with new thrombocytopenia, counseling provided regarding signs and symptoms of bleeding, he does have petechiae, call to Dr. Lee regarding whether to continue Xarelto or not, recommends continue given his severity of his atrial fib and high risk for stroke. Patient and verbalized understanding regarding signs and symptoms to access to ED support. 2. Orthopnea. Counseling provided recommended hospital bed, they are using pillows to elevate head. He does wake up with severe shortness of breath and panic, he can no longer sleep in the recliner as he cannot get out of it secondary to his decline in strength. We also discussed possibly renting or accessing a lift chair, so patient could be more comfortable have legs up and better breathing. Patient provided morphine 5 mg concentrated liquid every 2 hours as needed, instructions on how to use when awakens, or to use preemptively for activity. Patient is on morphine 15 mg daily, is not opioid kike. 3. Stage II decub sacral. Did not examine, patient reports pain is somewhat improved, though still has not obtained pressure relief cushion. reports is healed, currently now is just discomfort with pressure. 4. CHF. Patient did not get his CMP, facilitated another blood draw, follow-up with regarding numbers remain consistent. Patient is on new regimen, awaiting further support from cardiology/clinic. Will access PCP if worsening status, is instructed to continue with daily weights. 5. Advance care planning. Reviewed the continuum of care, palliative versus hospice, patient's goals of care. Patient does have POLST with DNR/DNI and selective treatments. Patient though quality of life is diminishing, feels currently would still want to pursue supportive care treatments. Though he is somewhat reluctant to follow-up with [facility], encouraged to continue with referral process with the hopes he will be feeling better off of his treatment and his CHF better treated. Time Spent: 60 minutes with greater than 50% of this done in counseling regarding goals of care, coordination of care regarding blood draws, follow-up with PCP, oncology.
== END 2019-07-09 11:32 | disposition home or self-care (01) ==
LOC: PC 11:31
PROVIDERS: ATTEND Nurse Practitioner Adult Health
DX: Z51.5 Encounter for palliative care (principal); C90.00 Multiple myeloma not having achieved remission; G89.3 Neoplasm related pain (acute) (chronic); R53.0 Neoplastic (malignant) related fatigue; D61.818 Other pancytopenia; R53.1 Weakness; R23.3 Spontaneous ecchymoses; R06.01 Orthopnea; G62.9 Polyneuropathy, unspecified; L89.152 Pressure ulcer of sacral region, stage 2; I50.9 Heart failure, unspecified; I48.91 Unspecified atrial fibrillation; Z79.899 Other long term (current) drug therapy; Z79.01 Long term (current) use of anticoagulants; Z79.891 Long term (current) use of opiate analgesic; Z66 Do not resuscitate
CPT/HCPCS: 99215

== ENCOUNTER 2019-07-09 13:03 | Outpatient (CLI) | payer MEDICARE | END 2019-07-09 13:04 | disposition home or self-care (01) | LOC: LAB 13:03 | PROVIDERS: ATTEND Nurse Practitioner Adult Health | DX: Z53.9 Procedure and treatment not carried out, unspecified reason (principal) ==

== ENCOUNTER 2019-07-17 12:11 | Outpatient (CLI) | payer MEDICARE ==
--- NOTE | 2019-07-17 13:13 | CONSULTATION NOTE ---
Palliative Care Follow Up - Referral Referring Provider: Dr. Jackie Olivares Time of Visit: 8815-8506 [place] [facility] [place] Reason: Anemia/MM/CHF/Goals of care - Information Sources Records reviewed: Previous records reviewed History/Review of Systems obtained from: Patient, Family ( Gay at bedside) Exam limitations: No limitations - History of Present Illness Update Brief HPI Update: This is a jarvis 79-year-old gentleman with multiple myeloma of kappa light chain type, unfortunately with his worsening anemia, as well as noted progression of disease, his pomalidomide and Ninlaro are currently on hold. Patient has had continuing decline in his counts, is currently receiving blood for hemoglobin of 6.1, with concern for platelets at 13,000. Dr. Dias did stop the Xarelto on . Patient has had petechiae, has a complication of his increasing CHF, he does have some blisters and small hematomas. He denies any signs or symptoms of active bleeding, reports no black tarry stools, urine is normal, but his fatigue is quite overwhelming, and his functional status has taken as steep decline. He does have significant breathlessness with any activity, also activity induces chest pain, and has been using the morphine 5 mg with some relief, but after the fact. He has been able to stay in bed a bit longer, but still needs to get up with his orthopnea and cannot sleep the whole night on his pillows, they had declined a hospital bed sooner. He presents since today quite discouraged, it was significantly difficult for them to get him up into the clinic. He is somewhat skeptical that this will help with any of his symptoms, as he has not had significant relief previously. We did review that this is the lowest he has been as far as his anemia. His lower extremity edema has crept up to mid thigh area, his legs are taut, with small water blisters. His lungs are diminished in the bases, but without crackles, and his O2 sats are 99% at rest. His weight is at 254, this does not represent an significant weight gain, though I suspect his baseline weight is closer to 248. His blood pressure is low, 88/48, with a pulse of 104 and concerns for further hypotension and kidney function, has precluded ability to push diuretics in home setting. The plan is for him to receive 1 unit today every 3 hours, another tomorrow, recheck his labs and possibly third unit on Monday. Patient is feeling more comfortable, higher symptom burden, and is struggling with his ongoing decline. Palliative care meeting with patient to revisit goals of care conversation and provide support. Social History - Living Situation Living arrangement: At home Living Situation: With spouse/s.o. Support System: Patient lives at home with his Abigail, who recently had hip surgery. His needing more assistance, he is worried about being a burden on her. They do have 2 daughters in [place], who are quite concerned. Medications/Allergies - Medications Home Medications: Ambulatory Orders Medication Instructions Recorded Confirmed Albuterol 2 puffs INH Q4H PRN 07/16/19 07/17/19 Amiodarone [Pacerone] 200 mg PO BID 07/16/19 07/17/19 Cholecalciferol (Vitamin D3) 2,000 unit PO DAILY 07/16/19 07/17/19 [Vitamin D3] Doxazosin Mesylate [Cardura Xl] 8 mg PO DAILY 07/16/19 07/17/19 Finasteride 5 mg PO DAILY 07/16/19 07/17/19 Gabapentin 300 mg PO DAILY 07/16/19 07/17/19 Ixazomib Citrate [Ninlaro] 4 mg PO Q7D MDD ON HOLD 07/16/19 07/17/19 LORazepam [Ativan] 0.5 mg PO Q6HR PRN 07/16/19 07/17/19 Midodrine HCl 10 mg PO TID 07/16/19 07/17/19 Morphine ER 15 mg PO DAILY PRN 07/16/19 07/17/19 Multivitamin [Multivitamins] 1 cap PO DAILY 07/16/19 07/17/19 Polyethylene Glycol 3350 [Clearlax] 17 mg PO BID 07/16/19 07/17/19 Pomalidomide [Pomalyst] 3 mg PO PRN PRN MDD ON HOLD 07/16/19 07/17/19 Spironolactone 25 mg PO DAILY 07/16/19 07/17/19 Torsemide 40 mg PO BID 07/16/19 07/17/19 dexAMETHasone [Dexamethasone] 20 mg PO Q7D 07/16/19 07/17/19 Morphine Sulfate [Morphine Sulf 5 mg PO .Q2 PRN 07/17/19 07/17/19 Oral (Roxanol)] - Allergies Allergies/Adverse Reactions: Allergies Allergy/AdvReac Type Severity Reaction Status Date / Time No Known Drug Allergies Allergy Verified 07/02/19 11:42 Review of Systems - Constitutional Constitutional: reports: Fatigue (worsening), Weakness, Poor appetite, Weight gain (254; fluid weight with muscle wasting and temporal wasting;) - Ears, Nose & Throat Ears, Nose & Throat: reports: Hearing loss, Hearing aids, Dry mouth - Cardiovascular Cardiovascular: reports: Irregular heart rate, Chest pain (with activity), Edema (worsening up to mid thigh), Exertional dyspnea, Decr. exercise tolerance, Orthopnea - Respiratory Respiratory: reports: Orthopnea, SOB at rest, SOB with exertion - Gastrointestinal Gastrointestinal: reports: Constipation, Bloating, Poor appetite, Early satiety - Genitourinary Genitourinary: reports: Frequency - Musculoskeletal Musculoskeletal: reports: Stiffness, Muscle weakness, Assistive devices (walker for few steps), Transfer issues (needing wheelchair for any distance). denies: Back pain - Integumentary Integumentary: reports: Dryness, Other (petechaie; water blisters on legs) - Neurological Neurological: reports: General weakness, Numbness, Abnormal gait - Psychiatric Psychiatric: reports: Depression, Anxiety (with awakening with breathlessness) - Hematologic/Lymphatic Hematologic/Lymphatic: reports: Anemia (6.1), Bruising, Petechiae - All Other Systems All Other Systems: reports: Reviewed and negative Physical Exam - Vital Signs Temperature: 36.7 C Pulse Rate: 104 Respiratory Rate: 18 O2 Saturation: 99 (ra @ rest) Blood Pressure: 88/48 (had not taken midirone yet) - Physical Exam General Appearance: positive: Mild distress Eyes Bilateral: positive: Normal inspection ENT: positive: No signs of dehydration Neck: positive: Trachea midline Cardiovascular: positive: Irregular, Tachycardia Respiratory: positive: Diminished in bases. negative: No respiratory distress (with any activity increase in respiratory rate), Wheezes, Rales, Rhonchi Abdomen: positive: Nml bowel sounds, Distended, Taut Skin: positive: Pallor, Dryness, Pressure wound ( reports fluctuates but not deteriorating decub on coccyx), Other (blisters on LE, petechaie UE/and bleeding into blister) Extremities: positive: Pedal edema (4+ up to mid thigh) Neurologic/Psychiatric: positive: Oriented x3, Weakness, Depressed mood/affect Palliative Care - POLST Patient has POLST: Yes POLST Status: DNR, Selective Treatment Pain: Comment (back pain currently controlled with MS Contin 15 mg AM; LE pain with edema worsening; intermittent chest pain with activity last few days resolved with rest and IR MS 5 mg) Tiredness/Fatigue: Severe (7-10) Drowsiness/Sedation: Moderate (4-6) Nausea: None Anorexia: Severe (7-10), Weight loss (not eating well; early satiety) Dyspnea: Severe (7-10) Depression: Moderate (4-6) Anxiety: Moderate (4-6) Feelings of wellbeing/Perceived Quality of Life: Poor, Worsening Sleep: Sleep improved, Variable sleep pattern (awakens with "panic attacks"; respiratory effort/orthpnea) Constipation: Yes, Opoid induced, Unmanaged Performance Status: Patient only able to ambulate few feet in his home, back and forth the bathroom to chair and to bed. This is with pacing activity. is concerned about patient's ongoing functional decline, and ability to manage as well as his fall risk. - Palliative Care Discussion: Unfortunately patient has continued to decline, both functionally when with increasing symptom burden. His hemoglobin has dropped even further, patient's goals last week were focused on continue with supportive care, for as long as possible and in the context of quality of life. He is feeling quite discouraged, his is worried about his ongoing failure to thrive, perceives him as suffering, and knows he is discouraged. Patient at this point is made the decision given his sharp decline, not to to pursue further referral from [facility], though they have not been assigned an appointment yet. Did consult with his PCP regarding his CHF and diuretics, he feels it would be more than appropriate to transition to hospice and supportive of this as well. Patient and with appropriate questions, agreed would reach out to his oncologist as well, counseling provided regarding the continuum of care and support from hospice, given his current status most likely would happen when he can no longer get in for transfusions or if he were to choose to focus on comfort. Patient is somewhat pragmatic, does report he is lived a good life, he is not fearful. is appropriately tearful, worried about patient's quality of life and level of suffering. Results - Lab Results Lab results reviewed: Yes Impression and Recommendations - Palliative Care Impression: This is a jarvis 79-year-old gentleman who now presents with severe anemia and thrombocytopenia and hemoglobin of 6.1 and platelets 13,000. Patient with severe atrial fib, now presents with chest pain with activity most likely related to his worsening anemia, is currently off Xarelto with increased risk of stroke. His CHF is worsening, as far as worsening lower extremity edema, he is hypotensive and with worsening kidney function, limiting ability to titrate diuretic. His multiple morbidities are unfortunately creating an increasingly complex situation, with ongoing decline, and high symptom burden. Palliative care providing support for symptom management and anticipatory guidance, as well as continues support goals of care conversation. Recommendations/Counseling Done: 1. CHF. Patient was to report back to Dr. Lee today regarding his weights and worsening symptoms, currently his diuretics are holding at torsemide 40 mg twice daily given his kidney function and hypotension. In agreement I would consult with Dr. Lee, I did call discuss his worsening status, current hypotensive numbers most likely multifactorial including his anemia. He is suspect if any diuretics would be of assistance at this point in time, does not want to push his hypotension related to fall risk and safety at home in the setting of his thrombocytopenia. Did provide parameters though unlikely patient to meet, if patient gains over his to 50 for 1 to 2 pounds, and his blood pressure is greater than 100/60 can take an extra dose of torsemide. This was relayed and written out for patient and . We also reviewed if patient has worsening or significant distress, still has the option of calling 911 or ED visit for gentle diuresis and support. This was effective before, unfortunately most likely will continue to recur. 2. Pancytopenia. Patient continues to present with worsening anemia, despite his Pomalyst and Ninlaro being on hold. Counseling provided regarding thrombocytopenia, and precautions. Particular around fall risk and sequela. Patient has been seen by home health PT, does have a walker, reiterated need to ask for assistance with transfers and if feeling weak. Patient to receive transfusion today and tomorrow, possibly Monday. 3. Dyspnea. This is multifactorial in origin. Patient actually has gotten some relief with the intermittent morphine, particularly in the context of his chest pain. Counseling provided regarding a preemptive dosing before up with any activity, to assist with chest pain and dyspnea for better activity tolerance. 4. Constipation. This is most likely as result of increased opioid use, patient does get some cramping with senna, instructed as first step to increase his MiraLAX to twice daily, and add senna if no BM in 48 hours. 5. Advanced care planning. Patient does present with the complex constellation of comorbidities and worsening symptoms. Patient is getting tired, he has been hopeful that at least would have some results and support from ongoing transfusions. He has declined further consultation at [facility], though does have referral in. Reviewed patient's goals of care, patient's functional status is going down and symptom burden going up. Counseling provided regarding the continuum of care including transition to hospice. Time Spent: 60 minutes with greater than 50% of this done in counseling regarding symptom management, anticipatory guidance, and coordination of care with oncology staff and PCP.
== END 2019-07-17 12:12 | disposition home or self-care (01) ==
LOC: PC 12:11
PROVIDERS: ATTEND Nurse Practitioner Adult Health
DX: Z51.5 Encounter for palliative care (principal); D61.818 Other pancytopenia; I50.9 Heart failure, unspecified; R06.00 Dyspnea, unspecified; K59.00 Constipation, unspecified; C90.00 Multiple myeloma not having achieved remission; Z79.899 Other long term (current) drug therapy; Z79.891 Long term (current) use of opiate analgesic; Z79.52 Long term (current) use of systemic steroids; Z66 Do not resuscitate
CPT/HCPCS: 99215

== ENCOUNTER 2019-07-19 11:19 | Outpatient (CLI) | payer MEDICARE | END 2019-07-19 11:20 | disposition EMS.NT | LOC: EMS 11:19 | PROVIDERS: ATTEND Surgery | DX: R53.1 Weakness (principal) ==